=== PATIENT | male | born 1965 ===

== ENCOUNTER 2018-07-28 15:12 | Inpatient (IN) | payer OTHER ==
[2018-07-28 15:30] VITALS: O2SAT 100
[2018-07-28] MEDS ORDERED: Clindamycin 600mg/50ml D5W 600 MG/50 ML VIAL IVPB ONE (16:13)
--- NOTE | 2018-07-28 16:27 | ED PDOC ---
HPI: General Adult Time Seen by Provider: 07/28/18 16:03 Chief Complaint (Nursing): Psychiatric Evaluation Chief Complaint (Provider): Right lower extremity pain, auditory hallucinations History Per: Patient History/Exam Limitations: no limitations Additional Complaint(s): 53yo male, with history of schizophrenia, diabetes, comes to ER for evaluation of redness and swelling to his right lower extremity x 3 days. Patient was seen at [facility] recently and diagnosed with cellulitis, as well as a questionable DVT. Patient was discharged home on PO antibiotics but he is non- compliant. Patient additionally reports he has been having auditory hallucinations; patient unable to elucidate if the voices are directing him towards suicidal ideation. No additional medical complaints. Past Medical History Reviewed: Historical Data, Nursing Documentation, Vital Signs Vital Signs: Last Vital Signs Temp 98.4 F 07/28/18 15:27 Pulse 59 L 07/28/18 15:27 Resp 18 07/28/18 15:27 BP 132/80 07/28/18 15:27 Pulse Ox 100 07/28/18 15:27 - Medical History PMH: Anxiety, Asthma, Depression, Schizophrenia Denies: Chronic Kidney Disease - Surgical History Surgical History: No Surg Hx - Family History Family History: States: No Known Family Hx - Allergies Allergies/Adverse Reactions: Allergies Allergy/AdvReac Type Severity Reaction Status Date / Time No Known Allergies Allergy Verified 07/28/18 15:27 Review of Systems ROS Statement: Except As Marked, All Systems Reviewed And Found Negative Constitutional: Negative for: Fever, Chills Cardiovascular: Negative for: Chest Pain Respiratory: Negative for: Shortness of Breath Musculoskeletal: Positive for: Leg Pain (right) Neurological: Negative for: Weakness, Numbness Physical Exam - Reviewed Nursing Documentation Reviewed: Yes Vital Signs Reviewed: Yes - Physical Exam Appears: Positive for: Non-toxic, No Acute Distress Head Exam: Positive for: ATRAUMATIC, NORMAL INSPECTION, NORMOCEPHALIC Skin: Positive for: Normal Color Eye Exam: Positive for: Normal appearance Neck: Positive for: Normal, Supple Cardiovascular/Chest: Positive for: Regular Rate, Rhythm Respiratory: Positive for: Normal Breath Sounds. Negative for: Wheezing Pulses-Dorsalis Pedis (R): 2+ Pulses-Post. Tibialis (R): 2+ Extremity: Positive for: Tenderness (erythema and tenderness to right medial malleolus), Capillary Refill (< 2 seconds), Swelling (edema and erythema noted to ), Other (right lower extremity with superficial ulcer, present proximally 2x2cm on distal pre-tibial area. no drianage. ). Negative for: Calf Tenderness, Deformity Neurologic/Psych: Positive for: Alert, Oriented. Negative for: Motor/Sensory Deficits - ECG O2 Sat by Pulse Oximetry: 100 (RA) Pulse Ox Interpretation: Normal Medical Decision Making Medical Decision Makinyo male with cellulitis to right lower extremity, unlikely to have DVT as there is no calf tenderness Will try to obtain results of US done at [facility], [place]; if unable, will order US study Plan: -- Labs -- crisis evaluation -- IV Clindamycin -- EKG -- 1:1 Observation 1744 Chest x-ray FINDINGS: LUNGS: The lungs are well inflated and clear. PLEURA: No pleural effusions or pneumothorax. CARDIOVASCULAR: There is mild cardiomegaly. No aortic atherosclerotic calcifications present. OSSEOUS STRUCTURES: Within normal limits for the patient's age. VISUALIZED UPPER ABDOMEN: Normal. OTHER FINDINGS: None. IMPRESSION: No active pulmonary disease. 1800 US reports reviewed (from [facility]), patient noted to have chronic DVT in right lower extremity. Patient pending crisis evaluation. 1899 Patient to be signed out to Dr. Mason, pending labs, final dispo. Scribe Attestation: Documented by Aysha Salas acting as a scribe for Mik Mancini MD. Provider Attestation: All medical record entries made by the Scribe were at my direction and personally dictated by me. I have reviewed the chart and agree that the record accurately reflects my personal performance of the history, physical exam, medical decision making, and the department course for this patient. I have also personally directed, reviewed, and agree with the discharge instructions and disposition. Disposition - Clinical Impression Clinical Impression: Schizophrenia, Cellulitis, Chronic deep vein thrombosis (DVT) - Patient ED Disposition Is Patient to be Admitted: Transfer of Care - Disposition Disposition: Transfer of Care Disposition Time: 18:57 Condition: STABLE Forms: [facility] (Irish) Patient Signed Over To: Nancy Mason
--- NOTE | 2018-07-28 17:26 | RAD ---
Date of service: 07/28/2018 HISTORY: Cough COMPARISON: No prior. FINDINGS: LUNGS: The lungs are well inflated and clear. PLEURA: No pleural effusions or pneumothorax. CARDIOVASCULAR: There is mild cardiomegaly. No aortic atherosclerotic calcifications present. OSSEOUS STRUCTURES: Within normal limits for the patient's age. VISUALIZED UPPER ABDOMEN: Normal. OTHER FINDINGS: None. IMPRESSION: No active pulmonary disease.
[2018-07-28 17:29] LABS: BARBITURATES, UR NEGATIVE (NEGATIVE); BENZODIAZEPINES, UR NEGATIVE (NEGATIVE); OPIATES, UR NEGATIVE (NEGATIVE); PHENCYCLIDINE, UR NEGATIVE (NEGATIVE)
[2018-07-28 19:01] LABS: VENOUS BLOOD GAS BASE EXCESS 2.3 mmol/L (0.0-2.0); VENOUS BLOOD GAS PCO2 39 mmHg (40-60); VENOUS BLOOD GAS PO2 43 mm/Hg (30-55); VENOUS BLOOD PH 7.44 (7.32-7.43)
[2018-07-28 19:21] LABS: BASO % 0.5 % (0.0-2.0); EOS # 0.2 K/uL (0.0-0.7); EOS % 2.5 % (0.0-4.0); HEMOGLOBIN 12.6 g/dL (12.0-18.0); LYMPH # 1.5 K/uL (1.0-4.3); MEAN CELL VOLUME 87.6 fl (80.0-94.0); MEAN CORPUSCULAR HEMOGLOBIN 29.4 pg (27.0-31.0); MEAN CORPUSCULAR HGB CONC 33.5 g/dL (33.0-37.0); MEAN PLATELET VOLUME 7.8 fl (7.2-11.7); MONO # 0.7 K/uL (0.0-0.8); NEUT # 7.3 K/uL (1.8-7.0); RBC 4.28 Mil/uL (4.40-5.90); RED CELL DISTRIBUTION WIDTH 15.6 % (11.5-14.5); WHITE BLOOD COUNT 9.7 K/uL (4.8-10.8)
--- NOTE | 2018-07-28 19:22 | ED PDOC ---
- Laboratory Results Result Diagrams: 07/28/18 19:08 07/28/18 19:08 Lab Results: pO2 43 mm/Hg (30-55) 07/28/18 18:47 VBG pH 7.44 (7.32-7.43) H 07/28/18 18:47 VBG pCO2 39 mmHg (40-60) L 07/28/18 18:47 VBG HCO3 26.3 mmol/L 07/28/18 18:47 VBG Total CO2 27.7 mmol/L (22-28) 07/28/18 18:47 VBG O2 Sat (Calc) 83.9 % (40-65) H 07/28/18 18:47 VBG Base Excess 2.3 mmol/L (0.0-2.0) H 07/28/18 18:47 VBG Potassium 4.0 mmol/L (3.6-5.2) 07/28/18 18:47 Sodium 132.0 mmol/L (132-148) 07/28/18 18:47 Chloride 102.0 mmol/L (98-107) 07/28/18 18:47 Glucose 171 mg/dL (75-110) H 07/28/18 18:47 Lactate 1.5 mmol/L (0.7-2.1) 07/28/18 18:47 FiO2 21.0 % 07/28/18 18:47 - ECG O2 Sat by Pulse Oximetry: 100 (RA) Pulse Ox Interpretation: Normal Medical Decision Making Medical Decision Making: Receiving sign out: Patient signed out to me by Dr. Mancini at 1900 pending labs, final dispo. 1915 Patient seen by crisis team, and per Dr. Avery, patient to be admitted due to schizophrenia Scribe Attestation: Documented by Aysha Salas acting as a scribe for Nancy Mason MD. Provider Attestation: All medical record entries made by the Scribe were at my direction and personally dictated by me. I have reviewed the chart and agree that the record accurately reflects my personal performance of the history, physical exam, medical decision making, and the department course for this patient. I have also personally directed, reviewed, and agree with the discharge instructions and disposition. Disposition - Clinical Impression Clinical Impression: Schizophrenia, Cellulitis, Chronic deep vein thrombosis (DVT) - POA Present On Arrival: None - Disposition Disposition: Routine/Home Disposition Time: 19:16 Condition: STABLE
[2018-07-28 19:43] LABS: ALB/GLOB RATIO 1.1 (1.0-2.1); ALBUMIN 4.1 g/dL (3.5-5.0); ALT/SGPT 21 U/L (21-72); AST/SGOT 33 U/L (17-59); BLOOD UREA NITROGEN 15 mg/dl (9-20); CALCIUM 9.4 mg/dL (8.4-10.2); GFR NON-AFRICAN AMERICAN > 60
[2018-07-29] MEDS ORDERED: DiphenhydrAMINE 50 mg/ml Inj IM PRN (00:20)
[2018-07-29] MEDS ORDERED: Alum-Mag Hydrox-Simethicone Susp (30 mL) PO PRN (00:20)
[2018-07-29] MEDS ORDERED: Magnesium Hydroxide Susp 30 ml UD PO PRN (00:20)
--- NOTE | 2018-07-29 00:59 | PCM.BM ---
<Allen Pacheco - Last Filed: 07/29/18 00:55> Treatment Plan Problems - Problems identified on initial assessmt Altered Sleep Patterns Date Initiated: 07/29/18 Time Initiated: 00:56 Assessment reference: NA Status: Active Auditory Hallucinations Date Initiated: 07/29/18 Time Initiated: 00:56 Assessment reference: NA Status: Active Medication nonadherence Date Initiated: 07/29/18 Time Initiated: 00:57 Assessment reference: NA Status: Active Treatment assets and liabiliti Patient Assests: cooperative, negotiates basic needs, cognitively intact Patient Liabilities: live alone, financial problems, poor support system, substance abuse, medical problems, language/speech - Milieu Protocol Maintain good personal hygiene: daily Encourage regular showers, daily Remind patient to perform daily oral care, daily Assist patient to perform ADL's Conduct patient checks and document Observation sheet: Q15 minutes Maintain personal safety: every shift Educate patient to report safety concerns to staff, every shift Monitor environment for contraband/sharps Medication safety: Monitor for expected outcome, potential side effects: every shift, Assess barriers to learning: every shift, Assess readiness for medication education: every shift <Robbin Yun - Last Filed: 08/01/18 11:18> Discharge/Continuing Care - Treatment Team Participation Patient/Family/SO Statement: 08/01/18 11:19 Pt seen in treatment team on 07/31/18. Pt reported he is "ok" and "not feeling well." Pt reported he experienced a nightmare the previous night. Pt reported that the unit is too noisy and he has trouble resting. Pt expressed sadness that he does not have family in the area as they all reside in [place]. 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 Pt denied current SI/HI and AVT hallucinations. 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 ), resourceful, self-reliant, ADL independent, good support system (Circumstantial family support : Pt. identifies who resides in [place] as primary family support, although currently . Pt. reports having frequent communication with 4 brothers who reside in [place]. ), negotiates basic needs, cognitively intact Patient Liabilities: live alone (Pt. reports homelessness x1 year and currently residing with [facility]. ), financial problems (Pt. reports difficulties maintaining employment secondary to medical issues. Pt. recently filed for SSI and has money sent to him by occasionally. ), relationship conflicts (Pt. reports strained relationship with adult daughter (with who lives) and denies having communication with daughter x4 years. Pt. declined to elaborate on nature of discord), substance abuse (Pt. reports cocaine use x10 years and crack cocaine use x2 years. Pt. denied hx of outpatient or inpatient substance abuse tx. ), medical problems (Pt. reports hx of asthma, diabetes, cellulitis, blood clots. Pt. presents with wound to leg. Please see H&P.), legal issue ( Pt. reports being incarcerated in [place] for political opposition. Pt denies outstanding legal issues.), language/speech (Pt. primarily georgian speaking (limited conversational congolese).) Family Contact Family involvement: Famliy/SO not involved Family contact: Family has been contacted by patient, Patient declines to allow family contact at present - Goals for Treatment Patient goals for treatment: Patient to continue stabilization on 3NP through medication management and group/supportive therapy to address sxs of depression (improve sleep, energy, motivation), reduce auditory hallucinations, and eliminate SI. Patient to be encouraged to attend groups regularly to promote self-awareness, sobriety, and improve insight, compliance, coping skills and self-esteem. Patient to be provided with referral for appropriate level of aftercare to reduce risk of future hospitalizations and ensure safety in the community. Pt. identifies primary tx goal as having AH reduced and sleep disturbances improved so pt. can be better able to complete SSI process and work towards finding stable employment/housing. Discharge/Continuing Care - Education Needs Education Needs: Patient Medication, Patient Diagnosis/Disease Process, Patient Coping Skills, Patient Community resources, Patient Aftercare Safety Plan - Discharge Discharge Criteria: Tolerates medication w/o severe side effects, Free of Suicidal thoughts, Normal sleep pattern, Ability to care for self, No longer exhibiting s/s of withdrawal, Reduction of target symptoms (AH) Discharge to:: Penitentiary ([facility]), Substance Abuse Rehab (Pt. currently not agreeable to having inpatient rehab referrals completed.), Other (Pt. agreeable to [facility](outpatient substance abuse tx) and [facility] referrals.) - Treatment Team Participation Discussed with Family/SO: No Was Patient/Family/SO present at Treatment Team Meeting: Yes <Odette Avery - Last Filed: 08/03/18 10:01> - Diagnosis (1) Depression Status: Acute Interventions: 08/03/18 10:00 psychotherapy, pharmactherapy (2) Cocaine use disorder Status: Acute Interventions: 08/03/18 10:01 motivational therapy
[2018-07-29 08:16] LABS: INR 1.3; PROTHROMBIN TIME 14.8 Seconds (9.8-13.1)
[2018-07-29] MEDS ORDERED: Tmp-Smz 800 mg-160 mg DS Tab PO SCH (09:00)
[2018-07-29] MEDS ORDERED: Naproxen 500 MG TAB PO SCH (09:00)
--- NOTE | 2018-07-29 09:04 | CARD ---
APPROVED REPORT Date of service: 07/28/2018 EKG Measurement Heart [id number] <Conclusion> Sinus bradycardia Otherwise normal ECG
[2018-07-29] MEDS: Fluticasone-Salmeterol 100-50mcg Diskus IH SCH ×2 (10:02→21:25)
--- NOTE | 2018-07-29 10:46 | CP.PCM.CON ---
<PinedoHaroon - Last Filed: 07/29/18 11:42> History of Present Illness - History of Present Illness History of Present Illness: 53 y/o M with PMHx of DM, asthma and schizophrenia admitted to hospital for for suicidal ideation and auditory hallucinations. Patient was also diagnosed with right lower extremity cellulitis 3 days ago and received IV antibiotics at [facility]. Patient was discharged home on PO Abx but noncompliant. He also reports R upper back and midline neck swelling and redness for about 2-3 days. Reports having right LE chronic ulcer, questionable DVT for past 1 year and multiple episodes of right leg swelling and infection. Denies any fever, chills, nausea, vomiting, diarrhea, constipation, dizziness, CP or SOB. Pt takes Metformin and januvia for DM and ventolin PRN for asthma. Pt lives in [facility]. No additional medical complaints. PMD: None PMHx: DM, asthma, Schizophrenia, depression PSHx: Denies Allergies: Denies Hospitalization: Multiple previous admission at [facility] for foot infection and ulcer. Family Hx: Denies Social Hx: + coccain use. + alcohol use. Review of Systems - Constitutional Constitutional: absent: Chills, Fever - EENT Eyes: absent: Change in Vision Nose/Mouth/Throat: absent: Epistaxis - Cardiovascular Cardiovascular: absent: Chest Pain, Dyspnea - Respiratory Respiratory: absent: Cough - Gastrointestinal Gastrointestinal: absent: Abdominal Pain, Constipation, Diarrhea, Nausea - Genitourinary Genitourinary: absent: Change in Urinary Stream, Dysuria - Musculoskeletal Musculoskeletal: absent: Back Pain, Neck Pain - Integumentary Integumentary: Erythema, Furuncle, Rash, Skin Ulcer, Swelling Past Patient History - Past Social History Smoking Status: Never Smoked - CARDIAC Hx Cardiac Disorders: No - PULMONARY Hx Respiratory Disorders: Yes (asthma) - NEUROLOGICAL Hx Neurological Disorder: No - HEENT Hx HEENT Problems: No - RENAL Hx Chronic Kidney Disease: No - ENDOCRINE/METABOLIC Hx Endocrine Disorders: Yes (diabetes mellitus type 2) - HEMATOLOGICAL/ONCOLOGICAL Hx Blood Disorders: No - INTEGUMENTARY Hx Dermatological Problems: Yes Hx Cellulitis: Yes (right leg) - MUSCULOSKELETAL/RHEUMATOLOGICAL Hx Musculoskeletal Disorders: No - GASTROINTESTINAL Hx Gastrointestinal Disorders: No - GENITOURINARY/GYNECOLOGICAL Hx Genitourinary Disorders: No - PSYCHIATRIC Hx Substance Use: Yes (crack cocaine) - SURGICAL HISTORY Hx Surgeries: No - ANESTHESIA Hx Anesthesia: No Meds Allergies/Adverse Reactions: Allergies Allergy/AdvReac Type Severity Reaction Status Date / Time No Known Allergies Allergy Verified 07/28/18 15:27 - Medications Medications: Current Medications Acetaminophen (Tylenol 325mg Tab) 650 mg PO Q4 PRN PRN Reason: pain level 4-7 Al Hydrox/Mg Hydrox/Simethicone (Maalox Plus 30 Ml) 30 ml PO Q4 PRN PRN Reason: Dyspepsia Cephalexin Monohydrate (Keflex) 500 mg PO QID [facility]; Protocol Last Admin: 07/29/18 10:02 Dose: 500 mg Diphenhydramine HCl (Benadryl) 50 mg IM Q6 PRN PRN Reason: Extrapyramidal S/S Unable PO Diphenhydramine HCl (Benadryl) 50 mg PO Q6 PRN PRN Reason: Extrapyramidal Symptoms Diphenhydramine HCl (Benadryl) 50 mg PO HS PRN PRN Reason: Sleep Last Admin: 07/29/18 00:38 Dose: 50 mg Haloperidol (Haldol) 5 mg PO Q4 PRN PRN Reason: Agitation Haloperidol Lactate (Haldol) 5 mg IM Q4 PRN PRN Reason: Agitation, Unable to Take PO Lorazepam (Ativan) 2 mg IM Q8H PRN PRN Reason: Anxiety/Agitation,Unable PO Lorazepam (Ativan) 1 mg PO Q8 PRN PRN Reason: Anxiety/Agitation Magnesium Hydroxide (Milk Of Magnesia) 30 ml PO HS PRN PRN Reason: Constipation Metformin HCl (Glucophage) 1,000 mg PO BID [facility] Last Admin: 07/29/18 10:03 Dose: 1,000 mg Fluticasone/Salmeterol (Advair Diskus 100/50) 1 puff IH Q12 [facility] Last Admin: 07/29/18 10:02 Dose: 1 puff Sitagliptin Phosphate (Januvia) 50 mg PO DAILY [facility] Last Admin: 07/29/18 10:02 Dose: 50 mg Trimethoprim/Sulfamethoxazole (Bactrim Ds Tab) 1 tab PO BID [facility]; Protocol Last Admin: 07/29/18 10:02 Dose: 1 tab Physical Exam - Constitutional Appears: Well, No Acute Distress - Head Exam Head Exam: ATRAUMATIC, NORMAL INSPECTION, NORMOCEPHALIC - Eye Exam Eye Exam: EOMI, Normal appearance - ENT Exam ENT Exam: Mucous Membranes Moist - Respiratory Exam Respiratory Exam: Clear to Auscultation Bilateral, NORMAL BREATHING PATTERN - Cardiovascular Exam Cardiovascular Exam: REGULAR RHYTHM, +S1, +S2 - GI/Abdominal Exam GI & Abdominal Exam: Normal Bowel Sounds, Soft. absent: Distended - Extremities Exam Extremities exam: Positive for: pedal edema, tenderness Additional comments: Right LE: Hyperpigmentation of R Lower leg with 3 x 3 chronic ulcer with tenderness, + Erythema and tenderness on R medial malleolus. No calf tenderness B/L - Back Exam Back exam: absent: paraspinal tenderness, tenderness - Neurological Exam Neurological exam: Alert, Altered, Oriented x3 - Skin Skin Exam: Erythema, Rash, Warm Additional comments: Erythema and swelling noted with central punctum on R upper back and midline neck. Results - Vital Signs Recent Vital Signs: Last Vital Signs Temp 98.0 F 07/29/18 09:20 Pulse 70 07/29/18 09:20 Resp 18 07/29/18 09:20 BP 150/80 07/29/18 09:20 Pulse Ox 100 07/28/18 19:22 - Labs Result Diagrams: 07/28/18 19:08 07/28/18 19:08 Labs: Laboratory Results - last 24 hr 07/28/18 07/28/18 07/28/18 16:55 18:47 19:08 WBC RBC Hgb Hct MCV MCH MCHC RDW Plt Count MPV Neut % (Auto) Lymph % (Auto) Bowman % (Auto) Eos % (Auto) Baso % (Auto) Neut # (Auto) Lymph # (Auto) Bowman # (Auto) Eos # (Auto) Baso # (Auto) PT INR pO2 43 VBG pH 7.44 H VBG pCO2 39 L VBG HCO3 26.3 VBG Total CO2 27.7 VBG O2 Sat (Calc) 83.9 H VBG Base Excess 2.3 H VBG Potassium 4.0 Sodium 132.0 136 Chloride 102.0 96 L Glucose 171 H Lactate 1.5 FiO2 21.0 Potassium 4.0 Carbon Dioxide 31 H Anion Gap 13 BUN 15 Creatinine 1.1 Est GFR ( Amer) > 60 Est GFR (Non-Af Amer) > 60 POC Glucose (mg/dL) Random Glucose 172 H Calcium 9.4 Total Bilirubin 0.3 AST 33 ALT 21 Alkaline Phosphatase 62 Total Protein 7.8 Albumin 4.1 Globulin 3.6 Albumin/Globulin Ratio 1.1 Triglycerides Cholesterol LDL Cholesterol Direct HDL Cholesterol Thyroxine (T4) TSH 3rd Generation Venous Blood Potassium 4.0 Urine Opiates Screen Negative Urine Methadone Screen Negative Ur Barbiturates Screen Negative Ur Phencyclidine Scrn Negative Ur Amphetamines Screen Negative U Benzodiazepines Scrn Negative U Oth Cocaine Metabols Positive H U Cannabinoids Screen Negative Alcohol, Quantitative < 10 07/28/18 07/29/18 07/29/18 19:08 06:44 07:54 WBC 9.7 RBC 4.28 L Hgb 12.6 Hct 37.5 MCV 87.6 MCH 29.4 MCHC 33.5 RDW 15.6 H Plt Count 241 MPV 7.8 Neut % (Auto) 75.0 Lymph % (Auto) 15.0 L Bowman % (Auto) 7.0 Eos % (Auto) 2.5 Baso % (Auto) 0.5 Neut # (Auto) 7.3 H Lymph # (Auto) 1.5 Bowman # (Auto) 0.7 Eos # (Auto) 0.2 Baso # (Auto) 0.0 PT INR pO2 VBG pH VBG pCO2 VBG HCO3 VBG Total CO2 VBG O2 Sat (Calc) VBG Base Excess VBG Potassium Sodium Chloride Glucose Lactate FiO2 Potassium Carbon Dioxide Anion Gap BUN Creatinine Est GFR ( Amer) Est GFR (Non-Af Amer) POC Glucose (mg/dL) 89 Random Glucose Calcium Total Bilirubin AST ALT Alkaline Phosphatase Total Protein Albumin Globulin Albumin/Globulin Ratio Triglycerides 85 Cholesterol 160 LDL Cholesterol Direct 80 HDL Cholesterol 47 Thyroxine (T4) 8.18 TSH 3rd Generation 1.76 Venous Blood Potassium Urine Opiates Screen Urine Methadone Screen Ur Barbiturates Screen Ur Phencyclidine Scrn Ur Amphetamines Screen U Benzodiazepines Scrn U Oth Cocaine Metabols U Cannabinoids Screen Alcohol, Quantitative 07/29/18 07:54 WBC RBC Hgb Hct MCV MCH MCHC RDW Plt Count MPV Neut % (Auto) Lymph % (Auto) Bowman % (Auto) Eos % (Auto) Baso % (Auto) Neut # (Auto) Lymph # (Auto) Bowman # (Auto) Eos # (Auto) Baso # (Auto) PT 14.8 H INR 1.3 pO2 VBG pH VBG pCO2 VBG HCO3 VBG Total CO2 VBG O2 Sat (Calc) VBG Base Excess VBG Potassium Sodium Chloride Glucose Lactate FiO2 Potassium Carbon Dioxide Anion Gap BUN Creatinine Est GFR ( Amer) Est GFR (Non-Af Amer) POC Glucose (mg/dL) Random Glucose Calcium Total Bilirubin AST ALT Alkaline Phosphatase Total Protein Albumin Globulin Albumin/Globulin Ratio Triglycerides Cholesterol LDL Cholesterol Direct HDL Cholesterol Thyroxine (T4) TSH 3rd Generation Venous Blood Potassium Urine Opiates Screen Urine Methadone Screen Ur Barbiturates Screen Ur Phencyclidine Scrn Ur Amphetamines Screen U Benzodiazepines Scrn U Oth Cocaine Metabols U Cannabinoids Screen Alcohol, Quantitative Assessment & Plan - Assessment and Plan (Free Text) Assessment: 53 y/o M with Hx of schizophrenia, depression, DM and asthma admitted to hospital for suicidal ideation, auditory hallucinations. Patient also has Right lower extremity, right upper back and neck cellulitis. Plan: Auditory hallucinations/ sleep distrubance - Manage as per psych Cellulitis - Likely secondary to insect bite, [facility] stay - Afebrile, VSS - Will resume Kelfex 500 QID - DC Bactrim due to possible interaction w/ warfarin - Tylenol 650 Q4PRN for pain - F/U Blood Cx DM - Continue home medications Metformin and januvia - Glucose 89 today - F/U A1c Asthma - Controlled with advair 1 puff BID - Continue home meds. Chronic DVT - Will resume home medication - Start Warfarin 8 mg PO dailly - F/U INR in 72 hrs <Joanne Munoz - Last Filed: 07/30/18 09:09> Meds - Medications Medications: Current Medications Acetaminophen (Tylenol 325mg Tab) 650 mg PO Q4 PRN PRN Reason: pain level 4-7 Al Hydrox/Mg Hydrox/Simethicone (Maalox Plus 30 Ml) 30 ml PO Q4 PRN PRN Reason: Dyspepsia Aripiprazole (Abilify) 5 mg PO HS SAROJ Last Admin: 07/29/18 21:22 Dose: 5 mg Cephalexin Monohydrate (Keflex) 500 mg PO QID [facility]; Protocol Last Admin: 07/30/18 08:38 Dose: 500 mg Diphenhydramine HCl (Benadryl) 50 mg IM Q6 PRN PRN Reason: Extrapyramidal S/S Unable PO Diphenhydramine HCl (Benadryl) 50 mg PO Q6 PRN PRN Reason: Extrapyramidal Symptoms Diphenhydramine HCl (Benadryl) 50 mg PO HS PRN PRN Reason: Sleep Last Admin: 07/29/18 00:38 Dose: 50 mg Gabapentin (Neurontin) 100 mg PO TID [facility] Last Admin: 07/30/18 08:38 Dose: 100 mg Haloperidol (Haldol) 5 mg PO Q4 PRN PRN Reason: Agitation Haloperidol Lactate (Haldol) 5 mg IM Q4 PRN PRN Reason: Agitation, Unable to Take PO Lorazepam (Ativan) 2 mg IM Q8H PRN PRN Reason: Anxiety/Agitation,Unable PO Lorazepam (Ativan) 1 mg PO Q8 PRN PRN Reason: Anxiety/Agitation Magnesium Hydroxide (Milk Of Magnesia) 30 ml PO HS PRN PRN Reason: Constipation Metformin HCl (Glucophage) 1,000 mg PO BID [facility] Last Admin: 07/30/18 08:38 Dose: 1,000 mg Fluticasone/Salmeterol (Advair Diskus 100/50) 1 puff IH Q12 [facility] Last Admin: 07/30/18 08:38 Dose: 1 puff Sertraline HCl (Zoloft) 25 mg PO DAILY [facility] Last Admin: 07/30/18 08:38 Dose: 25 mg Sitagliptin Phosphate (Januvia) 50 mg PO DAILY [facility] Last Admin: 07/30/18 08:37 Dose: 50 mg Trazodone HCl (Desyrel) 50 mg PO HS [facility] Last Admin: 07/29/18 21:23 Dose: 50 mg Results - Vital Signs Recent Vital Signs: Last Vital Signs Temp 97.9 F 07/29/18 17:00 Pulse 71 07/29/18 17:00 Resp 18 07/29/18 17:00 BP 142/80 07/29/18 17:00 Pulse Ox 100 07/28/18 19:22 - Labs Result Diagrams: 07/28/18 19:08 07/28/18 19:08 Labs: Laboratory Results - last 24 hr 07/29/18 07/29/18 07/29/18 07:54 07:54 10:59 POC Glucose (mg/dL) 97 Hemoglobin A1c 6.5 RPR Nonreactive 07/29/18 07/29/18 07/30/18 16:56 20:11 06:22 POC Glucose (mg/dL) 134 H 122 H 153 H Hemoglobin A1c RPR Attending/Attestation - Attestation I have personally seen and examined this patient.: Yes I have fully participated in the care of the patient.: Yes I have reviewed all pertinent clinical information: Yes Notes (Text): 07/30/18 09:09 Agree with findings and plan as above.
--- NOTE | 2018-07-29 15:32 | PCM.PSYCH ---
Initial Psychiatric Evaluation - Initial Psychiatric Evaluation Type of Admission: Voluntary Legal Status: Capacity Chief Complaint (in patient's own words): I am very depressed History of Present Illness and Precipitating Events: pt is 53 ys old male curently not in formal psychiatric treatment, previously diagnosed with schizophrenia/ depression, presented to ER with depressed mood and suicidal ideation pt has been increasingly depressed in the context of medical problems/DVT financial problems and being homeless living in a group home, pt reported for last few weeks, he has been experiencing poor sleep, decreased appetite feeling hope less and helpless, self medicating with cocaine and started experiencing auditroy hallucinations telling him to hurt himself on the unit patient continues to be depressed, reporting passive suicidal ideation without active plan on the unit , reporting non command auditory hallucinations putting him down Current Medications: Active Medications Generic Name Dose Route Start Last Admin Trade Name Freq PRN Reason Stop Dose Admin Acetaminophen 650 mg 07/29/18 00:20 Tylenol 325mg Tab PO Q4 PRN pain level 4-7 Al Hydrox/Mg Hydrox/Simethicone 30 ml 07/29/18 00:20 Maalox Plus 30 Ml PO Q4 PRN Dyspepsia Aripiprazole 5 mg 07/29/18 22:00 Abilify PO HS SAROJ Cephalexin Monohydrate 500 mg 07/29/18 09:00 07/29/18 10:02 Keflex PO 500 mg QID SAROJ Administration Protocol Diphenhydramine HCl 50 mg 07/29/18 00:20 Benadryl IM Q6 PRN Extrapyramidal S/S Unable PO Diphenhydramine HCl 50 mg 07/29/18 00:20 Benadryl PO Q6 PRN Extrapyramidal Symptoms Diphenhydramine HCl 50 mg 07/29/18 00:22 07/29/18 00:38 Benadryl PO 50 mg HS PRN Administration Sleep Gabapentin 100 mg 07/29/18 17:00 Neurontin PO TID SAROJ Haloperidol 5 mg 07/29/18 00:20 Haldol PO Q4 PRN Agitation Haloperidol Lactate 5 mg 07/29/18 00:20 Haldol IM Q4 PRN Agitation, Unable to Take PO Lorazepam 2 mg 07/29/18 00:20 Ativan IM Q8H PRN Anxiety/Agitation,Unable PO Lorazepam 1 mg 07/29/18 00:20 Ativan PO Q8 PRN Anxiety/Agitation Magnesium Hydroxide 30 ml 07/29/18 00:20 Milk Of Magnesia PO HS PRN Constipation Metformin HCl 1,000 mg 07/29/18 09:00 07/29/18 10:03 Glucophage PO 1,000 mg BID SAROJ Administration Fluticasone/Salmeterol 1 puff 07/29/18 09:00 07/29/18 10:02 Advair Diskus 100/50 IH 1 puff Q12 SAROJ Administration Sertraline HCl 25 mg 07/30/18 09:00 Zoloft PO DAILY SAROJ Sitagliptin Phosphate 50 mg 07/29/18 09:00 07/29/18 10:02 Januvia PO 50 mg DAILY SAROJ Administration Trazodone HCl 50 mg 07/29/18 22:00 Desyrel PO HS SAROJ Past Psychiatric History - Past Psychiatric History Explanation of prior treatment: no previous psychiatric hospitalizations History of ETOH/Drug Use: cocaine Pertinent Medical Hx (Current Medical&Sleep Prob, Allergies): Allergies Allergy/AdvReac Type Severity Reaction Status Date / Time No Known Allergies Allergy Verified 07/28/18 15:27 Cephalexin [cephalexin] 500 mg PO QID 07/28/18 Fluticasone/Salmeterol [Fluticasone-Salmeterol 113-14] 1 each IH DAILY 07/28/18 MetFORMIN [glucOPHAGE] 1,000 mg PO BID 07/28/18 Naproxen [Naprosyn] 500 mg PO Q12 07/28/18 SITagliptin [Januvia] 50 mg PO DAILY 07/28/18 Sulfamethoxazole/Trimethoprim [Bactrim DS 800 mg-160 mg] 1 tab PO BID 07/28/18 Warfarin [Coumadin] 8 mg PO DAILY 07/28/18 Mental Status Examination - Personal Presentation Personal Presentation: Looks older than stated age - Affect Affect: Constricted, Depressed - Motor Activity Motor Activity: Psychomotor Retardation - Reliability in Providing Information Reliability in Providing Information: Fair - Speech Speech: Relevant - Mood Mood: Depressed, Anxious - Formal Thought Process Formal Thought Process: Hallucinations, Circumstantial - Hallucinations/Delusions Hallucinations: Auditory - Obsessions/Compulsions Obsessions: No Compulsions: No - Cognitive Functions Orientation: Person, Place Sensorium: Alert Attention/Concentration: Easily distracted Abstract Thinking: Singer Judgement: Imparied, as evidence by: Poor judgement, Imparied, as evidence by: Lack of insight into illness - Risk Risk: Suicidal, Diminished functioning - Strength & Assets Inventory Strength & Assets Inventory: Life experience - Limitations Additional comments: poor social support DSM 5 DX - DSM 5 DSM 5 Diagnosis: major depression cocaine abuse - Recommended/Plan of Treatment Treatment Recommendations and Plan of Treatment: start zoloft 25mg daily neurontin 100mg tid abilify 5mg qhs motivational group and supportive therapy
[2018-07-30] MEDS: Fluticasone-Salmeterol 100-50mcg Diskus IH SCH ×2 (08:38→21:11)
--- NOTE | 2018-07-30 15:37 | PCM.PYCHPN ---
Psychiatric Progress Note - Psychiatric Progress Note Patient seen today, length of contact: pt evaluated discussed with team chart reviewed Patient Chief Complaint: I feel very tired Problems Identified/Issues Discussed: pt seen in bed , poor eye contact, guarded, poor motivation, low energy, feeling hopeless, pt currently going through cocaine withdrawal, continues to report non command auditory hallucinations, denied command hallucinations, denied active thoughts of self harm on the unit Medical Problems: no previous psychiatric hospitalizations DSM 5 Symptoms Update: 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 Medication Change: Yes (increase zoloft gradually) Medical Record Reviewed: Yes Mental Status Examination - Cognitive Function Orientation: Person, Place Memory: Intact Attention: WNL Concentration: Poor Association: WNL Fund of Knowledge: Poor Decription of patient's judgement and insights: partial insight , poor judgment - Mood Mood: Depressed, Anxious - Affect Affect: Constricted, Depressed - Speech Speech: Soft - Formal Thought Process Formal Thought Process: Hallucinations, Circumstantial - Suicidal Ideation Suicidal Ideation: No - Homicidal Ideation Homicidal Ideation: No Goal/Treatment Plan - Goal/Treatment Plan Need for Continued Stay: Severe depression anxiety, Discharge may exacerbated symptoms Progress Toward Problem(s) and Goals/Treatment Plan: zoloft 25mg daily/ increase gradually neurontin 100mg tid abilify 5mg qhs motivational group and supportive therapy
[2018-07-30] MEDS: Naproxen 500 MG TAB PO SCH (17:40)
[2018-07-30 20:56] LABS: INR 1.3
[2018-07-31] MEDS: Fluticasone-Salmeterol 100-50mcg Diskus IH SCH ×2 (08:58→21:23)
[2018-07-31] MEDS: Naproxen 500 MG TAB PO SCH ×2 (09:00→17:33)
[2018-07-31 09:44] LABS: INR 1.2; PROTHROMBIN TIME 14.1 Seconds (9.8-13.1)
--- NOTE | 2018-07-31 16:02 | PCM.PYCHPN ---
Psychiatric Progress Note - Psychiatric Progress Note Patient seen today, length of contact: pt evaluated discussed with team chart reviewed Patient Chief Complaint: I still feel depressed Problems Identified/Issues Discussed: pt evaluated with treatment team, presenting with depressed mood and affect, relates that to his current medical and financial problems, discussed with pt importance of attending groups and participating in treatment, discussed increasing dose of zoloft, motivational therapy provided about cocaine use and its effect on current mental status , pt denied command hallucinations, denied active thoughts of self harm on the unit Medical Problems: no previous psychiatric hospitalizations Medication Change: Yes (increase zoloft gradually) Medical Record Reviewed: Yes Mental Status Examination - Cognitive Function Orientation: Person, Place Memory: Intact Attention: WNL Concentration: Poor Association: WNL Fund of Knowledge: Poor Decription of patient's judgement and insights: partial insight , poor judgment - Mood Mood: Depressed, Anxious - Affect Affect: Constricted, Depressed - Speech Speech: Soft - Formal Thought Process Formal Thought Process: Hallucinations, Circumstantial - Suicidal Ideation Suicidal Ideation: No - Homicidal Ideation Homicidal Ideation: No Goal/Treatment Plan - Goal/Treatment Plan Need for Continued Stay: Severe depression anxiety, Discharge may exacerbated symptoms Progress Toward Problem(s) and Goals/Treatment Plan: zoloft 50mg daily/ increase gradually neurontin 100mg tid abilify 5mg qhs wound care consult podiatry consult motivational group and supportive therapy
--- NOTE | 2018-07-31 16:25 | CP.PCM.CON ---
History of Present Illness - History of Present Illness History of Present Illness: Podiatry consult note for Dr. Villalba, 53 y/o M with PMHx of DM, asthma and schizophrenia seen and evaluated for right lower extremity cellulitis. Patient states it started about 3 days ago and patient received IV antibiotics at [facility]. Patient was discharged home on PO Abx, however, patient states he is non-compliant at this time. Patient also reports having right LE chronic abscess, which is painful. Patient denies any fever, chills, nausea, vomiting, diarrhea, constipation, dizziness, CP or SOB. PMD: None PMHx: DM, asthma, Schizophrenia, depression PSHx: Denies Allergies: Denies Hospitalization: Multiple previous admission at [facility] for foot infection and ulcer. Family Hx: Denies Social Hx: + coccain use. + alcohol use. Review of Systems - Review of Systems All systems: reviewed and no additional remarkable complaints except Review of Systems: As per HPI Past Patient History - Past Social History Smoking Status: Never Smoked - CARDIAC Hx Cardiac Disorders: No - PULMONARY Hx Respiratory Disorders: Yes (asthma) - NEUROLOGICAL Hx Neurological Disorder: No - HEENT Hx HEENT Problems: No - RENAL Hx Chronic Kidney Disease: No - ENDOCRINE/METABOLIC Hx Endocrine Disorders: Yes (diabetes mellitus type 2) - HEMATOLOGICAL/ONCOLOGICAL Hx Blood Disorders: No - INTEGUMENTARY Hx Dermatological Problems: Yes Hx Cellulitis: Yes (right leg) - MUSCULOSKELETAL/RHEUMATOLOGICAL Hx Musculoskeletal Disorders: No - GASTROINTESTINAL Hx Gastrointestinal Disorders: No - GENITOURINARY/GYNECOLOGICAL Hx Genitourinary Disorders: No - PSYCHIATRIC Hx Substance Use: Yes (crack cocaine) - SURGICAL HISTORY Hx Surgeries: No - ANESTHESIA Hx Anesthesia: No Meds Allergies/Adverse Reactions: Allergies Allergy/AdvReac Type Severity Reaction Status Date / Time No Known Allergies Allergy Verified 07/28/18 15:27 - Medications Medications: Current Medications Acetaminophen (Tylenol 325mg Tab) 650 mg PO Q4 PRN PRN Reason: pain level 4-7 Al Hydrox/Mg Hydrox/Simethicone (Maalox Plus 30 Ml) 30 ml PO Q4 PRN PRN Reason: Dyspepsia Aripiprazole (Abilify) 5 mg PO HS [facility] Last Admin: 07/30/18 21:10 Dose: 5 mg Cephalexin Monohydrate (Keflex) 500 mg PO QID [facility]; Protocol Last Admin: 07/31/18 13:16 Dose: 500 mg Diphenhydramine HCl (Benadryl) 50 mg IM Q6 PRN PRN Reason: Extrapyramidal S/S Unable PO Diphenhydramine HCl (Benadryl) 50 mg PO Q6 PRN PRN Reason: Extrapyramidal Symptoms Diphenhydramine HCl (Benadryl) 50 mg PO HS PRN PRN Reason: Sleep Last Admin: 07/30/18 21:23 Dose: 50 mg Gabapentin (Neurontin) 100 mg PO TID [facility] Last Admin: 07/31/18 13:16 Dose: 100 mg Haloperidol (Haldol) 5 mg PO Q4 PRN PRN Reason: Agitation Haloperidol Lactate (Haldol) 5 mg IM Q4 PRN PRN Reason: Agitation, Unable to Take PO Lorazepam (Ativan) 2 mg IM Q8H PRN PRN Reason: Anxiety/Agitation,Unable PO Lorazepam (Ativan) 1 mg PO Q8 PRN PRN Reason: Anxiety/Agitation Magnesium Hydroxide (Milk Of Magnesia) 30 ml PO HS PRN PRN Reason: Constipation Metformin HCl (Glucophage) 1,000 mg PO BID [facility] Last Admin: 07/31/18 09:01 Dose: 1,000 mg Naproxen (Naproxen) 500 mg PO BID [facility] Last Admin: 07/31/18 09:00 Dose: 500 mg Fluticasone/Salmeterol (Advair Diskus 100/50) 1 puff IH Q12 [facility] Last Admin: 07/31/18 08:58 Dose: 1 puff Sitagliptin Phosphate (Januvia) 50 mg PO DAILY [facility] Last Admin: 07/31/18 09:01 Dose: 50 mg Trazodone HCl (Desyrel) 50 mg PO HS [facility] Last Admin: 07/30/18 21:10 Dose: 50 mg Physical Exam - Constitutional Appears: Well, Non-toxic, No Acute Distress - Head Exam Head Exam: ATRAUMATIC, NORMOCEPHALIC - Extremities Exam Additional comments: Bilateral Lower Extremity Exam VASC: DP and PT 2/4 bilaterally, CFT less than 3 seconds X 10, no edema, positive erythema to the RLE NEURO: grossly intact DERM: superficial ulceration noted to the medial malleolus of the right leg, with positive fluctuance, and erythema, no probe to bone, no tunneling, no malodor, another ulceration noted to the anterior leg about 3 cm X 3 cm with granular base, no erythema, no probe to bone, no tunneling, no malodor ORTHO: pain on palpation to the abscess, MSK 5/5 - Neurological Exam Neurological exam: Alert, Oriented x3 - Psychiatric Exam Psychiatric exam: Normal Affect, Normal Mood Results - Vital Signs Recent Vital Signs: Last Vital Signs Temp 97.1 F L 07/31/18 16:11 Pulse 101 H 07/31/18 16:11 Resp 18 07/31/18 16:11 BP 124/83 07/31/18 16:11 Pulse Ox 100 07/28/18 19:22 - Labs Result Diagrams: 07/28/18 19:08 07/28/18 19:08 Labs: Laboratory Results - last 24 hr 07/30/18 07/30/18 07/30/18 16:52 20:13 20:40 PT 15.0 H INR 1.3 POC Glucose (mg/dL) 114 H 160 H 07/31/18 07/31/18 07/31/18 06:24 09:00 12:20 PT 14.1 H INR 1.2 POC Glucose (mg/dL) 99 136 H Assessment & Plan - Assessment and Plan (Free Text) Assessment: 53 y/o male consulted on for RLE cellulitis with right leg superficial abscess Plan: Patient seen and evaluated Plan discussed with Dr. Villalba Chart, labs and vitals were reviewed Abscess debrided with a #[id number] and about 5cc of purulent drainage was expressed Patient wound was cleaned with saline and dressed with xeroform, ABD, paper tape Continue PO Abx Wound cultures were obtained Right ankle xrays were ordered Right leg MRI without contrast was ordered Podiatry will continue to follow patient while in house - Date & Time Date: 07/31/18 Time: 16:55
[2018-08-01 07:13] LABS: INR 1.3; PROTHROMBIN TIME 14.6 Seconds (9.8-13.1)
--- NOTE | 2018-08-01 09:03 | PCM.PYCHPN ---
Psychiatric Progress Note - Psychiatric Progress Note Patient seen today, length of contact: pt evaluated discussed with team chart reviewed Patient Chief Complaint: pt still hears voices telling him that he is no good and nothing better for you . t feels that his body is dying in a nightmare and gets very scared .pt remains with poor insight and need further stabilization. Medication Change: Yes (increase zoloft gradually) Medical Record Reviewed: Yes Mental Status Examination - Cognitive Function Orientation: Person, Place Memory: Intact Attention: WNL Concentration: Poor Association: WNL Fund of Knowledge: Poor - Mood Mood: Depressed, Anxious - Affect Affect: Constricted, Depressed - Speech Speech: Soft - Formal Thought Process Formal Thought Process: Hallucinations, Circumstantial - Suicidal Ideation Suicidal Ideation: No - Homicidal Ideation Homicidal Ideation: No Goal/Treatment Plan - Goal/Treatment Plan Need for Continued Stay: Severe depression anxiety, Discharge may exacerbated symptoms Progress Toward Problem(s) and Goals/Treatment Plan: will increase abilify to 7 mg hs to address the depression and psychosis and engage pt in therapy and groups. D/ c plans as per dr fofana.
[2018-08-01] MEDS: Naproxen 500 MG TAB PO SCH ×2 (09:49→17:58)
[2018-08-01] MEDS: Fluticasone-Salmeterol 100-50mcg Diskus IH SCH ×2 (09:50→21:45)
--- NOTE | 2018-08-01 14:22 | CP.PCM.PN ---
Subjective - Date & Time of Evaluation Date of Evaluation: 08/01/18 Time of Evaluation: 14:19 - Subjective Subjective: Podiatry progress note for Dr. Villalba, 53 y/o M with PMHx of DM, asthma and schizophrenia seen and evaluated for right lower extremity cellulitis. AAOx3, denies pain to the lower extremity. Patient denies any fever, chills, nausea, vomiting, diarrhea, constipation, dizziness, CP or SOB. Objective - Vital Signs/Intake and Output Vital Signs (last 24 hours): Temp Pulse Resp BP Pulse Ox 96.1 F L 64 18 121/76 100 08/01/18 09:00 08/01/18 09:00 08/01/18 09:00 08/01/18 09:00 07/28/18 19:22 - Medications Medications: Current Medications Acetaminophen (Tylenol 325mg Tab) 650 mg PO Q4 PRN PRN Reason: pain level 4-7 Al Hydrox/Mg Hydrox/Simethicone (Maalox Plus 30 Ml) 30 ml PO Q4 PRN PRN Reason: Dyspepsia Aripiprazole (Abilify) 5 mg PO HS [facility] Aripiprazole (Abilify) 2 mg PO DAILY [facility] Cephalexin Monohydrate (Keflex) 500 mg PO QID [facility]; Protocol Last Admin: 08/01/18 13:51 Dose: 500 mg Diphenhydramine HCl (Benadryl) 50 mg IM Q6 PRN PRN Reason: Extrapyramidal S/S Unable PO Diphenhydramine HCl (Benadryl) 50 mg PO Q6 PRN PRN Reason: Extrapyramidal Symptoms Diphenhydramine HCl (Benadryl) 50 mg PO HS PRN PRN Reason: Sleep Last Admin: 07/31/18 23:32 Dose: 50 mg Gabapentin (Neurontin) 100 mg PO TID [facility] Last Admin: 08/01/18 13:52 Dose: 100 mg Haloperidol (Haldol) 5 mg PO Q4 PRN PRN Reason: Agitation Haloperidol Lactate (Haldol) 5 mg IM Q4 PRN PRN Reason: Agitation, Unable to Take PO Lorazepam (Ativan) 2 mg IM Q8H PRN PRN Reason: Anxiety/Agitation,Unable PO Lorazepam (Ativan) 1 mg PO Q8 PRN PRN Reason: Anxiety/Agitation Magnesium Hydroxide (Milk Of Magnesia) 30 ml PO HS PRN PRN Reason: Constipation Metformin HCl (Glucophage) 1,000 mg PO BID [facility] Last Admin: 08/01/18 09:48 Dose: 1,000 mg Naproxen (Naproxen) 500 mg PO BID [facility] Last Admin: 08/01/18 09:49 Dose: 500 mg Fluticasone/Salmeterol (Advair Diskus 100/50) 1 puff IH Q12 [facility] Last Admin: 08/01/18 09:50 Dose: 1 puff Sitagliptin Phosphate (Januvia) 50 mg PO DAILY [facility] Last Admin: 08/01/18 09:48 Dose: 50 mg Trazodone HCl (Desyrel) 50 mg PO HS [facility] Last Admin: 07/31/18 21:24 Dose: 50 mg - Labs Labs: 07/28/18 19:08 07/28/18 19:08 PT 14.6 Seconds (9.8-13.1) H 08/01/18 05:50 INR 1.3 08/01/18 05:50 - Constitutional Appears: Well, Non-toxic - Head Exam Head Exam: ATRAUMATIC - Extremities Exam Additional comments: Bilateral Lower Extremity Exam VASC: DP and PT 2/4 bilaterally, CFT less than 3 seconds X 10, no edema, positive erythema to the RLE NEURO: grossly intact DERM: superficial ulceration noted to the medial malleolus of the right leg, wit h previous incision and drainage site, erythema decreasing , no probe to bone, no tunneling, no malodor, another ulceration noted to the anterior leg about 3 cm X 3 cm with granular base, no erythema, no probe to bone, no tunneling, no malodor ORTHO: pain on palpation to the previous abscess, MSK 5/5 Assessment and Plan - Assessment and Plan (Free Text) Assessment: 53 y/o male consulted on for RLE cellulitis with right leg superficial abscess; drained on 07/31 Plan: Patient seen and evaluated Plan discussed with Dr. Villalba Chart, labs and vitals were reviewed Continue PO Abx Wound cultures: gram + cocci Right ankle xrays ordered Right leg MRI without contrast was ordered: read pending Podiatry will continue to follow patient while in house
[2018-08-02 06:53] LABS: INR 1.6; PROTHROMBIN TIME 18.6 Seconds (9.8-13.1)
[2018-08-02] MEDS: Naproxen 500 MG TAB PO SCH ×2 (09:24→18:02)
[2018-08-02] MEDS: Fluticasone-Salmeterol 100-50mcg Diskus IH SCH ×2 (09:26→21:05)
--- NOTE | 2018-08-02 11:21 | CP.PCM.PN ---
Subjective - Date & Time of Evaluation Date of Evaluation: 08/02/18 Time of Evaluation: 11:20 - Subjective Subjective: Podiatry progress note for Dr. Villalba, 53 y/o M with PMHx of DM, asthma and schizophrenia seen and evaluated for right lower extremity cellulitis. AAOx3, denies pain to the lower extremity. Patient denies any fever, chills, nausea, vomiting, diarrhea, constipation, dizziness, CP or SOB. Objective - Vital Signs/Intake and Output Vital Signs (last 24 hours): Temp Pulse Resp BP Pulse Ox 97.2 F L 71 18 108/76 100 08/02/18 09:00 08/02/18 09:00 08/02/18 09:00 08/02/18 09:00 07/28/18 19:22 - Medications Medications: Current Medications Acetaminophen (Tylenol 325mg Tab) 650 mg PO Q4 PRN PRN Reason: pain level 4-7 Al Hydrox/Mg Hydrox/Simethicone (Maalox Plus 30 Ml) 30 ml PO Q4 PRN PRN Reason: Dyspepsia Aripiprazole (Abilify) 5 mg PO HS [facility] Last Admin: 08/01/18 21:46 Dose: 5 mg Aripiprazole (Abilify) 2 mg PO DAILY [facility] Last Admin: 08/02/18 09:23 Dose: 2 mg Cephalexin Monohydrate (Keflex) 500 mg PO QID [facility]; Protocol Last Admin: 08/02/18 09:24 Dose: 500 mg Diphenhydramine HCl (Benadryl) 50 mg IM Q6 PRN PRN Reason: Extrapyramidal S/S Unable PO Diphenhydramine HCl (Benadryl) 50 mg PO Q6 PRN PRN Reason: Extrapyramidal Symptoms Diphenhydramine HCl (Benadryl) 50 mg PO HS PRN PRN Reason: Sleep Last Admin: 08/01/18 21:49 Dose: 50 mg Gabapentin (Neurontin) 100 mg PO TID [facility] Last Admin: 08/02/18 09:24 Dose: 100 mg Haloperidol (Haldol) 5 mg PO Q4 PRN PRN Reason: Agitation Haloperidol Lactate (Haldol) 5 mg IM Q4 PRN PRN Reason: Agitation, Unable to Take PO Lactic Acid (Lac-Hydrin 12% Lotion (225 G)) 1 applic TOP TID [facility] Lorazepam (Ativan) 2 mg IM Q8H PRN PRN Reason: Anxiety/Agitation,Unable PO Lorazepam (Ativan) 1 mg PO Q8 PRN PRN Reason: Anxiety/Agitation Magnesium Hydroxide (Milk Of Magnesia) 30 ml PO HS PRN PRN Reason: Constipation Metformin HCl (Glucophage) 1,000 mg PO BID [facility] Last Admin: 08/02/18 09:25 Dose: 1,000 mg Naproxen (Naproxen) 500 mg PO BID [facility] Last Admin: 08/02/18 09:24 Dose: 500 mg Fluticasone/Salmeterol (Advair Diskus 100/50) 1 puff IH Q12 [facility] Last Admin: 08/02/18 09:26 Dose: 1 puff Sitagliptin Phosphate (Januvia) 50 mg PO DAILY [facility] Last Admin: 08/02/18 09:24 Dose: 50 mg Trazodone HCl (Desyrel) 50 mg PO HS [facility] Last Admin: 08/01/18 21:46 Dose: 50 mg Warfarin Sodium (Coumadin) 10 mg PO QD5 [facility]; Protocol Stop: 08/02/18 17:01 - Labs Labs: 07/28/18 19:08 07/28/18 19:08 PT 18.6 Seconds (9.8-13.1) H 08/02/18 06:05 INR 1.6 08/02/18 06:05 - Constitutional Appears: Well, Non-toxic - Head Exam Head Exam: ATRAUMATIC, NORMOCEPHALIC - Eye Exam Eye Exam: Normal appearance - Extremities Exam Additional comments: Bilateral Lower Extremity Exam VASC: DP and PT 2/4 bilaterally, CFT less than 3 seconds X 10, no edema, positive erythema to the RLE NEURO: grossly intact DERM: superficial ulceration noted to the medial malleolus of the right leg, with previous incision and drainage site, erythema decreasing , no probe to bone, no tunneling, no malodor, another ulceration noted to the anterior leg about 3 cm X 3 cm with granular base, no erythema, no probe to bone, no tunneling, no malodor, no fluctuance noted. ORTHO: pain on palpation to the previous abscess, MSK 5/5 Assessment and Plan - Assessment and Plan (Free Text) Assessment: 53 y/o male consulted on for RLE cellulitis with right leg superficial abscess; drained on 07/31 Plan: Patient seen and evaluated Plan discussed with Dr. Villalba Chart, labs and vitals were reviewed Continue Abx; clindamycin Wound cultures: MRSA Right leg MRI without contrast was ordered: read pending Podiatry will continue to follow patient while in house
--- NOTE | 2018-08-02 13:03 | PCM.PYCHPN ---
Psychiatric Progress Note - Psychiatric Progress Note Patient seen today, length of contact: pt evaluated discussed with team chart reviewed Patient Chief Complaint: pt says that he cant sleep at night and still hears voices telling him that he is no good and nothing better for you . t feels that his body is dying in a nightmare and gets very scared .pt remains with poor insight and need further stabilization pt was seen by ID as he has been duagnosed with MRSA and will need I /v angibi otics.. Medication Change: Yes (increase zoloft gradually) Medical Record Reviewed: Yes Mental Status Examination - Cognitive Function Orientation: Person, Place Memory: Intact Attention: WNL Concentration: Poor Association: WNL Fund of Knowledge: Poor - Mood Mood: Depressed, Anxious - Affect Affect: Constricted, Depressed - Speech Speech: Soft - Formal Thought Process Formal Thought Process: Hallucinations, Circumstantial - Suicidal Ideation Suicidal Ideation: No - Homicidal Ideation Homicidal Ideation: No Goal/Treatment Plan - Goal/Treatment Plan Need for Continued Stay: Severe depression anxiety, Discharge may exacerbated symptoms Progress Toward Problem(s) and Goals/Treatment Plan: will increase abilify to 7 mg hs to address the depression and psychosis and engage pt in therapy and groups. D/ c plans as per dr fofana.
--- NOTE | 2018-08-02 13:42 | CP.PCM.CON ---
History of Present Illness - History of Present Illness History of Present Illness: 53 y/o M with PMHx of DM, asthma and schizophrenia admitted to hospital for for suicidal ideation and auditory hallucinations. Patient was also diagnosed with right lower extremity cellulitis which has been an ongoing problem for many months He states he was treated at [facility] for about a month on IV antibiotics in the recent past Reports having right LE chronic ulcer, questionable DVT for past 1 year and multiple episodes of right leg swelling and infection. Denies any fever, chills, nausea, vomiting, diarrhea, constipation, dizziness, CP or SOB. Pt takes Metformin and januvia for DM and ventolin PRN for asthma. Pt lives in [facility]. No additional medical complaints. PMD: None PMHx: DM, asthma, Schizophrenia, depression PSHx: Denies Allergies: Denies Hospitalization: Multiple previous admission at [facility] for foot infection and ulcer. Family Hx: Denies Social Hx: + cocaine use. + alcohol use. Review of Systems - Constitutional Constitutional: absent: Chills, Fever - EENT Eyes: absent: Change in Vision Nose/Mouth/Throat: absent: Epistaxis - Cardiovascular Cardiovascular: absent: Chest Pain, Dyspnea - Respiratory Respiratory: absent: Cough - Gastrointestinal Gastrointestinal: absent: Abdominal Pain, Constipation, Diarrhea, Nausea - Genitourinary Genitourinary: absent: Change in Urinary Stream, Dysuria - Musculoskeletal Musculoskeletal: absent: Back Pain, Neck Pain - Integumentary Integumentary: Erythema, Furuncle, Rash, Skin Ulcer, Swelling Past Patient History - Past Social History Smoking Status: Never Smoked - CARDIAC Hx Cardiac Disorders: No - PULMONARY Hx Respiratory Disorders: Yes (asthma) - NEUROLOGICAL Hx Neurological Disorder: No - HEENT Hx HEENT Problems: No - RENAL Hx Chronic Kidney Disease: No - ENDOCRINE/METABOLIC Hx Endocrine Disorders: Yes (diabetes mellitus type 2) - HEMATOLOGICAL/ONCOLOGICAL Hx Blood Disorders: No - INTEGUMENTARY Hx Dermatological Problems: Yes Hx Cellulitis: Yes (right leg) - MUSCULOSKELETAL/RHEUMATOLOGICAL Hx Musculoskeletal Disorders: No - GASTROINTESTINAL Hx Gastrointestinal Disorders: No - GENITOURINARY/GYNECOLOGICAL Hx Genitourinary Disorders: No - PSYCHIATRIC Hx Substance Use: Yes (crack cocaine) - SURGICAL HISTORY Hx Surgeries: No - ANESTHESIA Hx Anesthesia: No Meds Allergies/Adverse Reactions: Allergies Allergy/AdvReac Type Severity Reaction Status Date / Time No Known Allergies Allergy Verified 07/28/18 15:27 - Medications Medications: Current Medications Acetaminophen (Tylenol 325mg Tab) 650 mg PO Q4 PRN PRN Reason: pain level 4-7 Al Hydrox/Mg Hydrox/Simethicone (Maalox Plus 30 Ml) 30 ml PO Q4 PRN PRN Reason: Dyspepsia Aripiprazole (Abilify) 5 mg PO HS [facility] Last Admin: 08/01/18 21:46 Dose: 5 mg Aripiprazole (Abilify) 2 mg PO DAILY [facility] Last Admin: 08/02/18 09:23 Dose: 2 mg Clindamycin HCl (Cleocin) 300 mg PO Q8H [facility]; Protocol Diphenhydramine HCl (Benadryl) 50 mg IM Q6 PRN PRN Reason: Extrapyramidal S/S Unable PO Diphenhydramine HCl (Benadryl) 50 mg PO Q6 PRN PRN Reason: Extrapyramidal Symptoms Diphenhydramine HCl (Benadryl) 50 mg PO HS PRN PRN Reason: Sleep Last Admin: 08/01/18 21:49 Dose: 50 mg Gabapentin (Neurontin) 100 mg PO TID [facility] Last Admin: 08/02/18 09:24 Dose: 100 mg Haloperidol (Haldol) 5 mg PO Q4 PRN PRN Reason: Agitation Haloperidol Lactate (Haldol) 5 mg IM Q4 PRN PRN Reason: Agitation, Unable to Take PO Lactic Acid (Lac-Hydrin 12% Lotion (225 G)) 1 applic TOP TID [facility] Lorazepam (Ativan) 2 mg IM Q8H PRN PRN Reason: Anxiety/Agitation,Unable PO Lorazepam (Ativan) 1 mg PO Q8 PRN PRN Reason: Anxiety/Agitation Magnesium Hydroxide (Milk Of Magnesia) 30 ml PO HS PRN PRN Reason: Constipation Metformin HCl (Glucophage) 1,000 mg PO BID [facility] Last Admin: 08/02/18 09:25 Dose: 1,000 mg Naproxen (Naproxen) 500 mg PO BID [facility] Last Admin: 08/02/18 09:24 Dose: 500 mg Fluticasone/Salmeterol (Advair Diskus 100/50) 1 puff IH Q12 [facility] Last Admin: 08/02/18 09:26 Dose: 1 puff Sitagliptin Phosphate (Januvia) 50 mg PO DAILY [facility] Last Admin: 08/02/18 09:24 Dose: 50 mg Trazodone HCl (Desyrel) 100 mg PO HS [facility] Warfarin Sodium (Coumadin) 10 mg PO QD5 [facility]; Protocol Stop: 08/02/18 17:01 Physical Exam - Constitutional Appears: Non-toxic, Chronically Ill - Head Exam Head Exam: ATRAUMATIC, NORMAL INSPECTION, NORMOCEPHALIC - Eye Exam Eye Exam: PERRL. absent: Scleral icterus - ENT Exam ENT Exam: Mucous Membranes Dry, Normal External Ear Exam - Neck Exam Neck exam: Negative for: Lymphadenopathy - Respiratory Exam Respiratory Exam: Decreased Breath Sounds, Clear to Auscultation Bilateral - Cardiovascular Exam Cardiovascular Exam: REGULAR RHYTHM, +S1, +S2 - GI/Abdominal Exam GI & Abdominal Exam: Diminished Bowel Sounds, Soft. absent: Tenderness - Rectal Exam Rectal Exam: Deferred - Exam Exam: NORMAL INSPECTION - Extremities Exam Extremities exam: Positive for: normal capillary refill, pedal pulses present. Negative for: calf tenderness Additional comments: RLE with chronic skin changes above ankle - superiorly there is a small ulcer which is superficial and measures approx 0,5 cm inferiorly there is a small slightly elevated dark discolored area which is close to the ankle itself there is no pus no foul smell + redness - Back Exam Back exam: absent: CVA tenderness (L), paraspinal tenderness - Neurological Exam Neurological exam: Alert, CN II-XII Intact, Oriented x3, Reflexes Normal - Psychiatric Exam Psychiatric exam: Normal Mood - Skin Skin Exam: Dry Additional comments: as described Results - Vital Signs Recent Vital Signs: Last Vital Signs Temp 97.2 F L 08/02/18 09:00 Pulse 71 08/02/18 09:00 Resp 18 08/02/18 09:00 BP 108/76 08/02/18 09:00 Pulse Ox 100 07/28/18 19:22 - Labs Result Diagrams: 07/28/18 19:08 07/28/18 19:08 Labs: Laboratory Results - last 24 hr 08/01/18 08/01/18 08/02/18 16:48 20:31 06:05 PT 18.6 H INR 1.6 POC Glucose (mg/dL) 338 H 108 08/02/18 08/02/18 06:59 11:43 PT INR POC Glucose (mg/dL) 75 103 Assessment & Plan (1) Drug abuse Status: Acute (2) Cellulitis Status: Acute (3) Chronic deep vein thrombosis (DVT) Status: Acute (4) Schizophrenia Status: Acute (5) Depression Status: Acute (6) Diabetes Status: Acute (7) MRSA (methicillin resistant staph aureus) culture positive Status: Acute (8) MRSA (methicillin resistant staph aureus) culture positive Status: Acute - Assessment and Plan (Free Text) Assessment: cellulitis right leg/ ankle secondary to MRSA sensitive to Vanco/ Clinda Diabetes II hx of old DVT venous stasis dermatitis skin ulcer homelessness depression drug use disorder Await MRI findings treat with oral antibiotics and wound care unless deep seated infection present which would require placement for correction IV rx
--- NOTE | 2018-08-02 16:46 | CP.PCM.PN ---
<Talat Metztommie - Last Filed: 08/02/18 17:03> Subjective - Date & Time of Evaluation Date of Evaluation: 08/02/18 Time of Evaluation: 08:55 - Subjective Subjective: Patient seen and examined bedside. reports feeling better,reports his left leg ulcer is chronic for about 1 year and has been under podiatry care. denies fever, pain, no difficulty walking. wound cx MRSA sensitive to clinda.will start clinda PO Objective - Vital Signs/Intake and Output Vital Signs (last 24 hours): Temp Pulse Resp BP Pulse Ox 97.2 F L 71 18 108/76 100 08/02/18 09:00 08/02/18 09:00 08/02/18 09:00 08/02/18 09:00 07/28/18 19:22 - Medications Medications: Current Medications Acetaminophen (Tylenol 325mg Tab) 650 mg PO Q4 PRN PRN Reason: pain level 4-7 Al Hydrox/Mg Hydrox/Simethicone (Maalox Plus 30 Ml) 30 ml PO Q4 PRN PRN Reason: Dyspepsia Aripiprazole (Abilify) 5 mg PO HS [facility] Last Admin: 08/01/18 21:46 Dose: 5 mg Aripiprazole (Abilify) 2 mg PO DAILY [facility] Last Admin: 08/02/18 09:23 Dose: 2 mg Clindamycin HCl (Cleocin) 300 mg PO Q8H [facility]; Protocol Last Admin: 08/02/18 14:54 Dose: 300 mg Diphenhydramine HCl (Benadryl) 50 mg IM Q6 PRN PRN Reason: Extrapyramidal S/S Unable PO Diphenhydramine HCl (Benadryl) 50 mg PO Q6 PRN PRN Reason: Extrapyramidal Symptoms Diphenhydramine HCl (Benadryl) 50 mg PO HS PRN PRN Reason: Sleep Last Admin: 08/01/18 21:49 Dose: 50 mg Gabapentin (Neurontin) 100 mg PO TID [facility] Last Admin: 08/02/18 14:54 Dose: 100 mg Haloperidol (Haldol) 5 mg PO Q4 PRN PRN Reason: Agitation Haloperidol Lactate (Haldol) 5 mg IM Q4 PRN PRN Reason: Agitation, Unable to Take PO Lactic Acid (Lac-Hydrin 12% Lotion (225 G)) 1 applic TOP TID [facility] Last Admin: 08/02/18 14:55 Dose: 12 % Magnesium Hydroxide (Milk Of Magnesia) 30 ml PO HS PRN PRN Reason: Constipation Metformin HCl (Glucophage) 1,000 mg PO BID [facility] Last Admin: 08/02/18 09:25 Dose: 1,000 mg Naproxen (Naproxen) 500 mg PO BID [facility] Last Admin: 08/02/18 09:24 Dose: 500 mg Fluticasone/Salmeterol (Advair Diskus 100/50) 1 puff IH Q12 [facility] Last Admin: 08/02/18 09:26 Dose: 1 puff Sitagliptin Phosphate (Januvia) 50 mg PO DAILY [facility] Last Admin: 08/02/18 09:24 Dose: 50 mg Trazodone HCl (Desyrel) 100 mg PO HS [facility] Warfarin Sodium (Coumadin) 10 mg PO QD5 [facility]; Protocol Stop: 08/02/18 17:01 - Labs Labs: 07/28/18 19:08 07/28/18 19:08 PT 18.6 Seconds (9.8-13.1) H 08/02/18 06:05 INR 1.6 08/02/18 06:05 - Constitutional Appears: No Acute Distress - Respiratory Exam Respiratory Exam: Clear to Ausculation Bilateral. absent: Rales, Rhonchi, Wheezes - Cardiovascular Exam Cardiovascular Exam: REGULAR RHYTHM, +S1, +S2 - GI/Abdominal Exam GI & Abdominal Exam: Soft, Normal Bowel Sounds. absent: Tenderness - Extremities Exam Extremities Exam: absent: Calf Tenderness Additional comments: Right leg chronic ulcer. dressing C/D/I, - Neurological Exam Neurological Exam: Alert, Awake Assessment and Plan - Assessment and Plan (Free Text) Plan: 53 y/o M with Hx of schizophrenia, depression, DM and asthma admitted to hospital for suicidal ideation, auditory hallucinations. Patient also has Right lower extremity, right upper back and neck cellulitis. Plan: Auditory hallucinations/ sleep distrubance - Manage as per psych Cellulitis -with chronic ulcer wound cx MRSA sensitive to clinda -start clinda PO 300 mg Q8h -f/u MRI ext -ID consult appreciated: if osteo to consider IV abx DM - Continue home medications Metformin and januvia - Glucose 89 today - F/U A1c Asthma - Controlled with advair 1 puff BID - Continue home meds. Chronic DVT - on Warfarin 10 mg PO sierra - F/U INR <Joanne Munoz - Last Filed: 08/03/18 09:24> Objective - Vital Signs/Intake and Output Vital Signs (last 24 hours): Temp Pulse Resp BP Pulse Ox 97.5 F L 63 19 97/63 L 100 08/03/18 09:21 08/03/18 09:21 08/03/18 09:21 08/03/18 09:21 07/28/18 19:22 - Medications Medications: Current Medications Acetaminophen (Tylenol 325mg Tab) 650 mg PO Q4 PRN PRN Reason: pain level 4-7 Al Hydrox/Mg Hydrox/Simethicone (Maalox Plus 30 Ml) 30 ml PO Q4 PRN PRN Reason: Dyspepsia Aripiprazole (Abilify) 5 mg PO HS [facility] Last Admin: 08/02/18 21:05 Dose: 5 mg Aripiprazole (Abilify) 2 mg PO DAILY [facility] Last Admin: 08/03/18 09:03 Dose: 2 mg Clindamycin HCl (Cleocin) 300 mg PO Q8H [facility]; Protocol Last Admin: 08/03/18 06:12 Dose: 300 mg Diphenhydramine HCl (Benadryl) 50 mg IM Q6 PRN PRN Reason: Extrapyramidal S/S Unable PO Diphenhydramine HCl (Benadryl) 50 mg PO Q6 PRN PRN Reason: Extrapyramidal Symptoms Diphenhydramine HCl (Benadryl) 50 mg PO HS PRN PRN Reason: Sleep Last Admin: 08/02/18 23:30 Dose: 50 mg Gabapentin (Neurontin) 100 mg PO TID [facility] Last Admin: 08/03/18 09:03 Dose: 100 mg Haloperidol (Haldol) 5 mg PO Q4 PRN PRN Reason: Agitation Haloperidol Lactate (Haldol) 5 mg IM Q4 PRN PRN Reason: Agitation, Unable to Take PO Lactic Acid (Lac-Hydrin 12% Lotion (225 G)) 1 applic TOP TID [facility] Last Admin: 08/03/18 09:05 Dose: 1 applic Magnesium Hydroxide (Milk Of Magnesia) 30 ml PO HS PRN PRN Reason: Constipation Metformin HCl (Glucophage) 1,000 mg PO BID [facility] Last Admin: 08/03/18 09:03 Dose: 1,000 mg Naproxen (Naproxen) 500 mg PO BID [facility] Last Admin: 08/03/18 09:02 Dose: 500 mg Fluticasone/Salmeterol (Advair Diskus 100/50) 1 puff IH Q12 [facility] Last Admin: 08/03/18 09:01 Dose: 1 puff Sitagliptin Phosphate (Januvia) 50 mg PO DAILY [facility] Last Admin: 08/03/18 09:03 Dose: 50 mg Trazodone HCl (Desyrel) 100 mg PO HS [facility] Last Admin: 08/02/18 21:06 Dose: 100 mg - Labs Labs: 07/28/18 19:08 07/28/18 19:08 PT 23.5 Seconds (9.8-13.1) H 08/03/18 07:56 INR 2.1 08/03/18 07:56 APTT 50.0 Seconds (25.6-37.1) H 08/03/18 07:56 Attending/Attestation - Attestation I have personally seen and examined this patient.: Yes I have fully participated in the care of the patient.: Yes I have reviewed all pertinent clinical information, including history, physical exam and plan: Yes Notes (Text): 08/03/18 09:24 agree with findings and plan as above
[2018-08-03 08:08] LABS: INR 2.1; PROTHROMBIN TIME 23.5 Seconds (9.8-13.1)
[2018-08-03] MEDS: Fluticasone-Salmeterol 100-50mcg Diskus IH SCH ×2 (09:01→21:21)
[2018-08-03] MEDS: Naproxen 500 MG TAB PO SCH ×2 (09:02→17:42)
--- NOTE | 2018-08-03 11:31 | MRI ---
Date of service: 07/31/2018 PROCEDURE: RIGHT TIBIA FIBULA MRI WITHOUT CONTRAST HISTORY: r/o abscess at medial malleolus COMPARISON: NONE AVAILABLE. TECHNIQUE: An MR examination right tibia and fibula has been performed using multiplanar multisequential technique without intravenous gadolinium administered, as requested. FINDINGS: No fracture or bone contusion is identified. There is no edema throughout the marrow and therefore no evidence to indicate osteomyelitis in either the right tibia or fibula, including the medial malleolus. Overall Marrow signal intensity appears within normal limits and no gross cortical changes are identified. Overlying the medial malleolus is prominent subcutaneous edema extending up to the level of the lower calf region medially with some edema extending anteriorly and posteriorly at the level of the right ankle. No definitive fluid collection is identified that would suggest an abscess. However, serpiginous signal loss is appreciated within subcutaneous edema suggestive of either varices or prominent blood flow within veins otherwise. Local musculature in the anterior and posterior leg compartments appear within normal limits in overall signal with no definitive myositis pattern appreciable. IMPRESSION: Findings most compatible with medial right lower leg cellulitis without definite abscess or osteomyelitis pattern appreciable at this time. Further clinical correlation is recommended. Concordant preliminary report from ANNETTERad, 07/31/2018, 8:55 p.m..
--- NOTE | 2018-08-03 13:44 | PCM.PYCHPN ---
Psychiatric Progress Note - Psychiatric Progress Note Patient seen today, length of contact: pt evaluated discussed with team chart reviewed Patient Chief Complaint: I still have a lot of pain Problems Identified/Issues Discussed: pt evaluated , prsenting with anxious mood, related that to increased pain requesting tramadol,discussed with patient possible habit forming nature and discussed increasing dose of neurontin, pt reported partial clearing of auditory hallucinations discussed increasing abilify pt denied command hallucinations, denied active thoughts of self harm on the unit Medical Problems: no previous psychiatric hospitalizations DSM 5 Symptoms Update: 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 Medication Change: Yes (increase abilify) Medical Record Reviewed: Yes Mental Status Examination - Cognitive Function Orientation: Person, Place Memory: Intact Attention: WNL Concentration: WNL Association: WNL Fund of Knowledge: Poor Decription of patient's judgement and insights: partial insight poor judgment - Mood Mood: Depressed, Anxious - Affect Affect: Constricted, Depressed - Speech Speech: Soft - Formal Thought Process Formal Thought Process: Hallucinations, Circumstantial - Suicidal Ideation Suicidal Ideation: No - Homicidal Ideation Homicidal Ideation: No Goal/Treatment Plan - Goal/Treatment Plan Need for Continued Stay: Severe depression anxiety, Discharge may exacerbated symptoms Progress Toward Problem(s) and Goals/Treatment Plan: increase neurontin 200mg tid increase abilify 5mg bid motivational group and supportive therapy
--- NOTE | 2018-08-03 15:50 | CP.PCM.PN ---
<Rosemary Metz - Last Filed: 08/03/18 17:23> Subjective - Date & Time of Evaluation Date of Evaluation: 08/03/18 Time of Evaluation: 08:20 - Subjective Subjective: Patient seen and examined bedside Pt c/w moderate to severe purulent cellulitis right leg. Pt not improving with PO Abx PT may require 7 d of IV Abx. will benefit form close monitoring wound care and PT. Patient will be discharge to [facility]. Objective - Vital Signs/Intake and Output Vital Signs (last 24 hours): Temp Pulse Resp BP Pulse Ox 97.5 F L 63 19 97/63 L 100 08/03/18 09:21 08/03/18 09:21 08/03/18 09:21 08/03/18 09:21 08/03/18 10:10 - Medications Medications: Current Medications Acetaminophen (Tylenol 325mg Tab) 650 mg PO Q4 PRN PRN Reason: pain level 4-7 Al Hydrox/Mg Hydrox/Simethicone (Maalox Plus 30 Ml) 30 ml PO Q4 PRN PRN Reason: Dyspepsia Aripiprazole (Abilify) 5 mg PO HS [facility] Last Admin: 08/02/18 21:05 Dose: 5 mg Aripiprazole (Abilify) 5 mg PO DAILY [facility] Clindamycin HCl (Cleocin) 300 mg PO Q8H [facility]; Protocol Last Admin: 08/03/18 12:59 Dose: 300 mg Diphenhydramine HCl (Benadryl) 50 mg IM Q6 PRN PRN Reason: Extrapyramidal S/S Unable PO Diphenhydramine HCl (Benadryl) 50 mg PO Q6 PRN PRN Reason: Extrapyramidal Symptoms Diphenhydramine HCl (Benadryl) 50 mg PO HS PRN PRN Reason: Sleep Last Admin: 08/02/18 23:30 Dose: 50 mg Gabapentin (Neurontin) 200 mg PO TID [facility] Haloperidol (Haldol) 5 mg PO Q4 PRN PRN Reason: Agitation Haloperidol Lactate (Haldol) 5 mg IM Q4 PRN PRN Reason: Agitation, Unable to Take PO Lactic Acid (Lac-Hydrin 12% Lotion (225 G)) 1 applic TOP TID [facility] Last Admin: 08/03/18 13:00 Dose: Not Given Magnesium Hydroxide (Milk Of Magnesia) 30 ml PO HS PRN PRN Reason: Constipation Metformin HCl (Glucophage) 1,000 mg PO BID [facility] Last Admin: 08/03/18 09:03 Dose: 1,000 mg Naproxen (Naproxen) 500 mg PO BID [facility] Last Admin: 08/03/18 09:02 Dose: 500 mg Fluticasone/Salmeterol (Advair Diskus 100/50) 1 puff IH Q12 [facility] Last Admin: 08/03/18 09:01 Dose: 1 puff Sertraline HCl (Zoloft) 50 mg PO DAILY [facility] Sitagliptin Phosphate (Januvia) 50 mg PO DAILY [facility] Last Admin: 08/03/18 09:03 Dose: 50 mg Trazodone HCl (Desyrel) 200 mg PO HS [facility] - Labs Labs: 07/28/18 19:08 07/28/18 19:08 PT 23.5 Seconds (9.8-13.1) H 08/03/18 07:56 INR 2.1 08/03/18 07:56 APTT 50.0 Seconds (25.6-37.1) H 08/03/18 07:56 - Constitutional Appears: No Acute Distress - Respiratory Exam Respiratory Exam: Clear to Ausculation Bilateral. absent: Rales, Rhonchi, Wheezes - Cardiovascular Exam Cardiovascular Exam: REGULAR RHYTHM, +S1, +S2 - GI/Abdominal Exam GI & Abdominal Exam: Normal Bowel Sounds. absent: Tenderness - Extremities Exam Additional comments: Right leg chronic ulcer. dressing C/D/I, - Neurological Exam Neurological Exam: Alert, Awake - Psychiatric Exam Psychiatric exam: Normal Affect - Additional Findings Additional findings: Right leg chronic ulcer. dressing C/D/I, Assessment and Plan - Assessment and Plan (Free Text) Plan: 53 y/o M with Hx of schizophrenia, depression, DM and asthma admitted to hospital for suicidal ideation, auditory hallucinations. Patient also has Right lower extremity, right upper back and neck cellulitis. Plan: Auditory hallucinations/ sleep distrubance - Manage as per psych Cellulitis -with chronic ulcer wound cx MRSA sensitive to clinda -will stop Po abx and start on CLinda IV PO 300 mg Q8h -f/u MRI ext -ID consult appreciated: if osteo to consider IV abx DM - Continue home medications Metformin and januvia - Glucose 89 today - F/U A1c Asthma - Controlled with advair 1 puff BID - Continue home meds. Chronic DVT - on Warfarin 10 mg PO dailly - F/U INR <Joanne Munoz - Last Filed: 08/04/18 10:42> Objective - Vital Signs/Intake and Output Vital Signs (last 24 hours): Temp Pulse Resp BP Pulse Ox 97.5 F L 68 17 110/70 100 08/04/18 09:19 08/04/18 09:19 08/04/18 09:19 08/04/18 09:19 08/03/18 10:10 - Medications Medications: Current Medications Acetaminophen (Tylenol 325mg Tab) 650 mg PO Q4 PRN PRN Reason: pain level 4-7 Al Hydrox/Mg Hydrox/Simethicone (Maalox Plus 30 Ml) 30 ml PO Q4 PRN PRN Reason: Dyspepsia Aripiprazole (Abilify) 5 mg PO HS [facility] Last Admin: 08/03/18 21:22 Dose: 5 mg Aripiprazole (Abilify) 5 mg PO DAILY [facility] Last Admin: 08/04/18 08:54 Dose: 5 mg Clindamycin HCl (Cleocin) 300 mg PO Q8H [facility]; Protocol Last Admin: 08/04/18 06:16 Dose: 300 mg Diphenhydramine HCl (Benadryl) 50 mg IM Q6 PRN PRN Reason: Extrapyramidal S/S Unable PO Diphenhydramine HCl (Benadryl) 50 mg PO Q6 PRN PRN Reason: Extrapyramidal Symptoms Diphenhydramine HCl (Benadryl) 50 mg PO HS PRN PRN Reason: Sleep Last Admin: 08/02/18 23:30 Dose: 50 mg Gabapentin (Neurontin) 200 mg PO TID [facility] Last Admin: 08/04/18 08:53 Dose: 200 mg Haloperidol (Haldol) 5 mg PO Q4 PRN PRN Reason: Agitation Haloperidol Lactate (Haldol) 5 mg IM Q4 PRN PRN Reason: Agitation, Unable to Take PO Lactic Acid (Lac-Hydrin 12% Lotion (225 G)) 1 applic TOP TID [facility] Last Admin: 08/04/18 09:46 Dose: Not Given Magnesium Hydroxide (Milk Of Magnesia) 30 ml PO HS PRN PRN Reason: Constipation Metformin HCl (Glucophage) 1,000 mg PO BID [facility] Last Admin: 08/04/18 08:53 Dose: 1,000 mg Naproxen (Naproxen) 500 mg PO BID [facility] Last Admin: 08/04/18 08:53 Dose: 500 mg Fluticasone/Salmeterol (Advair Diskus 100/50) 1 puff IH Q12 [facility] Last Admin: 08/04/18 08:53 Dose: 1 puff Sertraline HCl (Zoloft) 50 mg PO DAILY [facility] Last Admin: 08/04/18 08:54 Dose: 50 mg Sitagliptin Phosphate (Januvia) 50 mg PO DAILY [facility] Last Admin: 08/04/18 08:54 Dose: 50 mg Trazodone HCl (Desyrel) 200 mg PO HS [facility] Last Admin: 08/03/18 21:23 Dose: 200 mg - Labs Labs: 07/28/18 19:08 07/28/18 19:08 PT 23.5 Seconds (9.8-13.1) H 08/03/18 07:56 INR 2.1 08/03/18 07:56 APTT 50.0 Seconds (25.6-37.1) H 08/03/18 07:56 Attending/Attestation - Attestation I have personally seen and examined this patient.: Yes I have fully participated in the care of the patient.: Yes I have reviewed all pertinent clinical information, including history, physical exam and plan: Yes Notes (Text): 08/04/18 10:42 agree with findings and plan as above
--- NOTE | 2018-08-03 16:27 | CP.PCM.HP ---
Past Patient History - Past Social History Smoking Status: Never Smoked - CARDIAC Hx Cardiac Disorders: No - PULMONARY Hx Respiratory Disorders: Yes (asthma) - NEUROLOGICAL Hx Neurological Disorder: No - HEENT Hx HEENT Problems: No - RENAL Hx Chronic Kidney Disease: No - ENDOCRINE/METABOLIC Hx Endocrine Disorders: Yes (diabetes mellitus type 2) - HEMATOLOGICAL/ONCOLOGICAL Hx Blood Disorders: No - INTEGUMENTARY Hx Dermatological Problems: Yes Hx Cellulitis: Yes (right leg) - MUSCULOSKELETAL/RHEUMATOLOGICAL Hx Musculoskeletal Disorders: No - GASTROINTESTINAL Hx Gastrointestinal Disorders: No - GENITOURINARY/GYNECOLOGICAL Hx Genitourinary Disorders: No - PSYCHIATRIC Hx Substance Use: Yes (crack cocaine) - SURGICAL HISTORY Hx Surgeries: No - ANESTHESIA Hx Anesthesia: No Meds Allergies/Adverse Reactions: Allergies Allergy/AdvReac Type Severity Reaction Status Date / Time No Known Allergies Allergy Verified 07/28/18 15:27 Results - Vital Signs Recent Vital Signs: Last Vital Signs Temp 97.5 F L 08/03/18 09:21 Pulse 63 08/03/18 09:21 Resp 19 08/03/18 09:21 BP 97/63 L 08/03/18 09:21 Pulse Ox 100 08/03/18 10:10 - Labs Result Diagrams: 07/28/18 19:08 07/28/18 19:08 Labs: Laboratory Results - last 24 hr 08/02/18 08/02/18 08/03/18 16:33 20:17 06:38 PT INR APTT POC Glucose (mg/dL) 141 H 103 95 08/03/18 08/03/18 07:56 12:24 PT 23.5 H INR 2.1 APTT 50.0 H POC Glucose (mg/dL) 66
[2018-08-04] MEDS: Fluticasone-Salmeterol 100-50mcg Diskus IH SCH (08:53)
[2018-08-04] MEDS: Naproxen 500 MG TAB PO SCH (08:53)
--- NOTE | 2018-08-04 09:17 | CP.PCM.PN ---
Subjective - Date & Time of Evaluation Date of Evaluation: 08/04/18 Time of Evaluation: 09:15 - Subjective Subjective: Podiatry progress note for Dr. Villalba, 53 y/o M with PMHx of DM, asthma and schizophrenia seen and evaluated for right lower extremity cellulitis in the psych unit. Patient is AAOx3 and states he removed the dressing to his foot. Patient also seen to be ambulating barefoot in the hallway prior to evaluation. Patient denies any fever, chills, nausea, vomiting, diarrhea, constipation, dizziness, CP or SOB. Objective - Vital Signs/Intake and Output Vital Signs (last 24 hours): Temp Pulse Resp BP Pulse Ox 97.9 F 72 18 131/92 H 100 08/03/18 17:00 08/03/18 17:00 08/03/18 17:00 08/03/18 17:00 08/03/18 10:10 - Medications Medications: Current Medications Acetaminophen (Tylenol 325mg Tab) 650 mg PO Q4 PRN PRN Reason: pain level 4-7 Al Hydrox/Mg Hydrox/Simethicone (Maalox Plus 30 Ml) 30 ml PO Q4 PRN PRN Reason: Dyspepsia Aripiprazole (Abilify) 5 mg PO HS [facility] Last Admin: 08/03/18 21:22 Dose: 5 mg Aripiprazole (Abilify) 5 mg PO DAILY [facility] Last Admin: 08/04/18 08:54 Dose: 5 mg Clindamycin HCl (Cleocin) 300 mg PO Q8H [facility]; Protocol Last Admin: 08/04/18 06:16 Dose: 300 mg Diphenhydramine HCl (Benadryl) 50 mg IM Q6 PRN PRN Reason: Extrapyramidal S/S Unable PO Diphenhydramine HCl (Benadryl) 50 mg PO Q6 PRN PRN Reason: Extrapyramidal Symptoms Diphenhydramine HCl (Benadryl) 50 mg PO HS PRN PRN Reason: Sleep Last Admin: 08/02/18 23:30 Dose: 50 mg Gabapentin (Neurontin) 200 mg PO TID [facility] Last Admin: 08/04/18 08:53 Dose: 200 mg Haloperidol (Haldol) 5 mg PO Q4 PRN PRN Reason: Agitation Haloperidol Lactate (Haldol) 5 mg IM Q4 PRN PRN Reason: Agitation, Unable to Take PO Lactic Acid (Lac-Hydrin 12% Lotion (225 G)) 1 applic TOP TID [facility] Last Admin: 08/03/18 17:43 Dose: 1 applic Magnesium Hydroxide (Milk Of Magnesia) 30 ml PO HS PRN PRN Reason: Constipation Metformin HCl (Glucophage) 1,000 mg PO BID [facility] Last Admin: 08/04/18 08:53 Dose: 1,000 mg Naproxen (Naproxen) 500 mg PO BID [facility] Last Admin: 08/04/18 08:53 Dose: 500 mg Fluticasone/Salmeterol (Advair Diskus 100/50) 1 puff IH Q12 [facility] Last Admin: 08/04/18 08:53 Dose: 1 puff Sertraline HCl (Zoloft) 50 mg PO DAILY [facility] Last Admin: 08/04/18 08:54 Dose: 50 mg Sitagliptin Phosphate (Januvia) 50 mg PO DAILY [facility] Last Admin: 08/04/18 08:54 Dose: 50 mg Trazodone HCl (Desyrel) 200 mg PO HS [facility] Last Admin: 08/03/18 21:23 Dose: 200 mg - Labs Labs: 07/28/18 19:08 07/28/18 19:08 PT 23.5 Seconds (9.8-13.1) H 08/03/18 07:56 INR 2.1 08/03/18 07:56 APTT 50.0 Seconds (25.6-37.1) H 08/03/18 07:56 - Constitutional Appears: Well, Non-toxic, No Acute Distress - Head Exam Head Exam: ATRAUMATIC, NORMOCEPHALIC - Extremities Exam Additional comments: Bilateral Lower Extremity Exam VASC: DP and PT 2/4 bilaterally, CFT less than 3 seconds X 10, no edema, positive erythema to the RLE NEURO: grossly intact DERM: superficial scab noted to the medial malleolus of the right leg with some fluctuance, erythema decreasing, no probe to bone, no tunneling, no malodor, another ulceration noted to the anterior leg about 3 cm X 3 cm with granular base, no erythema, no probe to bone, no tunneling, no malodor, no fluctuance noted. ORTHO: pain on palpation to the previous abscess, MSK 5/5 - Neurological Exam Neurological Exam: Alert, Awake, Oriented x3 - Psychiatric Exam Psychiatric exam: Normal Affect, Normal Mood Assessment and Plan - Assessment and Plan (Free Text) Assessment: 53 y/o male consulted on for RLE cellulitis with right leg superficial abscess; drained on 07/31/18 Plan: Patient seen and evaluated Plan discussed with Dr. Villalba Chart, labs and vitals were reviewed ID consulted, recommendations were appreciated Continue Abx: clindamycin Wound cultures: MRSA Right leg MRI without contrast was ordered: no abscess noted No abscess noted on MRI, however some fluctuance noted to the original incision and drainage site today Sterile #10 blade was utilized to remove the scab, and sanguinous drainage was expressed, no purulence noted Site was dressed with betadine, gauze, ABD, emily as per permission from staff in the unit Patient could benefit from IV Abx at this time Podiatry will continue to follow patient while in house
[2018-08-04 09:20] VITALS: BP 110/70; PULSE 68; RESP 17; TEMP 97.5
--- NOTE | 2018-08-04 13:48 | PCM.PYCHDC ---
Mental Status Examination - Mental Status Examination Orientation: Person, Place, Situation Memory: Intact Mood: Neutral Affect: Broad Speech: Appropriate Attention: WNL Concentration: WNL Association: WNL Fund of Knowledge: WNL Formal Thought Process: Circumstantial Description of patient's judgement and insight: partial insight poor judgment Psychotic Thoughts and Behaviors: pt denied current perceptual disturbances , non elicited Suicidal Ideation: No Current Homicidal Ideation?: No Discharge Summary - Discharge Note Reason for Hospitalization: pt is 53 ys old male curently not in formal psychiatric treatment, previously diagnosed with schizophrenia/ depression, presented to ER with depressed mood and suicidal ideation pt has been increasingly depressed in the context of medical problems/DVT financial problems and being homeless living in a fdc, pt reported for last few weeks, he has been experiencing poor sleep, decreased appetite feeling hopeless and helpless, self medicating with cocaine and started experiencing auditroy hallucinations telling him to hurt himself on the unit patient continues to be depressed, reporting passive suicidal ideation without active plan on the unit , reporting non command auditory hallucinations putting him down Laboratory Data: Abnormal Lab Results 08/03/18 08/03/18 08/04/18 17:02 20:24 05:53 POC Glucose (mg/dL) 108 92 99 08/04/18 11:49 POC Glucose (mg/dL) 118 H Consultations:: List each consultation separately and include: 1. Reason for request. 2. Findings. 3. Follow-up Summary of Hospital Course include:: 1. Description of specific treatment plan utilized for patients during their course of treatmen. 2. Summarize the time- course for resolution of acute symptoms and/or regressed behaviors. 3. Describe issues identified and worked on during hospitalization. 4. Describe medication utilized. 5. Describe medical problems identified and treated. 6. Reassessment of suicide risk Summary of Hospital Course: pt on admission presented with depressed mood and affect, early insomnia and auditory hallucinations pt was placed on abilify neuroontin and trazodone motivational therapy was provided in reference to cocaine use podiatry consult requested for DVT with open wound, wound culture done and pt required transfer to medicine for antibiotic treatment on discharge pt mental status was stable, denied any current suicidal or homicidal ideation, denied perceptual disturbances, psychiatrically cleared for discharge upon medical clearance after wound treatment follow up arranged by social professionals at [facility] - Diagnosis (1) Depression Current Visit: Yes Status: Acute (2) Cocaine use disorder Current Visit: Yes Status: Acute - Final Diagnosis (DSM 5) Condition upon Discharge: STABLE DSM 5: major depression 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
== END 2018-08-04 14:15 | disposition short-term general hospital (02) | DRG 430 ==
LOC: H.ER 15:12 → H.ERHOLD 20:09 → H.PSYCH 07-29 00:17
PROVIDERS: ADMIT Psychiatry & Neurology Psychiatry; ATTEND Psychiatry & Neurology Psychiatry
PROC: GZHZZZZ Group Psychotherapy (ICD-10-PCS; principal; 2018-07-31)
PROC: GZ56ZZZ Individual Psychotherapy, Supportive (ICD-10-PCS; 2018-07-31)
PROC: HZ57ZZZ Individual Psychotherapy for Substance Abuse Treatment, Motivational Enhancement (ICD-10-PCS; 2018-07-31)
PROC: 0H9KXZZ Drainage of Right Lower Leg Skin, External Approach (ICD-10-PCS; 2018-07-31)
DX: F33.9 Major depressive disorder, recurrent, unspecified (principal); L03.115 Cellulitis of right lower limb; I82.501 Chronic embolism and thrombosis of unspecified deep veins of right lower extremity; L97.919 Non-pressure chronic ulcer of unspecified part of right lower leg with unspecified severity; L02.415 Cutaneous abscess of right lower limb; Z59.0 Homelessness; R45.851 Suicidal ideations; Z91.14 Patient's other noncompliance with medication regimen; E11.9 Type 2 diabetes mellitus without complications; J45.909 Unspecified asthma, uncomplicated; B95.62 Methicillin resistant Staphylococcus aureus infection as the cause of diseases classified elsewhere; F14.151 Cocaine abuse with cocaine-induced psychotic disorder with hallucinations; G47.00 Insomnia, unspecified

== ENCOUNTER 2018-08-04 14:24 | Inpatient (IN) | payer OTHER ==
[2018-08-04 14:34] VITALS: BMI 23.8
[2018-08-04] MEDS ORDERED: Clindamycin 600mg/50ml D5W 600 MG/50 ML VIAL IVPB STA (14:41)
--- NOTE | 2018-08-04 14:41 | ED PDOC ---
Lower Extremity Pain/Injury Time Seen by Provider: 08/04/18 14:32 Chief Complaint (Nursing): Lower Extremity Problem/Injury Chief Complaint (Provider): lower extremity infection History Per: Patient History/Exam Limitations: no limitations Onset/Duration Of Symptoms: Days (days) Additional Complaint(s): Pt. with leg infection on the right. Was admitted to psych for suicidal thoughts. Sent to the ER for further antibiotics. Also on clinda for infection and coumadin for dvt that has been ongoing for 1 year. No dyspnea, weakness, headaches, dizziness. No chest pain. Past Medical History Reviewed: Nursing Documentation, Vital Signs Vital Signs: Last Vital Signs Temp 97.6 F 08/04/18 14:32 Pulse 69 08/04/18 14:32 Resp 20 08/04/18 14:32 BP 126/86 08/04/18 14:32 Pulse Ox 98 08/04/18 14:32 - Medical History PMH: Anxiety, Asthma, Depression, Schizophrenia Denies: Chronic Kidney Disease - Family History Family History: States: Unknown Family Hx - Home Medications Home Medications: Ambulatory Orders Medication Instructions Recorded Fluticasone/Salmeterol 1 each IH DAILY 07/28/18 [Fluticasone-Salmeterol 113-14] MetFORMIN [glucoPHAGE] 1,000 mg PO BID 07/28/18 Naproxen [Naprosyn] 500 mg PO Q12 07/28/18 SITagliptin [Januvia] 50 mg PO DAILY 07/28/18 ARIPiprazole [Abilify] 5 mg PO DAILY #0 tab 08/04/18 ARIPiprazole [Abilify] 5 mg PO HS #0 tab 08/04/18 Acetaminophen [Tylenol 325mg tab] 650 mg PO Q4 PRN tab 08/04/18 Aluminum Hydroxide/Magnesium 30 ml PO Q4 PRN udc 08/04/18 [Maalox Plus 30 ml] Ammonium Lactate 12% [Lac-Hydrin 1 applic TOP TID bottle 08/04/18 12% Lotion (225 g)] Clindamycin [Cleocin] 300 mg PO Q8H cap 08/04/18 DiphenhydrAMINE [Benadryl] 50 mg PO HS PRN cap 08/04/18 DiphenhydrAMINE [Benadryl] 50 mg PO Q6 PRN cap 08/04/18 Gabapentin [Neurontin] 200 mg PO TID cap 08/04/18 Haloperidol [Haldol] 5 mg PO Q4 PRN tab 08/04/18 Magnesium Hydroxide [Milk Of 30 ml PO HS PRN udc 08/04/18 Magnesia] Sertraline [Zoloft] 50 mg PO DAILY tab 08/04/18 Warfarin [Coumadin] 10 mg PO DAILY 08/04/18 traZODone [Desyrel] 200 mg PO HS tab 08/04/18 - Allergies Allergies/Adverse Reactions: Allergies Allergy/AdvReac Type Severity Reaction Status Date / Time No Known Allergies Allergy Verified 08/04/18 14:32 Review of Systems ROS Statement: Except As Marked, All Systems Reviewed And Found Negative Musculoskeletal: Positive for: Leg Pain Skin: Positive for: Rash Physical Exam - Reviewed Nursing Documentation Reviewed: Yes Vital Signs Reviewed: Yes - Physical Exam Appears: Positive for: Non-toxic, No Acute Distress Head Exam: Positive for: ATRAUMATIC, NORMAL INSPECTION, NORMOCEPHALIC Skin: Positive for: Rash Eye Exam: Positive for: EOMI, Normal appearance, PERRL ENT: Positive for: Normal ENT Inspection Neck: Positive for: Normal, Painless ROM Cardiovascular/Chest: Positive for: Regular Rate, Rhythm Respiratory: Positive for: CNT, Normal Breath Sounds Pulses-Dorsalis Pedis (L): 2+ Pulses-Dorsalis Pedis (R): 2+ Gastrointestinal/Abdominal: Positive for: Normal Exam, Soft. Negative for: Tenderness Back: Positive for: Normal Inspection. Negative for: L CVA Tenderness, R CVA Tenderness Extremity: Positive for: Normal ROM, Tenderness (superficial scab noted to the medial malleolus of the right leg with some fluctuance, erythema; opened and draining; another ulceration noted to the anterior leg about 3 cm X 3 cm with granular base, no erythema ). Negative for: Calf Tenderness Neurologic/Psych: Positive for: Alert, Oriented - ECG O2 Sat by Pulse Oximetry: 98 - Progress ED Course And Treament: 1437: Pt. foot cx results show sensitive to clinda. Will give accordingly. 1544: Spoke with Dr. Munoz. Will admit med surg. Pt. well known to her service. Disposition - Clinical Impression Clinical Impression: Cellulitis, Chronic deep vein thrombosis (DVT) - Patient ED Disposition Is Patient to be Admitted: Yes Counseled Patient/Family Regarding: Studies Performed, Diagnosis - Disposition Disposition Time: 14:45 Condition: FAIR Forms: [employer] (Kazakh) - POA Present On Arrival: Deep Vein Thrombosis / PE
[2018-08-04] MEDS ORDERED: Sodium Chloride 0.9% 1,000 ML IV STA (14:42)
[2018-08-04 15:25] LABS: VENOUS BLOOD GAS BASE EXCESS 2.1 mmol/L (0.0-2.0); VENOUS BLOOD GAS PCO2 52 mmHg (40-60); VENOUS BLOOD GAS PO2 33 mm/Hg (30-55); VENOUS BLOOD PH 7.35 (7.32-7.43)
--- NOTE | 2018-08-04 16:03 | CP.PCM.HP ---
<Daphne Carrasco - Last Filed: 08/04/18 17:14> History of Present Illness - History of Present Illness History of Present Illness: 53 year old male patient, with PMHx of DM, asthma, schizophrenia, admitted to the hospital for right lower extremity ulceration. Patient states that he was recently admitted to [facility] for cellulitis and chronic DVT. He states that occasionally his right leg swells and becomes painful. On 07/28/18 he was admitted to psych for suicidal ideation and auditory hallucinations. During his hospital stay, patient was found to have MRSA infection to right lower extremity ulceration. Denies nausea/vomiting/fever/shortness of breath/chest pain/chills. PMD: Denies PMHx: DMII, asthma, Schizophrenia PSHx: Denies SHx: Denies tobacco use, admits to cocaine use Previous hospitalizations for foot infection and ulcer at [place] [facility]: [facility] ED Course: Blood cx, coags. Patient given clindamycin Present on Admission - Present on Admission Any Indicators Present on Admission: Yes History of DVT/PE: Yes History of Uncontrolled Diabetes: Yes Urinary Catheter: No Review of Systems - Constitutional Constitutional: absent: Chills - Respiratory Respiratory: absent: Cough - Gastrointestinal Gastrointestinal: As Per HPI. absent: Abdominal Pain - Musculoskeletal Musculoskeletal: As Per HPI - Integumentary Additional comments: Right ankle ulceration - Neurological Neurological: As Per HPI - Psychiatric Psychiatric: As Per HPI, Suicidal Ideation - Endocrine Endocrine: As Per HPI - Hematologic/Lymphatic Hematologic: As Per HPI Past Patient History - Past Social History Smoking Status: Never Smoked - CARDIAC Hx Cardiac Disorders: No - PULMONARY Hx Asthma: Yes - NEUROLOGICAL Hx Neurological Disorder: No - HEENT Hx HEENT Problems: No - RENAL Hx Chronic Kidney Disease: No - ENDOCRINE/METABOLIC Hx Endocrine Disorders: Yes (diabetes mellitus type 2) - HEMATOLOGICAL/ONCOLOGICAL Hx Blood Disorders: No - INTEGUMENTARY Hx Dermatological Problems: Yes Hx Cellulitis: Yes (right leg) - MUSCULOSKELETAL/RHEUMATOLOGICAL Hx Musculoskeletal Disorders: No - GASTROINTESTINAL Hx Gastrointestinal Disorders: No - GENITOURINARY/GYNECOLOGICAL Hx Genitourinary Disorders: No - PSYCHIATRIC Hx Anxiety: Yes Hx Depression: Yes Hx Schizophrenia: Yes - SURGICAL HISTORY Hx Surgeries: No - ANESTHESIA Hx Anesthesia: No Meds Allergies/Adverse Reactions: Allergies Allergy/AdvReac Type Severity Reaction Status Date / Time No Known Allergies Allergy Verified 08/04/18 14:32 Physical Exam - Constitutional Appears: Non-toxic, No Acute Distress - Head Exam Head Exam: ATRAUMATIC, NORMOCEPHALIC - Eye Exam Eye Exam: Normal appearance Pupil Exam: NORMAL ACCOMODATION - ENT Exam ENT Exam: Mucous Membranes Moist - Respiratory Exam Respiratory Exam: Wheezes, NORMAL BREATHING PATTERN - Cardiovascular Exam Cardiovascular Exam: REGULAR RHYTHM - GI/Abdominal Exam GI & Abdominal Exam: Normal Bowel Sounds, Soft - Extremities Exam Extremities exam: Positive for: calf tenderness Additional comments: Right calf tenderness Right lower extremity ulceration. - Back Exam Back exam: NORMAL INSPECTION - Neurological Exam Neurological exam: Alert - Psychiatric Exam Psychiatric exam: Suicidal Ideation - Skin Skin Exam: Warm Results - Vital Signs Recent Vital Signs: Last Vital Signs Temp 97.6 F 08/04/18 14:32 Pulse 69 08/04/18 14:32 Resp 20 08/04/18 14:32 BP 126/86 08/04/18 14:32 Pulse Ox 98 08/04/18 15:45 - Labs Result Diagrams: 08/04/18 15:00 08/04/18 15:00 Labs: Laboratory Results - last 24 hr 08/04/18 08/04/18 14:45 15:15 pO2 33 VBG pH 7.35 VBG pCO2 52 VBG HCO3 25.5 VBG Total CO2 30.3 H VBG O2 Sat (Calc) 66.2 H VBG Base Excess 2.1 H VBG Potassium 4.7 Sodium 133.0 Chloride 101.0 Glucose 95 Lactate 1.7 FiO2 21.0 POC Glucose (mg/dL) 88 Venous Blood Potassium 4.7 Assessment & Plan - Assessment and Plan (Free Text) Assessment: 53 year old male patient, with PMHx of DM, asthma, schizophrenia, admitted to the hospital for right lower extremity ulceration. Plan: 1. Right lower extremity superficial ulceration with abscess - Acute - Podiatry consult, Dr. Villalba, reccs appreciated; I&D on 07/31/18 by Podiatry - Wound cx; MRSA - Blood cx ordered; pending - Local wound care to right lower extremity ulceration - MRI to RLE; no abscess noted - C/w Clindamycin 300mg IV Q8 - C/w pain control 2. DMII - Chronic - HbA1C: 6.5 - ACHS - C/w home medications: Metformin, Januvia 3. Asthma - Chronic - C/w advair 1 puff BID 4. Chronic DVT - Chronic - R LE from [place] medical records: R superficial femoral, deep femoral, and popliteal veins fibrous changes suggestive of chronic DVT. - C/w pain control - C/w Warfarin 10mg PO daily 5. Auditory hallucinations/ sleep disturbance - Chronic - Psych consult, reccs appreciated - Date & Time Date: 08/04/18 Time: 16:02 <Joanne Munoz - Last Filed: 08/05/18 17:36> Results - Vital Signs Recent Vital Signs: Last Vital Signs Temp 97.9 F 08/05/18 16:18 Pulse 73 08/05/18 16:18 Resp 20 08/05/18 16:18 BP 95/56 L 08/05/18 16:18 Pulse Ox 98 08/05/18 16:18 - Labs Result Diagrams: 08/04/18 15:00 08/04/18 15:00 Labs: Laboratory Results - last 24 hr 08/04/18 08/05/18 08/05/18 21:23 05:22 10:45 PT INR APTT POC Glucose (mg/dL) 72 91 109 08/05/18 08/05/18 11:55 15:35 PT 15.3 H INR 1.3 APTT 41.7 H POC Glucose (mg/dL) 129 H Attending/Attestation - Attestation I have personally seen and examined this patient.: Yes I have fully participated in the care of the patient.: Yes I have reviewed all pertinent clinical information: Yes Notes (Text): 08/05/18 17:36 Agree with findings and plan as above.
[2018-08-04 16:04] LABS: BASO % 0.7 % (0.0-2.0); EOS # 0.2 K/uL (0.0-0.7); EOS % 3.2 % (0.0-4.0); HEMOGLOBIN 12.3 g/dL (12.0-18.0); INR 1.6; LYMPH # 1.3 K/uL (1.0-4.3); LYMPH % 21.7 % (20.0-40.0); MEAN CORPUSCULAR HGB CONC 33.3 g/dL (33.0-37.0); MONO # 0.7 K/uL (0.0-0.8); MONO % 10.9 % (0.0-10.0); NEUT # 3.8 K/uL (1.8-7.0); NEUT % 63.5 % (50.0-75.0); NRBC % 0.1 % (0.0-0.0); PROTHROMBIN TIME 18.2 Seconds (9.8-13.1); RBC 4.26 Mil/uL (4.40-5.90); RED CELL DISTRIBUTION WIDTH 15.1 % (11.5-14.5)
[2018-08-04 16:08] LABS: PARTIAL THROMBOPLASTIN TIME 41.4 Seconds (25.6-37.1)
[2018-08-04 16:20] LABS: BLOOD UREA NITROGEN 19 mg/dl (9-20); CALCIUM 9.6 mg/dL (8.4-10.2); GFR NON-AFRICAN AMERICAN > 60
[2018-08-04] MEDS ORDERED: Clindamycin 300 MG in Sodium Chloride 0.9% 50 ML IVPB SCH (17:15)
[2018-08-04] MEDS: Clindamycin in NS 300 MG/50 ML BAG IVPB SCH (23:27)
[2018-08-05 00:46] VITALS: RESP 20
[2018-08-05] MEDS: Clindamycin in NS 300 MG/50 ML BAG IVPB SCH ×2 (09:30→16:21)
--- NOTE | 2018-08-05 10:20 | CP.PCM.PN ---
<Daphne Carrasco - Last Filed: 08/05/18 10:53> Subjective - Date & Time of Evaluation Date of Evaluation: 08/05/18 Time of Evaluation: 10:20 - Subjective Subjective: Patient seen and evaluated this AM. Patient resting comfortably and in NAD. Patient states that the tops of his feet are very itchy, however he reports no pain to the area. He reports mild pain to his right calf with ambulation. Denies nausea/vomiting/fever/shortness of breath/chest pain. Objective - Vital Signs/Intake and Output Vital Signs (last 24 hours): Temp Pulse Resp BP Pulse Ox 97.5 F L 62 20 109/62 96 08/05/18 08:06 08/05/18 08:06 08/05/18 08:06 08/05/18 08:06 08/05/18 08:06 - Medications Medications: Current Medications Acetaminophen (Tylenol 325mg Tab) 650 mg PO Q6 PRN PRN Reason: Pain, Mild (1-3) Acetaminophen (Tylenol 325mg Tab) 650 mg PO Q6 PRN PRN Reason: Fever >100.4 F Acetaminophen (Tylenol 325mg Tab) 975 mg PO Q6H PRN PRN Reason: Pain, moderate (4-7) Aripiprazole (Abilify) 5 mg PO DAILY [facility] Last Admin: 08/05/18 09:31 Dose: 5 mg Diphenhydramine HCl (Benadryl) 50 mg PO HS PRN PRN Reason: Sleep Last Admin: 08/04/18 23:36 Dose: 50 mg Gabapentin (Neurontin) 200 mg PO TID [facility] Last Admin: 08/05/18 09:30 Dose: 200 mg Haloperidol (Haldol) 5 mg PO Q4 PRN PRN Reason: Agitation Clindamycin in NS (Clindamycin 300 Mg/50 Ml-Ns) 300 mg in 50 mls @ 50 mls/hr IVPB Q8 [facility]; Protocol Last Admin: 08/05/18 09:30 Dose: 50 mls/hr Metformin HCl (Glucophage) 1,000 mg PO BID [facility] Last Admin: 08/05/18 09:31 Dose: 1,000 mg Ondansetron HCl (Zofran Inj) 4 mg IVP Q6 PRN PRN Reason: Nausea/Vomiting Sertraline HCl (Zoloft) 50 mg PO DAILY [facility] Last Admin: 08/05/18 09:31 Dose: 50 mg Sitagliptin Phosphate (Januvia) 50 mg PO DAILY [facility] Last Admin: 08/05/18 09:32 Dose: 50 mg Trazodone HCl (Desyrel) 200 mg PO HS [facility] Last Admin: 08/04/18 21:45 Dose: 200 mg Warfarin Sodium (Coumadin) 10 mg PO DAILY [facility]; Protocol - Labs Labs: 08/04/18 15:00 08/04/18 15:00 PT 18.2 Seconds (9.8-13.1) H D 08/04/18 15:00 INR 1.6 08/04/18 15:00 APTT 41.4 Seconds (25.6-37.1) H 08/04/18 15:00 - Constitutional Appears: Non-toxic, No Acute Distress - Head Exam Head Exam: ATRAUMATIC, NORMOCEPHALIC - Eye Exam Eye Exam: Normal appearance Pupil Exam: NORMAL ACCOMODATION - ENT Exam ENT Exam: Mucous Membranes Moist - Neck Exam Neck Exam: Normal Inspection - Respiratory Exam Respiratory Exam: Clear to Ausculation Bilateral, NORMAL BREATHING PATTERN - Cardiovascular Exam Cardiovascular Exam: REGULAR RHYTHM - GI/Abdominal Exam GI & Abdominal Exam: Soft, Normal Bowel Sounds - Extremities Exam Additional comments: Right lower extremity dressing clean/dry/intact Cellulitic/hyperpigmented changes to dorsal aspect of feet b/l - Neurological Exam Neurological Exam: Alert, Awake - Psychiatric Exam Psychiatric exam: Normal Affect, Normal Mood Assessment and Plan - Assessment and Plan (Free Text) Assessment: 53 year old male patient, with PMHx of DM, asthma, schizophrenia, admitted to the hospital for right lower extremity ulceration with cellulitic changes . Plan: 1. Right lower extremity superficial ulceration with abscess - Acute - Podiatry consult, Dr. Villalba, reccs appreciated; I&D on 07/31/18 by Podiatry - Wound cx; MRSA, patient on contact - Blood cx ordered; pending - Local wound care to right lower extremity ulceration - MRI to RLE; no abscess noted - C/w Clindamycin 300mg IV Q8 - C/w pain control 2. DMII - Chronic - HbA1C: 6.5 - ACHS - C/w home medications: Metformin, Januvia 3. Asthma - Chronic - C/w advair 1 puff BID 4. Chronic DVT - Chronic - R LE US from [place] medical records: R superficial femoral, deep femoral, and popliteal veins fibrous changes suggestive of chronic DVT. - C/w pain control - C/w Warfarin 10mg PO daily 5. Auditory hallucinations/ sleep disturbance - Chronic - Psych consult, Dr. Avery, [facility] appreciated <Joanne Munoz Eulogio - Last Filed: 08/05/18 17:35> Objective - Vital Signs/Intake and Output Vital Signs (last 24 hours): Temp Pulse Resp BP Pulse Ox 97.9 F 73 20 95/56 L 98 08/05/18 16:18 08/05/18 16:18 08/05/18 16:18 08/05/18 16:18 08/05/18 16:18 - Medications Medications: Current Medications Acetaminophen (Tylenol 325mg Tab) 650 mg PO Q6 PRN PRN Reason: Pain, Mild (1-3) Acetaminophen (Tylenol 325mg Tab) 650 mg PO Q6 PRN PRN Reason: Fever >100.4 F Acetaminophen (Tylenol 325mg Tab) 975 mg PO Q6H PRN PRN Reason: Pain, moderate (4-7) Aripiprazole (Abilify) 5 mg PO DAILY [facility] Last Admin: 08/05/18 09:31 Dose: 5 mg Diphenhydramine HCl (Benadryl) 50 mg PO HS PRN PRN Reason: Sleep Last Admin: 08/04/18 23:36 Dose: 50 mg Gabapentin (Neurontin) 200 mg PO TID [facility] Last Admin: 08/05/18 16:23 Dose: 200 mg Haloperidol (Haldol) 5 mg PO Q4 PRN PRN Reason: Agitation Clindamycin in NS (Clindamycin 300 Mg/50 Ml-Ns) 300 mg in 50 mls @ 50 mls/hr IVPB Q8 [facility]; Protocol Last Admin: 08/05/18 16:21 Dose: 50 mls/hr Metformin HCl (Glucophage) 1,000 mg PO BID [facility] Last Admin: 08/05/18 16:22 Dose: 1,000 mg Ondansetron HCl (Zofran Inj) 4 mg IVP Q6 PRN PRN Reason: Nausea/Vomiting Sertraline HCl (Zoloft) 50 mg PO DAILY [facility] Last Admin: 08/05/18 09:31 Dose: 50 mg Sitagliptin Phosphate (Januvia) 50 mg PO DAILY [facility] Last Admin: 08/05/18 09:32 Dose: 50 mg Trazodone HCl (Desyrel) 200 mg PO [facility] Last Admin: 08/04/18 21:45 Dose: 200 mg - Labs Labs: 08/04/18 15:00 08/04/18 15:00 PT 15.3 Seconds (9.8-13.1) H 08/05/18 11:55 INR 1.3 08/05/18 11:55 APTT 41.7 Seconds (25.6-37.1) H 08/05/18 11:55 Attending/Attestation - Attestation I have personally seen and examined this patient.: Yes I have fully participated in the care of the patient.: Yes I have reviewed all pertinent clinical information, including history, physical exam and plan: Yes Notes (Text): 08/05/18 17:35 Agree with findings and plan as above.
[2018-08-05 12:10] LABS: INR 1.3; PROTHROMBIN TIME 15.3 Seconds (9.8-13.1)
[2018-08-05 12:13] LABS: PARTIAL THROMBOPLASTIN TIME 41.7 Seconds (25.6-37.1)
--- NOTE | 2018-08-05 15:46 | CP.PCM.CON ---
History of Present Illness - History of Present Illness History of Present Illness: pt is 53 ys old e[place] with previous diagnosis of depression and cocaine abuse On 07/28/18 he was admitted to psych for suicidal ideation and auditory hallucinations. pt was treated with zoloft and abilify, motivational and group therapy , pt was compliant with treatment and showed gradual improvement in mental status , pt was psychiatricall y cleared for discharge yet , patient was found to have MRSA infection to right lower extremity ulceration. was transferred to medical floor for treatment with IV antibiotics on evaluation pt calm and cooperative good eye contact speech normal, thought form coherent ,denied any current suicidal or homiidal ideation denied perceptual disturbances non elicited , alert awake , ox3 Past Patient History - Past Medical History & Family History Past Medical History?: Yes - Past Social History Smoking Status: Never Smoked - CARDIAC Hx Cardiac Disorders: No - PULMONARY Hx Respiratory Disorders: Yes Hx Asthma: Yes - NEUROLOGICAL Hx Neurological Disorder: No - HEENT Hx HEENT Problems: No - RENAL Hx Chronic Kidney Disease: No - ENDOCRINE/METABOLIC Hx Endocrine Disorders: Yes (diabetes mellitus type 2) Hx Diabetes Mellitus Type 2: Yes - HEMATOLOGICAL/ONCOLOGICAL Hx Blood Disorders: No - INTEGUMENTARY Hx Dermatological Problems: Yes Hx Cellulitis: Yes (right leg) - MUSCULOSKELETAL/RHEUMATOLOGICAL Hx Musculoskeletal Disorders: No Hx Falls: Yes - GASTROINTESTINAL Hx Gastrointestinal Disorders: No - GENITOURINARY/GYNECOLOGICAL Hx Genitourinary Disorders: No - PSYCHIATRIC Hx Psychophysiologic Disorder: Yes Hx Anxiety: Yes Hx Depression: Yes Hx Schizophrenia: Yes Hx Substance Use: Yes (Cocaine) - SURGICAL HISTORY Hx Surgeries: No - ANESTHESIA Hx Anesthesia: No Hx Anesthesia Reactions: No Meds Allergies/Adverse Reactions: Allergies Allergy/AdvReac Type Severity Reaction Status Date / Time No Known Allergies Allergy Verified 08/04/18 14:32 - Medications Medications: Current Medications Acetaminophen (Tylenol 325mg Tab) 650 mg PO Q6 PRN PRN Reason: Pain, Mild (1-3) Acetaminophen (Tylenol 325mg Tab) 650 mg PO Q6 PRN PRN Reason: Fever >100.4 F Acetaminophen (Tylenol 325mg Tab) 975 mg PO Q6H PRN PRN Reason: Pain, moderate (4-7) Aripiprazole (Abilify) 5 mg PO DAILY [facility] Last Admin: 08/05/18 09:31 Dose: 5 mg Diphenhydramine HCl (Benadryl) 50 mg PO HS PRN PRN Reason: Sleep Last Admin: 08/04/18 23:36 Dose: 50 mg Gabapentin (Neurontin) 200 mg PO TID [facility] Last Admin: 08/05/18 12:11 Dose: 200 mg Haloperidol (Haldol) 5 mg PO Q4 PRN PRN Reason: Agitation Clindamycin in NS (Clindamycin 300 Mg/50 Ml-Ns) 300 mg in 50 mls @ 50 mls/hr IVPB Q8 [facility]; Protocol Last Admin: 08/05/18 09:30 Dose: 50 mls/hr Metformin HCl (Glucophage) 1,000 mg PO BID [facility] Last Admin: 08/05/18 09:31 Dose: 1,000 mg Ondansetron HCl (Zofran Inj) 4 mg IVP Q6 PRN PRN Reason: Nausea/Vomiting Sertraline HCl (Zoloft) 50 mg PO DAILY [facility] Last Admin: 08/05/18 09:31 Dose: 50 mg Sitagliptin Phosphate (Januvia) 50 mg PO DAILY [facility] Last Admin: 08/05/18 09:32 Dose: 50 mg Trazodone HCl (Desyrel) 200 mg PO HS [facility] Last Admin: 08/04/18 21:45 Dose: 200 mg Warfarin Sodium (Coumadin) 10 mg PO DAILY@1700 [facility]; Protocol Stop: 08/05/18 17:01 Results - Vital Signs Recent Vital Signs: Last Vital Signs Temp 97.5 F L 08/05/18 08:06 Pulse 62 08/05/18 08:06 Resp 20 08/05/18 08:06 BP 109/62 08/05/18 08:06 Pulse Ox 96 08/05/18 08:06 - Labs Result Diagrams: 08/04/18 15:00 08/04/18 15:00 Labs: Laboratory Results - last 24 hr 08/04/18 08/04/18 08/04/18 15:00 15:00 15:00 WBC 6.0 RBC 4.26 L Hgb 12.3 Hct 37.0 MCV 87.0 MCH 29.0 MCHC 33.3 RDW 15.1 H Plt Count 248 MPV 8.0 Neut % (Auto) 63.5 Lymph % (Auto) 21.7 [place] % (Auto) 10.9 H Eos % (Auto) 3.2 Baso % (Auto) 0.7 Neut # (Auto) 3.8 Lymph # (Auto) 1.3 [place] # (Auto) 0.7 Eos # (Auto) 0.2 Baso # (Auto) 0.0 PT 18.2 H D INR 1.6 APTT 41.4 H D-Dimer, Quantitative 399 H Sodium 136 Potassium 4.3 Chloride 97 L Carbon Dioxide 26 Anion Gap 17 BUN 19 Creatinine 1.0 Est GFR ( Amer) > 60 Est GFR (Non-Af Amer) > 60 POC Glucose (mg/dL) Random Glucose 82 Calcium 9.6 08/04/18 08/04/18 08/05/18 17:30 21:23 05:22 WBC RBC Hgb Hct MCV MCH MCHC RDW Plt Count MPV Neut % (Auto) Lymph % (Auto) [place] % (Auto) Eos % (Auto) Baso % (Auto) Neut # (Auto) Lymph # (Auto) [place] # (Auto) Eos # (Auto) Baso # (Auto) PT INR APTT D-Dimer, Quantitative Sodium Potassium Chloride Carbon Dioxide Anion Gap BUN Creatinine Est GFR ( Amer) Est GFR (Non-Af Amer) POC Glucose (mg/dL) 82 72 91 Random Glucose Calcium 08/05/18 08/05/18 10:45 11:55 WBC RBC Hgb Hct MCV MCH MCHC RDW Plt Count MPV Neut % (Auto) Lymph % (Auto) [place] % (Auto) Eos % (Auto) Baso % (Auto) Neut # (Auto) Lymph # (Auto) [place] # (Auto) Eos # (Auto) Baso # (Auto) PT 15.3 H INR 1.3 APTT 41.7 H D-Dimer, Quantitative Sodium Potassium Chloride Carbon Dioxide Anion Gap BUN Creatinine Est GFR ( Amer) Est GFR (Non-Af Amer) POC Glucose (mg/dL) 109 Random Glucose Calcium Assessment & Plan - Assessment and Plan (Free Text) Assessment: major depression cocaine abuse Plan: pt at current mental status psychiatrically cleared for discharge upon medical clearance / cleared psychiatrically to be transferred to acute rehab
[2018-08-06] MEDS: Clindamycin in NS 300 MG/50 ML BAG IVPB SCH ×2 (01:18→09:18)
[2018-08-06 07:09] LABS: MEAN CELL VOLUME 87.2 fl (80.0-94.0); MEAN CORPUSCULAR HEMOGLOBIN 29.5 pg (27.0-31.0); MEAN CORPUSCULAR HGB CONC 33.8 g/dL (33.0-37.0); RBC 4.4 Mil/uL (4.40-5.90); RED CELL DISTRIBUTION WIDTH 15.2 % (11.5-14.5); WHITE BLOOD COUNT 4.9 K/uL (4.8-10.8)
[2018-08-06 08:18] VITALS: PULSE 62
--- NOTE | 2018-08-06 09:23 | CP.PCM.PN ---
Subjective - Date & Time of Evaluation Date of Evaluation: 08/06/18 Time of Evaluation: 09:21 - Subjective Subjective: Podiatry progress note for Dr. Villalba, 53 y/o M with PMHx of DM, asthma and schizophrenia seen and evaluated for right lower extremity cellulitis. Patient is AAOx3 and states the pain has decreased. Patient also seen to be ambulating barefoot in the hallway prior to evaluation. Patient denies any fever, chills, nausea, vomiting, diarrhea, constipation, dizziness, CP or SOB. Objective - Vital Signs/Intake and Output Vital Signs (last 24 hours): Temp Pulse Resp BP Pulse Ox 97.8 F 62 20 109/67 97 08/06/18 08:17 08/06/18 08:17 08/06/18 08:17 08/06/18 08:17 08/06/18 08:17 - Medications Medications: Current Medications Acetaminophen (Tylenol 325mg Tab) 650 mg PO Q6 PRN PRN Reason: Pain, Mild (1-3) Acetaminophen (Tylenol 325mg Tab) 650 mg PO Q6 PRN PRN Reason: Fever >100.4 F Acetaminophen (Tylenol 325mg Tab) 975 mg PO Q6H PRN PRN Reason: Pain, moderate (4-7) Aripiprazole (Abilify) 5 mg PO DAILY [facility] Last Admin: 08/06/18 09:18 Dose: 5 mg Diphenhydramine HCl (Benadryl) 50 mg PO HS PRN PRN Reason: Sleep Last Admin: 08/04/18 23:36 Dose: 50 mg Gabapentin (Neurontin) 200 mg PO TID [facility] Last Admin: 08/05/18 16:23 Dose: 200 mg Haloperidol (Haldol) 5 mg PO Q4 PRN PRN Reason: Agitation Clindamycin in NS (Clindamycin 300 Mg/50 Ml-Ns) 300 mg in 50 mls @ 50 mls/hr IVPB Q8 [facility]; Protocol Last Admin: 08/06/18 09:18 Dose: 50 mls/hr Metformin HCl (Glucophage) 1,000 mg PO BID [facility] Last Admin: 08/06/18 09:18 Dose: 1,000 mg Ondansetron HCl (Zofran Inj) 4 mg IVP Q6 PRN PRN Reason: Nausea/Vomiting Sertraline HCl (Zoloft) 50 mg PO DAILY [facility] Last Admin: 08/05/18 09:31 Dose: 50 mg Sitagliptin Phosphate (Januvia) 50 mg PO DAILY [facility] Last Admin: 08/05/18 09:32 Dose: 50 mg Trazodone HCl (Desyrel) 200 mg PO HS [facility] Last Admin: 08/05/18 21:34 Dose: 200 mg Warfarin Sodium (Coumadin) 10 mg PO QD5 [facility]; Protocol Stop: 08/06/18 17:01 - Labs Labs: 08/06/18 06:45 08/04/18 15:00 PT 15.3 Seconds (9.8-13.1) H 08/05/18 11:55 INR 1.3 08/05/18 11:55 APTT 41.7 Seconds (25.6-37.1) H 08/05/18 11:55 - Constitutional Appears: Well, Non-toxic, No Acute Distress - Head Exam Head Exam: ATRAUMATIC, NORMOCEPHALIC - Extremities Exam Additional comments: Bilateral Lower Extremity Exam VASC: DP and PT 2/4 bilaterally, CFT less than 3 seconds X 10, no edema, positive erythema to the RLE NEURO: grossly intact DERM: superficial scab noted to the medial malleolus of the right leg with some fluctuance, erythema decreasing, no probe to bone, no tunneling, no malodor, another ulceration noted to the anterior leg about 3 cm X 3 cm with granular base, no erythema, no probe to bone, no tunneling, no malodor, no fluctuance noted. ORTHO: pain on palpation to the previous abscess, MSK 5/5 - Neurological Exam Neurological Exam: Alert, Awake, Oriented x3 - Psychiatric Exam Psychiatric exam: Normal Affect, Normal Mood Assessment and Plan - Assessment and Plan (Free Text) Assessment: 53 y/o male consulted on for RLE cellulitis with right leg superficial abscess, admitted to med surg for IV Abx Plan: Patient seen and evaluated Plan discussed with Dr. Villalba Chart, labs and vitals were reviewed ID consulted, recommendations were appreciated Continue Abx: clindamycin Wound cultures: MRSA Right leg MRI without contrast was ordered: no abscess noted No abscess noted on MRI No podiatric intervention at this time Site was dressed with adaptic, xeroform, DSD Patient could benefit from IV Abx at this time Podiatry will continue to follow patient while in house
[2018-08-06 11:09] LABS: INR 1.3; PROTHROMBIN TIME 14.5 Seconds (9.8-13.1)
[2018-08-06 11:12] LABS: PARTIAL THROMBOPLASTIN TIME 44.9 Seconds (25.6-37.1)
--- NOTE | 2018-08-06 11:33 | CP.PCM.PN ---
Subjective - Date & Time of Evaluation Date of Evaluation: 08/06/18 Time of Evaluation: 11:31 - Subjective Subjective: Patient seen and evaluated this morning. Patient resting comfortably, no acute distress. Patient states that the top of his feet are very itchy today and causing discomfort. Patient states that he had one episode of diarrhea. Denies nausea/vomiting/fever/shortness of breath/chest pain. Objective - Vital Signs/Intake and Output Vital Signs (last 24 hours): Temp Pulse Resp BP Pulse Ox 97.8 F 62 20 109/67 97 08/06/18 08:17 08/06/18 08:17 08/06/18 08:17 08/06/18 08:17 08/06/18 08:17 - Medications Medications: Current Medications Acetaminophen (Tylenol 325mg Tab) 650 mg PO Q6 PRN PRN Reason: Pain, Mild (1-3) Acetaminophen (Tylenol 325mg Tab) 650 mg PO Q6 PRN PRN Reason: Fever >100.4 F Acetaminophen (Tylenol 325mg Tab) 975 mg PO Q6H PRN PRN Reason: Pain, moderate (4-7) Aripiprazole (Abilify) 5 mg PO DAILY [facility] Last Admin: 08/06/18 09:18 Dose: 5 mg Aripiprazole (Abilify) 5 mg PO HS [facility] Clotrimazole (Lotrimin 1% Cream) 1 applic TOP BID [facility] Last Admin: 08/06/18 10:00 Dose: 1 applic Diphenhydramine HCl (Benadryl) 50 mg PO HS PRN PRN Reason: Sleep Last Admin: 08/04/18 23:36 Dose: 50 mg Gabapentin (Neurontin) 200 mg PO TID [facility] Last Admin: 08/06/18 09:21 Dose: 200 mg Haloperidol (Haldol) 5 mg PO Q4 PRN PRN Reason: Agitation Vancomycin HCl 1 gm/ Sodium (Chloride) 250 mls @ 166.667 mls/hr IVPB Q12 [facility]; Protocol Metformin HCl (Glucophage) 1,000 mg PO BID [facility] Last Admin: 08/06/18 09:18 Dose: 1,000 mg Ondansetron HCl (Zofran Inj) 4 mg IVP Q6 PRN PRN Reason: Nausea/Vomiting Sertraline HCl (Zoloft) 50 mg PO DAILY [facility] Last Admin: 08/06/18 09:21 Dose: 50 mg Sitagliptin Phosphate (Januvia) 50 mg PO DAILY [facility] Last Admin: 08/06/18 09:20 Dose: 50 mg Trazodone HCl (Desyrel) 200 mg PO HS [facility] Last Admin: 08/05/18 21:34 Dose: 200 mg Warfarin Sodium (Coumadin) 10 mg PO QD5 [facility]; Protocol Stop: 08/06/18 17:01 - Labs Labs: 08/06/18 06:45 08/04/18 15:00 PT 14.5 Seconds (9.8-13.1) H 08/06/18 10:46 INR 1.3 08/06/18 10:46 APTT 44.9 Seconds (25.6-37.1) H 08/06/18 10:46 - Constitutional Appears: Non-toxic, No Acute Distress - Head Exam Head Exam: ATRAUMATIC, NORMOCEPHALIC - Eye Exam Eye Exam: Normal appearance Pupil Exam: NORMAL ACCOMODATION - Respiratory Exam Respiratory Exam: Clear to Ausculation Bilateral, NORMAL BREATHING PATTERN - Cardiovascular Exam Cardiovascular Exam: REGULAR RHYTHM - GI/Abdominal Exam GI & Abdominal Exam: Soft, Normal Bowel Sounds - Extremities Exam Additional comments: Right lower extremity dressing clean/dry/intact Erythema and hyperpigmentation appreciated to dorsal aspect of feet bilaterally Assessment and Plan - Assessment and Plan (Free Text) Assessment: 53 year old male patient, with PMHx of DM, asthma, schizophrenia, admitted to the hospital for right lower extremity ulceration with cellulitic changes Plan: 1. Right lower extremity superficial ulceration with abscess - Acute - Podiatry consult, Dr. Villalba, reccs appreciated; I&D on 07/31/18 by Podiatry - Wound cx; MRSA, patient on contact - Blood cx ordered; no growth after 24 hrs - Local wound care to right lower extremity ulceration - MRI to RLE; no abscess noted - C/w Vanco 1gm Q12, switched from Clinda secondary to diarrhea - C/w pain control 2. DMII - Chronic - HbA1C: 6.5 - ACHS - C/w home medications: Metformin, Januvia 3. Asthma - Chronic - C/w advair 1 puff BID 4. Chronic DVT - Chronic - R ALCIDES ONOFRE from [facility] medical records: R superficial femoral, deep femoral, and popliteal veins fibrous changes suggestive of chronic DVT. - C/w pain control - C/w Warfarin 10mg PO daily 5. Auditory hallucinations/ sleep disturbance - Chronic - Psych consult, Dr. Avery, reccs appreciated
[2018-08-06 15:41] VITALS: BP 118/79; TEMP 97.6; O2SAT 94
--- NOTE | 2018-08-06 17:19 | CP.PCM.DIS ---
<Rosemary Metz - Last Filed: 08/06/18 17:19> Provider - Provider Date of Admission: 08/04/18 15:44 Attending physician: Joanne Munoz DO Consults: 08/05/18 00:08 Social Work Referral Routine Comment: Homeless. Substance abuse. Physician Instructions: Reason For Exam: Homeless. Substance abuse. 08/05/18 06:43 Podiatry Consult Routine Comment: Consulting Provider: Linette Villalba Consulting Physician: Linette Villalba Reason for Consult: Right superficial ulceration 08/05/18 10:11 Psychiatry Consult Routine Comment: schizophrenia Consulting Provider: Odette Avery Consulting Physician: Odette Avery Reason for Consult: schizophrenia Time Spent in preparation of Discharge (in minutes): 20 Hospital Course - Lab Results Lab Results: Micro Results 08/04/18 15:30 Blood-Venous Blood Culture - Preliminary NO GROWTH AFTER 48 HOURS 08/04/18 15:00 Blood-Venous Blood Culture - Preliminary NO GROWTH AFTER 48 HOURS Most Recent Lab Values WBC 4.9 K/uL (4.8-10.8) 08/06/18 06:45 RBC 4.40 Mil/uL (4.40-5.90) 08/06/18 06:45 Hgb 13.0 g/dL (12.0-18.0) 08/06/18 06:45 Hct 38.4 % (35.0-51.0) 08/06/18 06:45 MCV 87.2 fl (80.0-94.0) 08/06/18 06:45 MCH 29.5 pg (27.0-31.0) 08/06/18 06:45 MCHC 33.8 g/dL (33.0-37.0) 08/06/18 06:45 RDW 15.2 % (11.5-14.5) H 08/06/18 06:45 Plt Count 261 K/uL (130-400) 08/06/18 06:45 MPV 8.0 fl (7.2-11.7) 08/04/18 15:00 Neut % (Auto) 63.5 % (50.0-75.0) 08/04/18 15:00 Lymph % (Auto) 21.7 % (20.0-40.0) 08/04/18 15:00 [place] % (Auto) 10.9 % (0.0-10.0) H 08/04/18 15:00 Eos % (Auto) 3.2 % (0.0-4.0) 08/04/18 15:00 Baso % (Auto) 0.7 % (0.0-2.0) 08/04/18 15:00 Neut # (Auto) 3.8 K/uL (1.8-7.0) 08/04/18 15:00 Lymph # (Auto) 1.3 K/uL (1.0-4.3) 08/04/18 15:00 [place] # (Auto) 0.7 K/uL (0.0-0.8) 08/04/18 15:00 Eos # (Auto) 0.2 K/uL (0.0-0.7) 08/04/18 15:00 Baso # (Auto) 0.0 K/uL (0.0-0.2) 08/04/18 15:00 PT 14.5 Seconds (9.8-13.1) H 08/06/18 10:46 INR 1.3 08/06/18 10:46 APTT 44.9 Seconds (25.6-37.1) H 08/06/18 10:46 D-Dimer, Quantitative 399 ng/mlDDU (0-230) H 08/04/18 15:00 pO2 33 mm/Hg (30-55) 08/04/18 15:15 VBG pH 7.35 (7.32-7.43) 08/04/18 15:15 VBG pCO2 52 mmHg (40-60) 08/04/18 15:15 VBG HCO3 25.5 mmol/L 08/04/18 15:15 VBG Total CO2 30.3 mmol/L (22-28) H 08/04/18 15:15 VBG O2 Sat (Calc) 66.2 % (40-65) H 08/04/18 15:15 VBG Base Excess 2.1 mmol/L (0.0-2.0) H 08/04/18 15:15 VBG Potassium 4.7 mmol/L (3.6-5.2) 08/04/18 15:15 Sodium 133.0 mmol/L (132-148) 08/04/18 15:15 Chloride 101.0 mmol/L (98-107) 08/04/18 15:15 Glucose 95 mg/dL (75-110) 08/04/18 15:15 Lactate 1.7 mmol/L (0.7-2.1) 08/04/18 15:15 FiO2 21.0 % 08/04/18 15:15 Sodium 136 mmol/l (132-148) 08/04/18 15:00 Potassium 4.3 MMOL/L (3.6-5.0) 08/04/18 15:00 Chloride 97 mmol/L (98-107) L 08/04/18 15:00 Carbon Dioxide 26 mmol/L (22-30) 08/04/18 15:00 Anion Gap 17 (10-20) 08/04/18 15:00 BUN 19 mg/dl (9-20) 08/04/18 15:00 Creatinine 1.0 mg/dl (0.8-1.5) 08/04/18 15:00 Est GFR ( Amer) > 60 08/04/18 15:00 Est GFR (Non-Af Amer) > 60 08/04/18 15:00 POC Glucose (mg/dL) 85 mg/dL (65-110) 08/06/18 15:43 Random Glucose 82 mg/dL (75-110) 08/04/18 15:00 Calcium 9.6 mg/dL (8.4-10.2) 08/04/18 15:00 Venous Blood Potassium 4.7 mmol/L (3.6-5.2) 08/04/18 15:15 - Hospital Course Hospital Course: 53 year old male patient,homeless, initially admitted to psych On 07/28/18 for suicidal ideation and auditory hallucinations. During his hospital stay, patient was found to have MRSA infection to right lower extremity ulceration. Treated with Clindamycin PO, place on contact precautions, Pt consulted by ID, patient was discharged from psyq unit and readmitted again to med/surg to c/w IV abx clindamycin, pt had episode of diarrhea today. clinda switched to Vancomycin, Pt medically clear and cleared p[odiatry and by psyq to be discharged to TCU to c/w Vancomycin treatment to complete 10 days of IV Abx. PT on coumadin 10 mg for chronic DVT, INR no therpeutic . will c/w coumadin 10 mg daily . Diagnosis on discharge 1. Right lower extremity superficial ulceration with abscess - Podiatry consult, Dr. Villalba, reccs appreciated; I&D on 07/31/18 by Podiatry - Wound cx; MRSA, patient on contact - Blood cx ordered; no growth after 24 hrs - Local wound care to right lower extremity ulceration - MRI to RLE; no abscess noted - C/w Vanco 1gm Q12, switched from Clinda secondary to diarrhea - C/w pain control 2. DMII - Chronic 3. Asthma - Chronic - C/w advair 1 puff BID 4. Chronic DVT - Chronic - R ALCIDES ONOFRE from [facility] medical records: R superficial femoral, deep femoral, and popliteal veins fibrous changes suggestive of chronic DVT. - C/w pain control - C/w Warfarin 10mg PO daily 5. Auditory hallucinations/ sleep disturbance - Chronic - Psych consult, Dr. Avery, reccs appreciated Discharge Exam - Head Exam Head Exam: ATRAUMATIC, NORMOCEPHALIC - Respiratory Exam Respiratory Exam: Clear to PA & Lateral. absent: Rales, Rhonchi - Cardiovascular Exam Cardiovascular Exam: REGULAR RHYTHM, +S1, +S2 - GI/Abdominal Exam GI & Abdominal Exam: Normal Bowel Sounds, Soft. absent: Tenderness - Extremities Exam Additional comments: Right lower extremity dressing clean/dry/intact Erythema and hyperpigmentation appreciated to dorsal aspect of feet bilaterally - Neurological Exam Neurological exam: Alert - Psychiatric Exam Psychiatric exam: Normal Affect, Normal Mood - Skin Additional comments: Right lower extremity dressing clean/dry/intact Erythema and hyperpigmentation appreciated to dorsal aspect of feet bilaterally Discharge Plan - Follow Up Plan Condition: FAIR Disposition: REHAB FACILITY/REHAB UNIT Instructions: Cellulitis (Skin Infection), Adult (DC) Additional Instructions: -Discharge to TCU to c/w Abx Vancomycin to complete 10 days Referrals: Linette Villalba DPM [Staff Provider] - <Katelyn Jennings - Last Filed: 08/06/18 18:07> Provider - Provider Date of Admission: 08/04/18 15:44 Attending physician: Joanne Munoz DO Consults: 08/05/18 00:08 Social Work Referral Routine Comment: Homeless. Substance abuse. Physician Instructions: Reason For Exam: Homeless. Substance abuse. 08/05/18 06:43 Podiatry Consult Routine Comment: Consulting Provider: Linette Villalba Consulting Physician: Linette Villalba Reason for Consult: Right superficial ulceration 08/05/18 10:11 Psychiatry Consult Routine Comment: schizophrenia Consulting Provider: Odette Avery Consulting Physician: Odette Avery Reason for Consult: schizophrenia Hospital Course - Lab Results Lab Results: Micro Results 08/04/18 15:30 Blood-Venous Blood Culture - Preliminary NO GROWTH AFTER 48 HOURS 08/04/18 15:00 Blood-Venous Blood Culture - Preliminary NO GROWTH AFTER 48 HOURS Most Recent Lab Values WBC 4.9 K/uL (4.8-10.8) 08/06/18 06:45 RBC 4.40 Mil/uL (4.40-5.90) 08/06/18 06:45 Hgb 13.0 g/dL (12.0-18.0) 08/06/18 06:45 Hct 38.4 % (35.0-51.0) 08/06/18 06:45 MCV 87.2 fl (80.0-94.0) 08/06/18 06:45 MCH 29.5 pg (27.0-31.0) 08/06/18 06:45 MCHC 33.8 g/dL (33.0-37.0) 08/06/18 06:45 RDW 15.2 % (11.5-14.5) H 08/06/18 06:45 Plt Count 261 K/uL (130-400) 08/06/18 06:45 MPV 8.0 fl (7.2-11.7) 08/04/18 15:00 Neut % (Auto) 63.5 % (50.0-75.0) 08/04/18 15:00 Lymph % (Auto) 21.7 % (20.0-40.0) 08/04/18 15:00 [place] % (Auto) 10.9 % (0.0-10.0) H 08/04/18 15:00 Eos % (Auto) 3.2 % (0.0-4.0) 08/04/18 15:00 Baso % (Auto) 0.7 % (0.0-2.0) 08/04/18 15:00 Neut # (Auto) 3.8 K/uL (1.8-7.0) 08/04/18 15:00 Lymph # (Auto) 1.3 K/uL (1.0-4.3) 08/04/18 15:00 [place] # (Auto) 0.7 K/uL (0.0-0.8) 08/04/18 15:00 Eos # (Auto) 0.2 K/uL (0.0-0.7) 08/04/18 15:00 Baso # (Auto) 0.0 K/uL (0.0-0.2) 08/04/18 15:00 PT 14.5 Seconds (9.8-13.1) H 08/06/18 10:46 INR 1.3 08/06/18 10:46 APTT 44.9 Seconds (25.6-37.1) H 08/06/18 10:46 D-Dimer, Quantitative 399 ng/mlDDU (0-230) H 08/04/18 15:00 pO2 33 mm/Hg (30-55) 08/04/18 15:15 VBG pH 7.35 (7.32-7.43) 08/04/18 15:15 VBG pCO2 52 mmHg (40-60) 08/04/18 15:15 VBG HCO3 25.5 mmol/L 08/04/18 15:15 VBG Total CO2 30.3 mmol/L (22-28) H 08/04/18 15:15 VBG O2 Sat (Calc) 66.2 % (40-65) H 08/04/18 15:15 VBG Base Excess 2.1 mmol/L (0.0-2.0) H 08/04/18 15:15 VBG Potassium 4.7 mmol/L (3.6-5.2) 08/04/18 15:15 Sodium 133.0 mmol/L (132-148) 08/04/18 15:15 Chloride 101.0 mmol/L (98-107) 08/04/18 15:15 Glucose 95 mg/dL (75-110) 08/04/18 15:15 Lactate 1.7 mmol/L (0.7-2.1) 08/04/18 15:15 FiO2 21.0 % 08/04/18 15:15 Sodium 136 mmol/l (132-148) 08/04/18 15:00 Potassium 4.3 MMOL/L (3.6-5.0) 08/04/18 15:00 Chloride 97 mmol/L (98-107) L 08/04/18 15:00 Carbon Dioxide 26 mmol/L (22-30) 08/04/18 15:00 Anion Gap 17 (10-20) 08/04/18 15:00 BUN 19 mg/dl (9-20) 08/04/18 15:00 Creatinine 1.0 mg/dl (0.8-1.5) 08/04/18 15:00 Est GFR ( Amer) > 60 08/04/18 15:00 Est GFR (Non-Af Amer) > 60 08/04/18 15:00 POC Glucose (mg/dL) 85 mg/dL (65-110) 08/06/18 15:43 Random Glucose 82 mg/dL (75-110) 08/04/18 15:00 Calcium 9.6 mg/dL (8.4-10.2) 08/04/18 15:00 Venous Blood Potassium 4.7 mmol/L (3.6-5.2) 08/04/18 15:15 Attending/Attestation - Attestation I have personally seen and examined this patient.: Yes I have fully participated in the care of the patient.: Yes I have reviewed all pertinent clinical information, including history, physical exam and plan: Yes Notes (Text): 08/06/18 18:02 Right Foot Superficial Ulcer with abscess Mild Intermittent Asthma Major Depression Cocaine Abuse Chronic DVT RLE d/c pt to TCU to complete IV antibiotics - Vanco 1 gram IV q 12 x 1 wk cont Coumadin 10 mg daily cont Abilify and Zoloft
--- NOTE | 2018-08-07 12:20 | PQF ---
PROVIDER RESPONSE TEXT: Schizophrenia undifferentiated type REVIEWER QUERY TEXT: Schizophrenia Type A history of Schizophrenia is documented in the Medical Record. Please specify the type if known: Such as: -- Simple schizophrenia -- Catatonic schizophrenia -- Paranoid schizophrenia -- Latent schizophrenia -- Residual -- Cyclic -- Acute undifferentiated -- Chronic undifferentiated -- Other, please specify Psych consult documentation includes: - PSYCHIATRIC Hx Psychophysiologic Disorder: Yes Hx Anxiety: Yes Hx Depression: Yes Hx Schizophrenia: Yes Hx Substance Use: Yes (Cocaine) Assessment: major depression cocaine abuse - [place] Zoloft The patient's Clinical Indicators include: --- Query created by: Courtney Najera on 08/06/2018 9:38 AM Electronically signed by: Odette Avery MD 08/07/2018 12:16 PM
--- NOTE | 2018-08-07 15:03 | PQF ---
PROVIDER RESPONSE TEXT: Major depression recurrent severe REVIEWER QUERY TEXT: Depression Type Major Depression is documented in the Medical Record Please specify the severity -( mild, moderate, or severe) -- Other, please specify 08/05: Psych consult documentation includes; Assessment: major depression cocaine abuse The patient's Clinical Indicators include: -- Query created by: Courtney Najera on 08/06/2018 9:40 AM Electronically signed by: Odette Avery MD 08/07/2018 2:59 PM
== END 2018-08-06 17:52 | DRG 277 ==
LOC: H.ER 14:24 → H.ERHOLD 15:44 → H.MEDSURG1 18:15
PROVIDERS: ADMIT Student in an Organized Health Care Education/Training Program; ATTEND Student in an Organized Health Care Education/Training Program
DX: L03.115 Cellulitis of right lower limb (principal); E11.621 Type 2 diabetes mellitus with foot ulcer; L97.311 Non-pressure chronic ulcer of right ankle limited to breakdown of skin; F14.10 Cocaine abuse, uncomplicated; F20.3 Undifferentiated schizophrenia; I82.511 Chronic embolism and thrombosis of right femoral vein; I82.531 Chronic embolism and thrombosis of right popliteal vein; F33.2 Major depressive disorder, recurrent severe without psychotic features; B95.62 Methicillin resistant Staphylococcus aureus infection as the cause of diseases classified elsewhere; J45.20 Mild intermittent asthma, uncomplicated; F41.9 Anxiety disorder, unspecified; G47.8 Other sleep disorders; Z79.01 Long term (current) use of anticoagulants; Z79.84 Long term (current) use of oral hypoglycemic drugs; Z59.0 Homelessness

== ENCOUNTER 2018-08-06 16:26 | Inpatient (IN) | payer OTHER ==
[2018-08-06 17:34] VITALS: BMI 23.7
[2018-08-06] MEDS: Fluticasone-Salmeterol 250-50mcg Diskus IH SCH (20:48)
[2018-08-06] MEDS ORDERED: Patient's Own Med (Vancomycin/0.9 % Sod Chloride [Vanco 1 Gram/150 Ml-0.9% Nacl] 1 GM) IV SCH (21:00)
[2018-08-07] MEDS: Insulin Regular 100 units/ml SC SCH ×4 (06:32→21:42)
[2018-08-07] MEDS: Fluticasone-Salmeterol 250-50mcg Diskus IH SCH ×2 (08:07→21:41)
[2018-08-07 08:46] LABS: INR 1.5; PROTHROMBIN TIME 17.2 Seconds (9.8-13.1)
[2018-08-07] MEDS ORDERED: Patient's Own Med (Fluticasone/Salmeterol [Fluticasone-Salmeterol 113-14] 1 EACH) IH SCH (09:00)
--- NOTE | 2018-08-07 12:13 | CP.PCM.HP ---
<DaniloDaphne - Last Filed: 08/07/18 13:11> History of Present Illness - History of Present Illness History of Present Illness: 53 year old male patient, with PMHx of DM, Asthma, Schizophrenia, admitted to TCU for continued IV antibiotics secondary to infected right lower extremity ulceration. On 08/04/18, patient was admitted for right lower extremity ulceration with MRSA infection. Patient received three days of IV antibiotics while in house, and transferred to TCU for a continued course of antibiotics. Patient denies any pain to his right lower extremity today while at rest and only experiences mild discomfort when ambulating. Denies nausea/vomiting/fever/shortness of breath/chest pain/chills, however admits to one episode of diarrhea today. PMD: Denies PMHx: DMII, asthma, Schizophrenia PSHx: Denies SHx: Denies tobacco use, admits to cocaine use Previous hospitalizations for foot infection and ulcer at [place] [facility]: NKDA Present on Admission - Present on Admission Any Indicators Present on Admission: Yes History of DVT/PE: Yes Urinary Catheter: No Decubitus Ulcer Present: No Review of Systems - Review of Systems Review of Systems: 10 point review of systems all negative except for what was mentioned in HPI Past Patient History - Infectious Disease Hx of Infectious Diseases: MRSA - Past Medical History & Family History Past Medical History?: Yes - Past Social History Smoking Status: Former Smoker - CARDIAC Hx Cardiac Disorders: No - PULMONARY Hx Respiratory Disorders: Yes Hx Asthma: Yes - NEUROLOGICAL Hx Neurological Disorder: No - HEENT Hx HEENT Problems: No - RENAL Hx Chronic Kidney Disease: No - ENDOCRINE/METABOLIC Hx Endocrine Disorders: Yes (diabetes mellitus type 2) Hx Diabetes Mellitus Type 2: Yes - HEMATOLOGICAL/ONCOLOGICAL Hx Blood Disorders: No - INTEGUMENTARY Hx Dermatological Problems: Yes Hx Cellulitis: Yes (right leg) - MUSCULOSKELETAL/RHEUMATOLOGICAL Hx Musculoskeletal Disorders: No Hx Falls: Yes - GASTROINTESTINAL Hx Gastrointestinal Disorders: No - GENITOURINARY/GYNECOLOGICAL Hx Genitourinary Disorders: No - PSYCHIATRIC Hx Psychophysiologic Disorder: Yes Hx Anxiety: Yes Hx Depression: Yes Hx Schizophrenia: Yes Hx Substance Use: Yes (Cocaine) - SURGICAL HISTORY Hx Surgeries: No - ANESTHESIA Hx Anesthesia: No Hx Anesthesia Reactions: No Hx Malignant Hyperthermia: No Has any member of the family had a problem w/ anesthesia?: No Meds Allergies/Adverse Reactions: Allergies Allergy/AdvReac Type Severity Reaction Status Date / Time No Known Allergies Allergy Verified 08/06/18 17:33 Physical Exam - Constitutional Appears: No Acute Distress - Head Exam Head Exam: ATRAUMATIC, NORMOCEPHALIC - Eye Exam Eye Exam: Normal appearance - Respiratory Exam Respiratory Exam: Clear to Auscultation Bilateral - Cardiovascular Exam Cardiovascular Exam: REGULAR RHYTHM - GI/Abdominal Exam GI & Abdominal Exam: Normal Bowel Sounds, Soft - Extremities Exam Additional comments: Right lower extremity dressing clean/dry/intact - Neurological Exam Neurological exam: Alert, Oriented x3 - Psychiatric Exam Psychiatric exam: Normal Affect, Normal Mood Results - Vital Signs Recent Vital Signs: Last Vital Signs Temp 97.3 F L 08/06/18 21:39 Pulse 78 08/07/18 10:29 Resp 20 08/06/18 21:39 BP 127/81 08/07/18 10:29 Pulse Ox 98 08/07/18 10:29 - Labs Labs: Laboratory Results - last 24 hr 08/06/18 08/07/18 08/07/18 21:06 05:35 08:10 PT 17.2 H INR 1.5 POC Glucose (mg/dL) 127 H 130 H 08/07/18 10:59 PT INR POC Glucose (mg/dL) 107 Assessment & Plan - Assessment and Plan (Free Text) Assessment: 53 year old male patient, with PMHx of DM, asthma, schizophrenia, admitted to TCU for IV antibiotics for right lower extremity ulceration with MRSA Plan: 1. Right lower extremity superficial ulceration with abscess - Acute - Podiatry consult, Dr. Villalba, reccs appreciated; I&D on 07/31/18 by Podiatry - Local wound care to right lower extremity ulceration - Wound cx; MRSA - Blood cx ordered; no growth after 24 hrs - MRI to RLE; no abscess noted - C/w Vancomycin (10 day course of antibiotics total) - C/w pain control 2. DMII - Chronic - HbA1C: 6.5 - ACHS - C/w home medications: Metformin, Januvia 3. Asthma - Chronic - C/w advair 1 puff BID 4. Chronic DVT - Chronic - R LE from [place] medical records: R superficial femoral, deep femoral, and popliteal veins fibrous changes suggestive of chronic DVT. - C/w pain control - C/w Warfarin 10mg PO daily 5. Auditory hallucinations/ sleep disturbance - Chronic - Psych consult, [facility] appreciated - Date & Time Date: 08/07/18 Time: 12:13 <Katelyn Jennings Liana - Last Filed: 08/07/18 17:38> Results - Vital Signs Recent Vital Signs: Last Vital Signs Temp 97.3 F L 08/06/18 21:39 Pulse 78 08/07/18 10:29 Resp 20 08/06/18 21:39 BP 127/81 08/07/18 10:29 Pulse Ox 98 08/07/18 10:29 - Labs Labs: Laboratory Results - last 24 hr 08/06/18 08/07/18 08/07/18 21:06 05:35 08:10 PT 17.2 H INR 1.5 POC Glucose (mg/dL) 127 H 130 H 08/07/18 08/07/18 10:59 15:53 PT INR POC Glucose (mg/dL) 107 91 Attending/Attestation - Attestation I have personally seen and examined this patient.: Yes I have fully participated in the care of the patient.: Yes I have reviewed all pertinent clinical information: Yes Notes (Text): Right Foot Superficial Ulcer with abscess, MRSA Mild Intermittent Asthma Major Depression Cocaine Abuse Chronic DVT RLE admitted to TCU to complete IV antibiotics - Vanco 1 gram IV q 12 x 1 wk Wound care cont Coumadin 10 mg daily , Daily INR cont Abilify and Zoloft
--- NOTE | 2018-08-07 14:33 | CP.PCM.PN ---
Subjective - Date & Time of Evaluation Date of Evaluation: 08/07/18 Time of Evaluation: 14:31 - Subjective Subjective: Podiatry progress note for Dr. Villalba, 53 y/o M with PMHx of DM, asthma and schizophrenia seen and evaluated for right lower extremity cellulitis. Patient is AAOx3 and states the pain has decreased. Patient also seen to be ambulating barefoot in the hallway prior to evaluation. Patient now transferred to TCU. Patient denies any fever, chills, nausea, vomiting, diarrhea, constipation, dizziness, CP or SOB. Objective - Vital Signs/Intake and Output Vital Signs (last 24 hours): Temp Pulse Resp BP Pulse Ox 97.3 F L 78 20 127/81 98 08/06/18 21:39 08/07/18 10:29 08/06/18 21:39 08/07/18 10:29 08/07/18 10:29 - Medications Medications: Current Medications Acetaminophen (Tylenol 325mg Tab) 650 mg PO Q6 PRN PRN Reason: Pain, Mild (1-3) Aripiprazole (Abilify) 5 mg PO DAILY [facility] Last Admin: 08/07/18 08:08 Dose: 5 mg Aripiprazole (Abilify) 5 mg PO HS [facility] Last Admin: 08/06/18 21:26 Dose: 5 mg Clotrimazole (Lotrimin 1% Cream) 1 applic TOP BID [facility] Last Admin: 08/07/18 08:06 Dose: 1 applic Diphenhydramine HCl (Benadryl) 50 mg PO HS PRN PRN Reason: Sleep Gabapentin (Neurontin) 200 mg PO TID [facility] Last Admin: 08/07/18 13:13 Dose: 200 mg Haloperidol (Haldol) 5 mg PO Q4 PRN PRN Reason: Agitation Vancomycin HCl 1 gm/ Sodium (Chloride) 250 mls @ 166.667 mls/hr IVPB Q12 [facility] Last Admin: 08/07/18 08:06 Dose: 166.667 mls/hr Insulin Human Regular (Humulin R) 0 units SC ACHS [facility]; Protocol Last Admin: 08/07/18 11:19 Dose: Not Given Lactic Acid (Lac-Hydrin 12% Lotion (225 G)) 1 applic TOP TID [facility] Last Admin: 08/07/18 13:12 Dose: Not Given Fluticasone/Salmeterol (Advair Diskus 250/50) 1 puff IH Q12 [facility] Last Admin: 08/07/18 08:07 Dose: 1 puff Sertraline HCl (Zoloft) 50 mg PO DAILY [facility] Last Admin: 08/07/18 08:10 Dose: 50 mg Sitagliptin Phosphate (Januvia) 50 mg PO DAILY [facility] Last Admin: 08/07/18 08:10 Dose: 50 mg Trazodone HCl (Desyrel) 200 mg PO HS [facility] Last Admin: 08/06/18 21:21 Dose: 200 mg Warfarin Sodium (Coumadin) 10 mg PO QD5 [facility]; Protocol Stop: 08/07/18 17:01 - Labs Labs: PT 17.2 Seconds (9.8-13.1) H 08/07/18 08:10 INR 1.5 08/07/18 08:10 - Constitutional Appears: Well, Non-toxic, No Acute Distress - Head Exam Head Exam: ATRAUMATIC, NORMOCEPHALIC - Extremities Exam Additional comments: Bilateral Lower Extremity Exam VASC: DP and PT 2/4 bilaterally, CFT less than 3 seconds X 10, no edema, positive erythema to the RLE NEURO: grossly intact DERM: superficial scab noted to the medial malleolus of the right leg with some fluctuance, erythema decreasing, no probe to bone, no tunneling, no malodor, another ulceration noted to the anterior leg about 3 cm X 3 cm with granular base, no erythema, no probe to bone, no tunneling, no malodor, no fluctuance noted. ORTHO: pain on palpation to the previous abscess, MSK 5/5 - Neurological Exam Neurological Exam: Alert, Awake, Oriented x3 - Psychiatric Exam Psychiatric exam: Normal Affect, Normal Mood Assessment and Plan - Assessment and Plan (Free Text) Assessment: 53 y/o male consulted on for RLE cellulitis with right leg superficial abscess, admitted to med surg for IV Abx Plan: Patient seen and evaluated Plan discussed with Dr. Villalba Chart, labs and vitals were reviewed ID consulted, recommendations were appreciated Continue Abx: clindamycin Wound cultures: MRSA Right leg MRI without contrast was ordered: no abscess noted No abscess noted on MRI No podiatric intervention at this time Site was dressed with adaptic, xeroform, DSD Patient could benefit from IV Abx at this time Podiatry will continue to follow patient while in house
[2018-08-08 06:31] LABS: INR 1.9; PROTHROMBIN TIME 21.5 Seconds (9.8-13.1)
[2018-08-08] MEDS: Insulin Regular 100 units/ml SC SCH ×3 (06:40→16:38)
[2018-08-08 07:49] VITALS: RESP 20
[2018-08-08] MEDS: Fluticasone-Salmeterol 250-50mcg Diskus IH SCH ×2 (08:11→20:27)
[2018-08-09] MEDS: Insulin Regular 100 units/ml SC SCH ×5 (00:06→23:47)
[2018-08-09 07:11] LABS: INR 2.2; PROTHROMBIN TIME 25.3 Seconds (9.8-13.1)
[2018-08-09] MEDS: Fluticasone-Salmeterol 250-50mcg Diskus IH SCH ×2 (08:39→20:12)
--- NOTE | 2018-08-09 12:42 | CP.PCM.DIS ---
Provider - Provider Date of Admission: 08/06/18 18:24 Attending physician: Ashley Turner MD Time Spent in preparation of Discharge (in minutes): 30 Diagnosis - Discharge Diagnosis (1) Cellulitis Status: Acute Hospital Course - Lab Results Lab Results: Most Recent Lab Values PT 25.3 Seconds (9.8-13.1) H 08/09/18 06:50 INR 2.2 08/09/18 06:50 POC Glucose (mg/dL) 83 mg/dL (65-110) 08/09/18 05:12 - Hospital Course Hospital Course: 53 year old male patient, with PMHx of DM, asthma, schizophrenia, admitted to TCU for IV antibiotics for right lower extremity ulceration with MRSA. Patient has received a total of 8 days abx since initial micro results. He requesting to sign AMA as he states he has to go to an appointment tomorrow. All risks of leaving and benefits of staying explained. Prescription for Clindamycin and Warfarin given. Patient strenuously instructed to follow up with his PCP or clinic in three days, as well as podiatry and psych. Stable from psych standpoint for dc as well. 1. Right lower extremity superficial ulceration with abscess - Acute - Podiatry consult, Dr. Villalba, reccs appreciated; I&D on 07/31/18 by Podiatry - Local wound care to right lower extremity ulceration - Wound cx; MRSA - Blood cx ordered; no growth after 24 hrs - MRI to RLE; no abscess noted - C/w Vancomycin (10 day course of antibiotics total) - C/w pain control 2. DMII - Chronic - HbA1C: 6.5 - ACHS - C/w home medications: Metformin, Januvia 3. Asthma - Chronic - C/w advair 1 puff BID 4. Chronic DVT - Chronic - R LE US from [place] medical records: R superficial femoral, deep femoral, and popliteal veins fibrous changes suggestive of chronic DVT. - C/w pain control - C/w Warfarin 10mg PO daily 5. Auditory hallucinations/ sleep disturbance - Chronic - Psych consult, reccs appreciated Discharge Exam - Head Exam Additional comments: refused Discharge Plan - Discharge Medications Prescriptions: Clindamycin [Cleocin] 300 mg PO Q8H #9 cap Warfarin Sodium [Jantoven] 7.5 mg PO DAILY #10 tablet - Follow Up Plan Condition: GOOD Disposition: HOME/ ROUTINE
--- NOTE | 2018-08-09 14:32 | CP.PCM.PN ---
Subjective - Date & Time of Evaluation Date of Evaluation: 08/09/18 Time of Evaluation: 14:32 - Subjective Subjective: Podiatry progress note: Dr. Villalba 53 year old male seen and evaluated this AM for right lower extremity cellulitis. Patient states that his feet are less itchy then they were before and that the cream is helping. No acute events overnight. Denies fever, chills, nausea, vomiting, diarrhea, constipation, dizziness, CP or SOB Objective - Vital Signs/Intake and Output Vital Signs (last 24 hours): Temp Pulse Resp BP Pulse Ox 98.3 F 71 20 119/69 99 08/09/18 08:52 08/09/18 08:52 08/09/18 08:52 08/09/18 08:52 08/09/18 08:52 - Medications Medications: Current Medications Acetaminophen (Tylenol 325mg Tab) 650 mg PO Q6 PRN PRN Reason: Pain, Mild (1-3) Aripiprazole (Abilify) 5 mg PO DAILY [facility] Last Admin: 08/09/18 08:39 Dose: 5 mg Aripiprazole (Abilify) 5 mg PO HS [facility] Last Admin: 08/08/18 21:24 Dose: 5 mg Clotrimazole (Lotrimin 1% Cream) 1 applic TOP BID [facility] Last Admin: 08/09/18 08:40 Dose: 1 applic Diphenhydramine HCl (Benadryl) 50 mg PO HS PRN PRN Reason: Sleep Gabapentin (Neurontin) 200 mg PO TID [facility] Last Admin: 08/09/18 12:07 Dose: 200 mg Haloperidol (Haldol) 5 mg PO Q4 PRN PRN Reason: Agitation Vancomycin HCl 1 gm/ Sodium (Chloride) 250 mls @ 166.667 mls/hr IVPB Q12 [facility] Last Admin: 08/09/18 08:37 Dose: 166.667 mls/hr Insulin Human Regular (Humulin R) 0 units SC ACHS [facility]; Protocol Last Admin: 08/09/18 12:07 Dose: Not Given Lactic Acid (Lac-Hydrin 12% Lotion (225 G)) 1 applic TOP TID [facility] Last Admin: 08/09/18 12:07 Dose: 1 applic Fluticasone/Salmeterol (Advair Diskus 250/50) 1 puff IH Q12 [facility] Last Admin: 08/09/18 08:39 Dose: 1 puff Sertraline HCl (Zoloft) 50 mg PO DAILY [facility] Last Admin: 08/09/18 08:41 Dose: 50 mg Sitagliptin Phosphate (Januvia) 50 mg PO DAILY [facility] Last Admin: 08/09/18 08:40 Dose: 50 mg Trazodone HCl (Desyrel) 200 mg PO HS [facility] Last Admin: 08/08/18 21:25 Dose: 200 mg Warfarin Sodium (Coumadin) 10 mg PO QD5 [facility]; Protocol Stop: 08/09/18 17:01 - Labs Labs: PT 25.3 Seconds (9.8-13.1) H 08/09/18 06:50 INR 2.2 08/09/18 06:50 - Constitutional Appears: Non-toxic, No Acute Distress - Head Exam Head Exam: ATRAUMATIC, NORMOCEPHALIC - Extremities Exam Additional comments: Bilateral Lower Extremity Exam VASC: DP and PT 2/4 bilaterally, CFT less than 3 seconds X 10, no edema, positive erythema to the RLE NEURO: grossly intact DERM: superficial scab noted to the medial malleolus of the right leg, erythema decreasing, no probe to bone, no tunneling, no malodor, another ulceration noted to the anterior leg about 2.5 cm X 2 cm with granular base, no erythema, no probe to bone, no tunneling, no malodor, no fluctuance noted; resolving. Xerotic skin appreciated to b/l lower 1/3 of legs. ORTHO: no pain upon palpation, MMT 5/5 - Neurological Exam Neurological Exam: Alert, Awake, Oriented x3 - Psychiatric Exam Psychiatric exam: Normal Affect, Normal Mood - Skin Skin Exam: Warm Assessment and Plan - Assessment and Plan (Free Text) Assessment: 53 year old mal with RLE cellulitis with right leg superficial abscess, admitted for IV Abx Plan: Patient seen and evaluated Plan discussed with Dr. Villalba Chart, labs and vitals were reviewed ID consulted, continue IV abx per ID reccs Wound cultures: MRSA Right leg MRI without contrast was ordered: no abscess noted No podiatric intervention at this time Local wound care to ulceration: xeroform, DSD Lotrisone and amlactin applied to feet b/l, patient to apply BID Stable from podiatry standpoint Pending d/c patient to follow up with Dr. Villalba in [facility] on Friday' 12-3 pm
[2018-08-10 05:59] LABS: INR 2.6; PROTHROMBIN TIME 29.6 Seconds (9.8-13.1)
[2018-08-10] MEDS: Insulin Regular 100 units/ml SC SCH (06:54)
[2018-08-10 07:46] VITALS: BP 123/73; PULSE 77; TEMP 97.6; O2SAT 98
[2018-08-10] MEDS: Fluticasone-Salmeterol 250-50mcg Diskus IH SCH (08:19)
== END 2018-08-10 11:45 | disposition home or self-care (01) | DRG 277 ==
LOC: H.TCU 18:24
PROVIDERS: ADMIT Hospitalist; ATTEND Hospitalist
PROC: 3E03329 Introduction of Other Anti-infective into Peripheral Vein, Percutaneous Approach (ICD-10-PCS; principal; 2018-08-06)
PROC: F07Z9FZ Gait Training/Functional Ambulation Treatment using Assistive, Adaptive, Supportive or Protective Equipment (ICD-10-PCS; 2018-08-06)
PROC: F08Z4FZ Home Management Treatment using Assistive, Adaptive, Supportive or Protective Equipment (ICD-10-PCS; 2018-08-06)
PROC: F07L6FZ Therapeutic Exercise Treatment of Musculoskeletal System - Lower Back / Lower Extremity using Assistive, Adaptive, Supportive or Protective Equipment (ICD-10-PCS; 2018-08-06)
DX: L03.115 Cellulitis of right lower limb (principal); L97.919 Non-pressure chronic ulcer of unspecified part of right lower leg with unspecified severity; I82.511 Chronic embolism and thrombosis of right femoral vein; I82.531 Chronic embolism and thrombosis of right popliteal vein; E11.621 Type 2 diabetes mellitus with foot ulcer; F14.10 Cocaine abuse, uncomplicated; F20.9 Schizophrenia, unspecified; B95.62 Methicillin resistant Staphylococcus aureus infection as the cause of diseases classified elsewhere; J45.20 Mild intermittent asthma, uncomplicated; F41.9 Anxiety disorder, unspecified; G47.8 Other sleep disorders; Z79.84 Long term (current) use of oral hypoglycemic drugs; Z79.01 Long term (current) use of anticoagulants; Z87.891 Personal history of nicotine dependence

== ENCOUNTER 2018-10-06 11:28 | Inpatient (IN) | payer OTHER ==
[2018-10-06 11:28] VITALS: BMI 23.7
--- NOTE | 2018-10-06 13:11 | ED PDOC ---
HPI: Psych/Substance Abuse Time Seen by Provider: 10/06/18 12:18 Chief Complaint (Nursing): Psychiatric Evaluation Chief Complaint (Provider): psych eval Additional Complaint(s): 53 y/o Male with hx of schizophrenia, RLE DVT on Eliquis, DM, HL who presents for psych evaluation due to hearing voices commanding him to kill himself. Pt states that voices are chronic and unchanged but continue to tell him that he is worthless and that he should kill himself. States that he would likely try to hang himself like he did previously. He has been taking his psych medications. Denies HI or visual hallucinations. Denies any recent drug use but has a hx of cocaine and heroine use. Past Medical History Reviewed: Historical Data, Nursing Documentation, Vital Signs Vital Signs: Last Vital Signs Temp 97.5 F L 10/06/18 11:37 Pulse 62 10/06/18 11:52 Resp 19 10/06/18 11:37 BP 131/81 10/06/18 11:52 Pulse Ox 100 10/06/18 11:37 Primary Care Provider: León Macias - Medical History PMH: Anxiety, Asthma, Depression, Diabetes (Type II), Deep Vein Thrombosis, Schizophrenia Denies: Hepatitis, HIV, HTN, Chronic Kidney Disease, Seizures, Sexually Transmitted Disease - Family History Family History: States: Unknown Family Hx - Home Medications Home Medications: Ambulatory Orders Medication Instructions Recorded Albuterol HFA [Ventolin HFA 90 1 puff INH RQ6 PRN #1 inhaler 09/04/18 mcg/actuation (8 g)] Apixaban [Eliquis] 5 mg PO BID #60 tab 09/04/18 SITagliptin [Januvia] 50 mg PO DAILY #30 tab 09/04/18 Sertraline [Zoloft] 25 mg PO DAILY #30 tab 09/04/18 Ziprasidone [Geodon Cap] 40 mg PO BID #60 cap 09/04/18 metFORMIN [glucOPHAGE] 1,000 mg PO BIDCC #60 tab 09/04/18 traZODone [Desyrel] 100 mg PO HS #30 tab 09/04/18 - Allergies Allergies/Adverse Reactions: Allergies Allergy/AdvReac Type Severity Reaction Status Date / Time No Known Allergies Allergy Verified 10/06/18 11:35 Review of Systems Psych: Positive for: Anxiety, Depression, Psychosis, Suicidal ideation Physical Exam - Reviewed Nursing Documentation Reviewed: Yes Vital Signs Reviewed: Yes - Physical Exam Appears: Positive for: Non-toxic Skin: Positive for: Normal Color Eye Exam: Positive for: EOMI, PERRL Cardiovascular/Chest: Positive for: Regular Rate, Rhythm Respiratory: Positive for: Normal Breath Sounds Neurological/Psych: Positive for: Awake, Alert, Oriented, Mood/Affect (flat), bag filler II-XII (no tongue deviation, able to puff cheeks and raise eyebrows symmetrically. ). Negative for: Lethargic, Motor/Sensory Deficits, Facial Droop - Laboratory Results Result Diagrams: 10/06/18 14:18 10/06/18 14:18 - ECG O2 Sat by Pulse Oximetry: 100 Medical Decision Making Medical Decision Makin:1 observation Urine drug screen Crisis evaluation Seen by child welfare caseworker, pt to be admitted under Dr. Avery for schizophrenia CXR, EKG, U/A, CBC, CMP, serum ETOH ordered for admission. CXR read by me: no active disease, unchanged from CXR in 07/2018. EKG: sinus, HR 62, non-specific T wave abnormality in inferior leads. UDS: + cocaine 15:30: pt is medically stable for psychiatric admission. Disposition - Clinical Impression Clinical Impression: Schizophrenia - Patient ED Disposition Is Patient to be Admitted: Yes Discussed With : Odette Avery Counseled Patient/Family Regarding: Studies Performed, Diagnosis - Disposition Disposition: Transfer of Care Disposition Time: 15:37 Condition: FAIR Forms: [facility] ([facility])
[2018-10-06 14:22] LABS: BASO # 0.1 K/uL (0.0-0.2); BASO % 1.1 % (0.0-2.0); EOS # 0.3 K/uL (0.0-0.7); EOS % 5.7 % (0.0-4.0); HEMOGLOBIN 12.6 g/dL (12.0-18.0); LYMPH # 1.7 K/uL (1.0-4.3); LYMPH % 31.2 % (20.0-40.0); MEAN CELL VOLUME 87.6 fl (80.0-94.0); MEAN CORPUSCULAR HEMOGLOBIN 29.3 pg (27.0-31.0); MEAN CORPUSCULAR HGB CONC 33.4 g/dL (33.0-37.0); MEAN PLATELET VOLUME 7.6 fl (7.2-11.7); MONO # 0.6 K/uL (0.0-0.8); MONO % 10.3 % (0.0-10.0); NEUT # 2.8 K/uL (1.8-7.0); NEUT % 51.7 % (50.0-75.0); NRBC % 0.2 % (0.0-0.0); RBC 4.29 Mil/uL (4.40-5.90); RED CELL DISTRIBUTION WIDTH 14.5 % (11.5-14.5); WHITE BLOOD COUNT 5.5 K/uL (4.8-10.8)
[2018-10-06 14:28] LABS: URINE BILIRUBIN NEGATIVE (NEGATIVE); URINE BLOOD NEGATIVE (NEGATIVE); URINE CLARITY CLEAR (Clear); URINE COLOR STRAW (YELLOW); URINE GLUCOSE (UA) NEG (NEGATIVE); URINE LEUKOCYTE ESTERASE NEG Leu/uL (Negative); URINE PROTEIN NEGATIVE (NEGATIVE); URINE UROBILINOGEN 0.2-1.0 mg/dL (0.2-1.0)
[2018-10-06 14:31] LABS: BARBITURATES, UR NEGATIVE (NEGATIVE); BENZODIAZEPINES, UR NEGATIVE (NEGATIVE); OPIATES, UR NEGATIVE (NEGATIVE); PHENCYCLIDINE, UR NEGATIVE (NEGATIVE)
[2018-10-06 14:45] LABS: ALB/GLOB RATIO 1.2 (1.0-2.1); ALBUMIN 3.8 g/dL (3.5-5.0); ALT/SGPT 26 U/L (21-72); AST/SGOT 27 U/L (17-59); BLOOD UREA NITROGEN 15 mg/dl (9-20); GFR NON-AFRICAN AMERICAN > 60
--- NOTE | 2018-10-06 16:33 | RAD ---
Date of service: 10/06/2018 HISTORY: shortness of breath, cough COMPARISON: 07/28/2018. TECHNIQUE: Chest PA and lateral views FINDINGS: LUNGS: No active pulmonary disease. PLEURA: No significant pleural effusion identified. No pneumothorax apparent. CARDIOVASCULAR: No aortic atherosclerotic calcification present. Normal cardiac size. No pulmonary vascular congestion. OSSEOUS STRUCTURES: No significant abnormalities. VISUALIZED UPPER ABDOMEN: Normal. OTHER FINDINGS: None. IMPRESSION: No active disease. No significant interval change compared to the prior examination(s).
[2018-10-06 17:00] VITALS: O2SAT 98
[2018-10-06] MEDS ORDERED: Alum-Mag Hydrox-Simethicone Susp (30 mL) PO PRN (18:22)
[2018-10-06] MEDS ORDERED: DiphenhydrAMINE 50 mg/ml Inj IM PRN (18:22)
[2018-10-06] MEDS ORDERED: Magnesium Hydroxide Susp 30 ml UD PO PRN (18:22)
--- NOTE | 2018-10-06 19:19 | PCM.BM ---
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 ), resourceful, self-reliant, ADL independent, good support system (Circumstantial family support : Pt. identifies who resides in [place] as primary family support, although currently . Pt. reports having frequent communication with 4 brothers who reside in [place]. ), negotiates basic needs, cognitively intact Patient Liabilities: poor support system (patient misses his family and feels socially isolated), substance abuse (marijuana and cocaine), medical problems (multiple medical probems), other (homelessness) - Milieu Protocol Maintain good personal hygiene: daily Encourage regular showers, daily Remind patient to perform daily oral care, daily Assist patient to perform ADL's Maintain personal safety: daily Educate patient to report safety concerns to staff, daily Monitor environment for contraband/sharps, every shift Educate patient to report safety concerns to staff, every shift Monitor environment for contraband/sharps Medication safety: Monitor for expected outcome, potential side effects: daily, every shift, Assess barriers to learning: daily, every shift, Assess readiness for medication education: daily, every shift
--- NOTE | 2018-10-06 19:53 | CP.PCM.CON ---
History of Present Illness - History of Present Illness History of Present Illness: 53 y/o mlae with PMH DM type II, Schizophrenia, DVT ( on eliquis)Asthma came to ER for crisis eval. Patient has long history schizophrenia and is on multiple psychiatric meds with prior psychiatric admissions. He is admitted to psych unit for management . Medicine consult called. . History obtained from patient . He states that came to ER because of worsening auditory hallucinations telling him that he is worthless and that he should kill himself. He has prior suicidal attempt in the past. At present denies any visual hallucinations. He is compliant with his psych meds and denies any recent changes in his medications. He denies any chest pain , SOB, palpitations, PND, orthopnea, urinary sx or changes in bowel movements. Allergies : NKDA PMH : Schizophrenia, HTN, DVT, history drug abuse Surgery ;None Medications:see med rec, ( trazodone, Sertraline, Metformine, Eliquis) Social history: homeless, , has 1 daughter that lives in [place], Denies smoking ETOH abuse, uses cocaine ( last use was 2 weeks ago0 disabled Family history:Mother had schizophrenia ROS; 14 point review of system negative except above Code status : full Review of Systems - Review of Systems All systems: reviewed and no additional remarkable complaints except Past Patient History - Infectious Disease Hx of Infectious Diseases: MRSA - Past Medical History & Family History Past Medical History?: Yes Pertinent Family History: Mother had schizophrenia - Past Social History Smoking Status: Former Smoker Chewing Tobacco Use: No Cigar Use: No Alcohol: None Drugs: Cannabis, Cocaine Home Situation {Lives}: Homeless - CARDIAC Hx Hypertension: No - PULMONARY Hx Asthma: Yes - NEUROLOGICAL Hx Seizures: No - HEENT Hx HEENT Problems: No - RENAL Hx Chronic Kidney Disease: No - ENDOCRINE/METABOLIC Hx Endocrine Disorders: Yes (diabetes mellitus type 2) Hx Diabetes Mellitus Type 2: Yes - HEMATOLOGICAL/ONCOLOGICAL Hx Human Immunodeficiency Virus (HIV): No - INTEGUMENTARY Hx Dermatological Problems: Yes Hx Cellulitis: Yes (right leg) - MUSCULOSKELETAL/RHEUMATOLOGICAL Hx Musculoskeletal Disorders: No Hx Falls: Yes - GASTROINTESTINAL Hx Gastrointestinal Disorders: No - GENITOURINARY/GYNECOLOGICAL Hx Sexually Transmitted Disorders: No - PSYCHIATRIC Hx Anxiety: Yes Hx Depression: Yes Hx Schizophrenia: Yes - SURGICAL HISTORY Hx Surgeries: No - ANESTHESIA Hx Anesthesia: No Hx Anesthesia Reactions: No Hx Malignant Hyperthermia: No Meds Allergies/Adverse Reactions: Allergies Allergy/AdvReac Type Severity Reaction Status Date / Time No Known Allergies Allergy Verified 10/06/18 11:35 - Medications Medications: Current Medications Acetaminophen (Tylenol 325mg Tab) 650 mg PO Q4 PRN PRN Reason: Pain, moderate (4-7) Al Hydrox/Mg Hydrox/Simethicone (Maalox Plus 30 Ml) 30 ml PO Q4 PRN PRN Reason: Dyspepsia Diphenhydramine HCl (Benadryl) 50 mg IM Q6 PRN PRN Reason: Extrapyramidal S/S Unable PO Diphenhydramine HCl (Benadryl) 50 mg PO Q6 PRN PRN Reason: Extrapyramidal Symptoms Haloperidol (Haldol) 5 mg PO Q4 PRN PRN Reason: Agitation Haloperidol Lactate (Haldol) 5 mg IM Q4 PRN PRN Reason: Agitation, Unable to Take PO Lorazepam (Ativan) 2 mg IM Q4 PRN PRN Reason: Anxiety/Agitation,Unable PO Lorazepam (Ativan) 2 mg PO Q4 PRN PRN Reason: Anxiety/Agitation Magnesium Hydroxide (Milk Of Magnesia) 30 ml PO HS PRN PRN Reason: Constipation Sertraline HCl (Zoloft) 25 mg PO DAILY SAROJ Trazodone HCl (Desyrel) 100 mg PO HS SAROJ Ziprasidone (Geodon Cap) 40 mg PO BID SAROJ Physical Exam - Constitutional Appears: Non-toxic, No Acute Distress - Head Exam Head Exam: ATRAUMATIC, NORMAL INSPECTION, NORMOCEPHALIC - Eye Exam Eye Exam: EOMI, Normal appearance, PERRL Pupil Exam: NORMAL ACCOMODATION - ENT Exam ENT Exam: Mucous Membranes Moist - Neck Exam Neck exam: Positive for: Full Rom, Normal Inspection - Respiratory Exam Respiratory Exam: Clear to Auscultation Bilateral, NORMAL BREATHING PATTERN. absent: Rales, Rhonchi, Wheezes - Cardiovascular Exam Cardiovascular Exam: REGULAR RHYTHM, RRR, +S1, +S2. absent: JVD - GI/Abdominal Exam GI & Abdominal Exam: Normal Bowel Sounds, Soft. absent: Distended, Guarding, Rebound, Tenderness - Rectal Exam Rectal Exam: Deferred - Extremities Exam Extremities exam: Positive for: normal inspection, pedal pulses present. Negative for: calf tenderness, pedal edema Additional comments: RLE chronic skin hyperpigmentation with dry scab to medial aspect just above ankle - Back Exam Back exam: NORMAL INSPECTION - Neurological Exam Neurological exam: Alert, CN II-XII Intact, Oriented x3 - Psychiatric Exam Psychiatric exam: Flat Affect - Skin Skin Exam: Dry, Warm Results - Vital Signs Recent Vital Signs: Last Vital Signs Temp 98.3 F 10/06/18 18:05 Pulse 64 10/06/18 18:05 Resp 18 10/06/18 18:05 BP 126/75 10/06/18 18:05 Pulse Ox 98 10/06/18 18:05 - Labs Result Diagrams: 10/06/18 14:18 10/06/18 14:18 Labs: Laboratory Results - last 24 hr 10/06/18 10/06/18 10/06/18 13:13 14:18 14:18 WBC 5.5 RBC 4.29 L Hgb 12.6 Hct 37.6 MCV 87.6 MCH 29.3 MCHC 33.4 RDW 14.5 Plt Count 217 MPV 7.6 Neut % (Auto) 51.7 Lymph % (Auto) 31.2 [place] % (Auto) 10.3 H Eos % (Auto) 5.7 H Baso % (Auto) 1.1 Neut # (Auto) 2.8 Lymph # (Auto) 1.7 [place] # (Auto) 0.6 Eos # (Auto) 0.3 Baso # (Auto) 0.1 Sodium 139 Potassium 3.9 Chloride 103 Carbon Dioxide 26 Anion Gap 14 BUN 15 Creatinine 0.8 Est GFR ( Amer) > 60 Est GFR (Non-Af Amer) > 60 Random Glucose 127 H Calcium 9.0 Total Bilirubin 0.3 AST 27 ALT 26 Alkaline Phosphatase 59 Total Protein 7.1 Albumin 3.8 Globulin 3.3 Albumin/Globulin Ratio 1.2 Urine Color Urine Clarity Urine pH Ur Specific [place] Urine Protein Urine Glucose (UA) Urine Ketones Urine Blood Urine Nitrate Urine Bilirubin Urine Urobilinogen Ur Leukocyte Esterase Urine RBC (Auto) Urine Microscopic WBC Urine Opiates Screen Negative Urine Methadone Screen Negative Ur Barbiturates Screen Negative Ur Phencyclidine Scrn Negative Ur Amphetamines Screen Negative U Benzodiazepines Scrn Negative U Oth Cocaine Metabols Positive H U Cannabinoids Screen Negative Alcohol, Quantitative < 10 10/06/18 14:18 WBC RBC Hgb Hct MCV MCH MCHC RDW Plt Count MPV Neut % (Auto) Lymph % (Auto) [place] % (Auto) Eos % (Auto) Baso % (Auto) Neut # (Auto) Lymph # (Auto) [place] # (Auto) Eos # (Auto) Baso # (Auto) Sodium Potassium Chloride Carbon Dioxide Anion Gap BUN Creatinine Est GFR ( Amer) Est GFR (Non-Af Amer) Random Glucose Calcium Total Bilirubin AST ALT Alkaline Phosphatase Total Protein Albumin Globulin Albumin/Globulin Ratio Urine Color Straw Urine Clarity Clear Urine pH 7.0 Ur Specific [place] 1.008 Urine Protein Negative Urine Glucose (UA) Neg Urine Ketones Negative Urine Blood Negative Urine Nitrate Negative Urine Bilirubin Negative Urine Urobilinogen 0.2-1.0 Ur Leukocyte Esterase Neg Urine RBC (Auto) < 1 Urine Microscopic WBC 1 Urine Opiates Screen Urine Methadone Screen Ur Barbiturates Screen Ur Phencyclidine Scrn Ur Amphetamines Screen U Benzodiazepines Scrn U Oth Cocaine Metabols U Cannabinoids Screen Alcohol, Quantitative Assessment & Plan - Assessment and Plan (Free Text) Assessment: 53 y/o male with PMH DM type II, Schizophrenia, DVT ( on eliquis)Asthma came to ER with worsening auditory hallucinations telling him to kill himself. 1.Schizophrenia Continue management as per psych 2.DM Accuchecks, insulin coverage, diabetic diet Send Hgb A1c Resume Metformin and Januvia 3.History DVT resume Eliquis 4. Chronic RLE stasis dermatitis 5. Asthma resume albuterol 6. Drug abuse cocaine positive counselled
[2018-10-06] MEDS ORDERED: Albuterol HFA 90 mcg/actuation (8 g) INH PRN (21:27)
[2018-10-06] MEDS ORDERED: Glucagon Recombinant 1 mg Inj IM PRN (21:30)
[2018-10-06] MEDS ORDERED: Dextrose 50% SYRINGE Inj (50 ml) IV PRN (21:30)
[2018-10-06] MEDS: Insulin Regular 100 units/ml SC SCH (21:48)
[2018-10-07] MEDS: Insulin Regular 100 units/ml SC SCH ×3 (09:22→17:40)
--- NOTE | 2018-10-07 10:37 | CARD ---
APPROVED REPORT Date of service: 10/06/2018 EKG Measurement Heart [id number] <Conclusion> Normal sinus rhythm Nonspecific T wave abnormality Abnormal ECG
--- NOTE | 2018-10-07 13:40 | PCM.PSYCH ---
Initial Psychiatric Evaluation - Initial Psychiatric Evaluation Type of Admission: Voluntary Legal Status: Capacity Chief Complaint (in patient's own words): I am depressed and I am hearing voices History of Present Illness and Precipitating Events: pt is 53 ys old male with previous psychiatric diagnosis of schizophrenia/ depression and cocaine abuse presented to ER due to auditory hallucinations, increased depression and suicidal ideation by hanging himself pt has not been compliant with medications, or follow up has been depressed in context of being homeless , poor social support, financial stressors, and medical illness, pt reported poor sleep, decreased appetite, feeling hopeless and helpless . relapsed on cocaine , pt started experiencing auditory hallucinations putting him down , feeling worthless and having suicidal ideation to hang himself on the unit pt continues to present with depressed mood and affect, passive suicidal ideation without active plan denied command hallucinations, denied homicidal ideation Current Medications: Active Medications Generic Name Dose Route Start Last Admin Trade Name Freq PRN Reason Stop Dose Admin Acetaminophen 650 mg 10/06/18 18:22 Tylenol 325mg Tab PO Q4 PRN Pain, moderate (4-7) Al Hydrox/Mg Hydrox/Simethicone 30 ml 10/06/18 18:22 Maalox Plus 30 Ml PO Q4 PRN Dyspepsia Albuterol 1 puff 10/06/18 21:27 Ventolin Hfa 90 Mcg/Actuation (8 G) INH RQ6 PRN Wheezing Apixaban 5 mg 10/07/18 09:00 10/07/18 08:39 Eliquis PO 5 mg BID SAROJ Administration Protocol Dextrose 0 ml 10/06/18 21:30 Dextrose 50% Inj IV STAT PRN Hypoglycemia Protocol Protocol Dextrose 0 gm 10/06/18 21:30 Glutose 15 PO ONCE PRN Hypoglycemia Protocol Protocol Diphenhydramine HCl 50 mg 10/06/18 18:22 Benadryl IM Q6 PRN Extrapyramidal S/S Unable PO Diphenhydramine HCl 50 mg 10/06/18 18:22 Benadryl PO Q6 PRN Extrapyramidal Symptoms Glucagon 0 mg 10/06/18 21:30 Glucagen Diagnostic Kit IM STAT PRN Hypoglycemia Protocol Protocol Haloperidol 5 mg 10/06/18 18:22 Haldol PO Q4 PRN Agitation Haloperidol Lactate 5 mg 10/06/18 18:22 Haldol IM Q4 PRN Agitation, Unable to Take PO Insulin Human Regular 0 units 04/30/19 22:00 10/07/18 12:00 Humulin R SC Not Given ACHS SAROJ Protocol Lorazepam 2 mg 10/06/18 18:22 Ativan IM Q4 PRN Anxiety/Agitation,Unable PO Lorazepam 2 mg 10/06/18 18:22 Ativan PO Q4 PRN Anxiety/Agitation Magnesium Hydroxide 30 ml 10/06/18 18:22 Milk Of Magnesia PO HS PRN Constipation Metformin HCl 1,000 mg 10/06/18 21:30 10/07/18 08:39 Glucophage PO 1,000 mg BID SAROJ Administration Sertraline HCl 25 mg 10/07/18 09:00 10/07/18 08:38 Zoloft PO 25 mg DAILY SAROJ Administration Sitagliptin Phosphate 50 mg 10/07/18 09:00 10/07/18 08:38 Januvia PO 50 mg DAILY SAROJ Administration Trazodone HCl 100 mg 10/06/18 22:00 10/06/18 21:31 Desyrel PO 100 mg HS SAROJ Administration Ziprasidone 40 mg 10/06/18 18:30 10/07/18 08:38 Geodon Cap PO 40 mg BID SAROJ Administration Past Psychiatric History - Past Psychiatric History Explanation of prior treatment: multiple hospitalizations history of non compliance History of ETOH/Drug Use: cocaine and cannabis abuse Pertinent Medical Hx (Current Medical&Sleep Prob, Allergies): Allergies Allergy/AdvReac Type Severity Reaction Status Date / Time No Known Allergies Allergy Verified 10/06/18 11:35 Albuterol HFA [Ventolin HFA 90 mcg/actuation (8 g)] 1 puff INH RQ6 PRN #1 inhaler 09/04/18 Apixaban [Eliquis] 5 mg PO BID #60 tab 09/04/18 SITagliptin [Januvia] 50 mg PO DAILY #30 tab 09/04/18 Sertraline [Zoloft] 25 mg PO DAILY #30 tab 09/04/18 Ziprasidone [Geodon Cap] 40 mg PO BID #60 cap 09/04/18 metFORMIN [glucOPHAGE] 1,000 mg PO BIDCC #60 tab 09/04/18 traZODone [Desyrel] 100 mg PO HS #30 tab 09/04/18 Mental Status Examination - Personal Presentation Personal Presentation: Looks stated age - Affect Affect: Constricted, Depressed - Motor Activity Motor Activity: Psychomotor Retardation - Reliability in Providing Information Reliability in Providing Information: Fair - Speech Speech: Relevant - Mood Mood: Depressed - Formal Thought Process Formal Thought Process: Hallucinations, Circumstantial - Hallucinations/Delusions Hallucinations: Auditory - Obsessions/Compulsions Obsessions: No Compulsions: No - Cognitive Functions Orientation: Person, Place, Situation Sensorium: Alert Abstract Thinking: [place] Judgement: Imparied, as evidence by: Poor judgement, Imparied, as evidence by: Lack of insight into illness - Risk Risk: Suicidal, Diminished functioning - Strength & Assets Inventory Strength & Assets Inventory: Life experience - Limitations Additional comments: poor social support DSM 5 DX - DSM 5 DSM 5 Diagnosis: 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 increase gradually zoloft 25mg daily CBT motivational and group therapy [place]; medicine consult/ podiatry consult
[2018-10-08] MEDS: Insulin Regular 100 units/ml SC SCH ×4 (07:12→17:37)
--- NOTE | 2018-10-08 12:19 | PCM.PYCHPN ---
Psychiatric Progress Note - Psychiatric Progress Note Patient seen today, length of contact: pt evaluated discussed with team chart reviewed Patient Chief Complaint: I want to be alone Problems Identified/Issues Discussed: pt seen in bed presenting with depressed mood and affect reported feeling anxious, discussed with pt the effect of cocaine withdrawal on current mental status , discussed increasing dose of zoloft , encouraged pt to participate in treatment and attend groups, pt denied command hallucinations, denied suicidal or homicidal ideation, no reported side effects of medications Medical Problems: multiple hospitalizations history of non compliance DSM 5 Symptoms Update: major depression cocaine abuse Medication Change: Yes (increase zoloft) Medical Record Reviewed: Yes Mental Status Examination - Cognitive Function Orientation: Person, Place, Situation Attention: WNL Concentration: WNL Association: WNL Fund of Knowledge: Poor Decription of patient's judgement and insights: poor insight and judgment - Mood Mood: Depressed - Affect Affect: Constricted, Depressed - Speech Speech: Soft - Formal Thought Process Formal Thought Process: Hallucinations, Circumstantial - Suicidal Ideation Suicidal Ideation: No - Homicidal Ideation Homicidal Ideation: No Goal/Treatment Plan - Goal/Treatment Plan Need for Continued Stay: Severe depression anxiety, Discharge may exacerbated symptoms Progress Toward Problem(s) and Goals/Treatment Plan: abilify 10mg qhs . increase gradually increase zoloft 50mg daily CBT motivational and group therapy podiatry consult
--- NOTE | 2018-10-08 16:27 | CP.PCM.CON ---
History of Present Illness - History of Present Illness History of Present Illness: Podiatry consult note for Dr. Villalba, 53 y/o M with PMHx of DM, asthma and schizophrenia seen and evaluated for right lower extremity itching, xerosis, and erythema. Patient states it started about several days ago. Patient has history of ulceration to the same extremity and patient was treated with IV Abx at this time. Patient denies any open wounds or drainage at this time. Patient denies any pain at this time. Patient denies any fever, chills, nausea, vomiting, diarrhea, constipation, dizziness, CP or SOB. PMD: None PMHx: DM, asthma, Schizophrenia, depression PSHx: Denies Allergies: Denies Hospitalization: Multiple previous admission at [facility] for foot infection and ulcer. Family Hx: Denies Social Hx: + coccain use. + alcohol use. Review of Systems - Review of Systems All systems: reviewed and no additional remarkable complaints except Review of Systems: As per HPI Past Patient History - Infectious Disease Hx of Infectious Diseases: MRSA - Past Medical History & Family History Past Medical History?: Yes - Past Social History Smoking Status: Former Smoker Chewing Tobacco Use: No Cigar Use: No Alcohol: None Drugs: Cannabis, Cocaine Home Situation {Lives}: Homeless - CARDIAC Hx Hypertension: No - PULMONARY Hx Asthma: Yes - NEUROLOGICAL Hx Seizures: No - HEENT Hx HEENT Problems: No - RENAL Hx Chronic Kidney Disease: No - ENDOCRINE/METABOLIC Hx Endocrine Disorders: Yes (diabetes mellitus type 2) Hx Diabetes Mellitus Type 2: Yes - HEMATOLOGICAL/ONCOLOGICAL Hx Human Immunodeficiency Virus (HIV): No - INTEGUMENTARY Hx Dermatological Problems: Yes Hx Cellulitis: Yes (right leg) - MUSCULOSKELETAL/RHEUMATOLOGICAL Hx Musculoskeletal Disorders: No Hx Falls: Yes - GASTROINTESTINAL Hx Gastrointestinal Disorders: No - GENITOURINARY/GYNECOLOGICAL Hx Sexually Transmitted Disorders: No - PSYCHIATRIC Hx Anxiety: Yes Hx Depression: Yes Hx Schizophrenia: Yes - SURGICAL HISTORY Hx Surgeries: No - ANESTHESIA Hx Anesthesia: No Hx Anesthesia Reactions: No Hx Malignant Hyperthermia: No Meds Allergies/Adverse Reactions: Allergies Allergy/AdvReac Type Severity Reaction Status Date / Time No Known Allergies Allergy Verified 10/06/18 11:35 - Medications Medications: Current Medications Acetaminophen (Tylenol 325mg Tab) 650 mg PO Q4 PRN PRN Reason: Pain, moderate (4-7) Al Hydrox/Mg Hydrox/Simethicone (Maalox Plus 30 Ml) 30 ml PO Q4 PRN PRN Reason: Dyspepsia Albuterol (Ventolin Hfa 90 Mcg/Actuation (8 G)) 1 puff INH RQ6 PRN PRN Reason: Wheezing Apixaban (Eliquis) 5 mg PO BID [facility]; Protocol Last Admin: 10/08/18 08:35 Dose: 5 mg Aripiprazole (Abilify) 10 mg PO [facility] Last Admin: 10/07/18 21:04 Dose: 10 mg Dextrose (Dextrose 50% Inj) 0 ml IV STAT PRN; Protocol PRN Reason: Hypoglycemia Protocol Dextrose (Glutose 15) 0 gm PO ONCE PRN; Protocol PRN Reason: Hypoglycemia Protocol Diphenhydramine HCl (Benadryl) 50 mg IM Q6 PRN PRN Reason: Extrapyramidal S/S Unable PO Diphenhydramine HCl (Benadryl) 50 mg PO Q6 PRN PRN Reason: Extrapyramidal Symptoms Glucagon (Glucagen Diagnostic Kit) 0 mg IM STAT PRN; Protocol PRN Reason: Hypoglycemia Protocol Haloperidol (Haldol) 5 mg PO Q4 PRN PRN Reason: Agitation Haloperidol Lactate (Haldol) 5 mg IM Q4 PRN PRN Reason: Agitation, Unable to Take PO Insulin Human Regular (Humulin R) 0 units SC [facility]; Protocol Last Admin: 10/08/18 12:34 Dose: Not Given Lorazepam (Ativan) 2 mg IM Q4 PRN PRN Reason: Anxiety/Agitation,Unable PO Magnesium Hydroxide (Milk Of Magnesia) 30 ml PO HS PRN PRN Reason: Constipation Metformin HCl (Glucophage) 1,000 mg PO BID [facility] Last Admin: 10/08/18 08:35 Dose: 1,000 mg Sertraline HCl (Zoloft) 50 mg PO DAILY [facility] Sitagliptin Phosphate (Januvia) 50 mg PO DAILY [facility] Last Admin: 10/08/18 08:35 Dose: 50 mg Trazodone HCl (Desyrel) 100 mg PO [facility] Last Admin: 10/07/18 21:03 Dose: 100 mg Physical Exam - Constitutional Appears: Well, Non-toxic, No Acute Distress - Head Exam Head Exam: ATRAUMATIC, NORMOCEPHALIC - Extremities Exam Additional comments: Bilateral Lower Extremity Exam VASC: DP and PT 2/4 bilaterally, CFT less than 3 seconds X 10, no edema, positive erythema to the RLE NEURO: grossly intact DERM: superficial xerosis noted to the anterior aspect of the right leg with healed ulceration, xerosis also noted to the dorsum of right foot with minimal erythema, no open wounds, no probe to bone, no tunneling, no malodor, no interdigital maceration noted, dry scaling peeling skin noted ORTHO: pain on palpation to the abscess, MSK 5/5 - Neurological Exam Neurological exam: Alert, Oriented x3 - Psychiatric Exam Psychiatric exam: Normal Affect, Normal Mood Results - Vital Signs Recent Vital Signs: Last Vital Signs Temp 97.7 F 10/08/18 09:00 Pulse 85 10/08/18 09:00 Resp 18 10/08/18 09:00 BP 122/89 10/08/18 09:00 Pulse Ox 98 10/06/18 18:05 - Labs Result Diagrams: 10/06/18 14:18 10/06/18 14:18 Labs: Laboratory Results - last 24 hr 10/07/18 10/07/18 10/07/18 07:52 17:07 21:02 POC Glucose (mg/dL) 116 H 127 H RPR Nonreactive 10/08/18 10/08/18 06:48 12:27 POC Glucose (mg/dL) 99 90 RPR Assessment & Plan - Assessment and Plan (Free Text) Assessment: 53 y/o male patient seen and evaluated due to complaints of xerosis and itching to right lower extremity Plan: Patient seen and evaluated Plan discussed with Dr. Helen BORDEN, Chart reviewed Patient Rx Lotrimin Topical Cream for application to right lower extremity BID- to apply to affected areas Patient advised to keep RLE clean and dry, no dressing applied No clinical signs of infection noted at this time No other podiatric intervention at this time- no imaging or labs indicated at this time Please re-consult Podiatry as needed Thank You for the consult - Date & Time Date: 10/09/18 Time: 05:24
[2018-10-09] MEDS: Insulin Regular 100 units/ml SC SCH ×4 (08:00→21:36)
[2018-10-09 09:35] VITALS: RESP 18
--- NOTE | 2018-10-09 14:07 | PCM.PYCHPN ---
Psychiatric Progress Note - Psychiatric Progress Note Patient seen today, length of contact: pt evaluated discussed with team chart reviewed Patient Chief Complaint: I feel better with current medicine Problems Identified/Issues Discussed: pt evaluated, reported improved mood with increasing the zoloft, no reported side effects, more visible on the unit, interacting more with staff and other patients, reported improved sleep , no changes in appetite, , reported clearing off of the auditory hallucinations denied current suicidal or homicidal ideation, Medical Problems: multiple hospitalizations history of non compliance DSM 5 Symptoms Update: major depression cocaine abuse cannabis abuse Medication Change: No Medical Record Reviewed: Yes Mental Status Examination - Cognitive Function Orientation: Person, Place, Situation Attention: WNL Concentration: WNL Association: WNL Fund of Knowledge: Poor Decription of patient's judgement and insights: poor insight and judgment - Mood Mood: Depressed - Affect Affect: Constricted, Depressed - Speech Speech: Soft - Formal Thought Process Formal Thought Process: Hallucinations, Circumstantial - Suicidal Ideation Suicidal Ideation: No - Homicidal Ideation Homicidal Ideation: No Goal/Treatment Plan - Goal/Treatment Plan Need for Continued Stay: Severe depression anxiety, Discharge may exacerbated symptoms Progress Toward Problem(s) and Goals/Treatment Plan: abilify 10mg qhs . increase gradually i zoloft 50mg daily CBT motivational and group therapy podiatry consult appreciated
[2018-10-09] MEDS ORDERED: Permethrin 5% CREAM TOP ONE (20:59)
--- NOTE | 2018-10-09 21:19 | CP.PCM.PN ---
Subjective - Date & Time of Evaluation Date of Evaluation: 10/09/18 Time of Evaluation: 21:19 - Subjective Subjective: Called to evaluate this patient with a painful lesion on the right wrist and he complains of generalized pruritus. Examination: Right wrist dorsal aspect with a localized area of raised erythema, warm, swollen painful. Not flocculent. Also there is an area lf loss of skin approximately 3x2cm at the distal right leg. The patient referred that he had he had a wound with dry skin that slushed off after he began applying a cream recommended by Podiatry. Also there were generalized diffuse Pruritic papular rashes at both shoulders, the back and thighs I&P 1. The localized lesion at the right wrist is a Folliculitis -I recommended warm compressors - Antibiotics Bactrim DS after blood culture. The bactrim is because the patient has hx of MRSA 2. The right lower leg has an open wound which is clean and free of Pus -Podiatry will be recalled - Wound culture - The above antibiotic will also cover this wound 3. The Diffuse pruritic skin lesions appears to be that of Scabies. - Treat for Scabies with Permethrin - Contact isolation - Consider ID consult #. Treat Diabetes Mellitus Nino Toney MD Objective - Vital Signs/Intake and Output Vital Signs (last 24 hours): Temp Pulse Resp BP Pulse Ox 98.0 F 62 18 117/71 98 10/09/18 09:00 10/09/18 09:00 10/09/18 09:00 10/09/18 09:00 10/06/18 18:05 - Medications Medications: Current Medications Acetaminophen (Tylenol 325mg Tab) 650 mg PO Q4 PRN PRN Reason: Pain, moderate (4-7) Al Hydrox/Mg Hydrox/Simethicone (Maalox Plus 30 Ml) 30 ml PO Q4 PRN PRN Reason: Dyspepsia Albuterol (Ventolin Hfa 90 Mcg/Actuation (8 G)) 1 puff INH RQ6 PRN PRN Reason: Wheezing Apixaban (Eliquis) 5 mg PO BID [facility]; Protocol Last Admin: 10/09/18 16:43 Dose: 5 mg Aripiprazole (Abilify) 10 mg PO HS [facility] Last Admin: 10/08/18 21:03 Dose: 10 mg Clotrimazole (Lotrimin 1% Cream) 1 applic TOP BID [facility] Last Admin: 10/09/18 16:43 Dose: 1 applic Dextrose (Dextrose 50% Inj) 0 ml IV STAT PRN; Protocol PRN Reason: Hypoglycemia Protocol Dextrose (Glutose 15) 0 gm PO ONCE PRN; Protocol PRN Reason: Hypoglycemia Protocol Diphenhydramine HCl (Benadryl) 50 mg IM Q6 PRN PRN Reason: Extrapyramidal S/S Unable PO Diphenhydramine HCl (Benadryl) 50 mg PO Q6 PRN PRN Reason: Extrapyramidal Symptoms Glucagon (Glucagen Diagnostic Kit) 0 mg IM STAT PRN; Protocol PRN Reason: Hypoglycemia Protocol Haloperidol (Haldol) 5 mg PO Q4 PRN PRN Reason: Agitation Haloperidol Lactate (Haldol) 5 mg IM Q4 PRN PRN Reason: Agitation, Unable to Take PO Insulin Human Regular (Humulin R) [address] [facility]; Protocol Last Admin: 10/09/18 19:51 Dose: Not Given Lorazepam (Ativan) 2 mg IM Q4 PRN PRN Reason: Anxiety/Agitation,Unable PO Magnesium Hydroxide (Milk Of Magnesia) 30 ml PO HS PRN PRN Reason: Constipation Metformin HCl (Glucophage) 1,000 mg PO BID [facility] Last Admin: 10/09/18 16:43 Dose: 1,000 mg Permethrin (Permethrin 5% Cream) 1 applic TOP ONCE ONE Stop: 10/09/18 21:00 Sertraline HCl (Zoloft) 50 mg PO DAILY [facility] Last Admin: 10/09/18 08:35 Dose: 50 mg Sitagliptin Phosphate (Januvia) 50 mg PO DAILY [facility] Last Admin: 10/09/18 08:35 Dose: 50 mg Trazodone HCl (Desyrel) 100 mg PO HS [facility] Last Admin: 10/08/18 21:03 Dose: 100 mg - Labs Labs: 10/06/18 14:18 10/06/18 14:18
[2018-10-09 22:17] LABS: BASO % 0.7 % (0.0-2.0); EOS # 0.2 K/uL (0.0-0.7); EOS % 3.2 % (0.0-4.0); HEMOGLOBIN 14.1 g/dL (12.0-18.0); LYMPH # 1.3 K/uL (1.0-4.3); LYMPH % 23.8 % (20.0-40.0); MEAN CORPUSCULAR HEMOGLOBIN 29.4 pg (27.0-31.0); MEAN CORPUSCULAR HGB CONC 33.4 g/dL (33.0-37.0); MONO # 0.8 K/uL (0.0-0.8); MONO % 14.6 % (0.0-10.0); NEUT # 3.2 K/uL (1.8-7.0); NEUT % 57.7 % (50.0-75.0); NRBC % 0.2 % (0.0-0.0); RBC 4.79 Mil/uL (4.40-5.90); RED CELL DISTRIBUTION WIDTH 14.6 % (11.5-14.5); WHITE BLOOD COUNT 5.6 K/uL (4.8-10.8)
[2018-10-09] MEDS: Tmp-Smz 800 mg-160 mg DS Tab PO SCH (22:22)
--- NOTE | 2018-10-10 08:59 | PCM.PYCHPN ---
Psychiatric Progress Note - Psychiatric Progress Note Patient seen today, length of contact: pt evaluated discussed with team chart reviewed Patient Chief Complaint: pt has remained very depressed and still internally preoccupied and responding to hallucinations .pt still has poor insight about his psychosis and need further stabilization. Medication Change: No Medical Record Reviewed: Yes Mental Status Examination - Cognitive Function Orientation: Person, Place, Situation Attention: WNL Concentration: WNL Association: WNL Fund of Knowledge: Poor - Mood Mood: Depressed - Affect Affect: Constricted, Depressed - Speech Speech: Soft - Formal Thought Process Formal Thought Process: Hallucinations, Circumstantial - Suicidal Ideation Suicidal Ideation: No - Homicidal Ideation Homicidal Ideation: No Goal/Treatment Plan - Goal/Treatment Plan Need for Continued Stay: Severe depression anxiety, Discharge may exacerbated symptoms Progress Toward Problem(s) and Goals/Treatment Plan: will continue to stabilize the pt with therapy and meds . Disposition as per dr fofana.
[2018-10-10] MEDS: Tmp-Smz 800 mg-160 mg DS Tab PO SCH ×2 (09:31→21:03)
[2018-10-10] MEDS: Insulin Regular 100 units/ml SC SCH ×4 (09:32→23:42)
[2018-10-11] MEDS: Tmp-Smz 800 mg-160 mg DS Tab PO SCH ×2 (09:15→21:08)
[2018-10-11] MEDS: Insulin Regular 100 units/ml SC SCH ×3 (09:17→17:59)
--- NOTE | 2018-10-11 14:26 | PCM.PYCHPN ---
Psychiatric Progress Note - Psychiatric Progress Note Patient seen today, length of contact: pt evaluated discussed with team chart reviewed Patient Chief Complaint: pt has remained somewhat guarded and paranoid today and still very depressed and still internally preoccupied and responding to hallucinations .pt still has poor insight about his psychosis and need further stabilization. Medication Change: No Medical Record Reviewed: Yes Mental Status Examination - Cognitive Function Orientation: Person, Place, Situation Attention: WNL Concentration: WNL Association: WNL Fund of Knowledge: Poor - Mood Mood: Depressed - Affect Affect: Constricted, Depressed - Speech Speech: Soft - Formal Thought Process Formal Thought Process: Hallucinations, Circumstantial - Suicidal Ideation Suicidal Ideation: No - Homicidal Ideation Homicidal Ideation: No Goal/Treatment Plan - Goal/Treatment Plan Need for Continued Stay: Severe depression anxiety, Discharge may exacerbated symptoms Progress Toward Problem(s) and Goals/Treatment Plan: will continue to stabilize the pt with therapy and meds . Disposition as per dr fofana.
[2018-10-12] MEDS ORDERED: Insulin Regular 100 units/ml SC SCH (07:30)
[2018-10-12 09:07] VITALS: BP 118/76; PULSE 62; TEMP 97.7
[2018-10-12] MEDS: Tmp-Smz 800 mg-160 mg DS Tab PO SCH (09:33)
--- NOTE | 2018-10-12 09:44 | PCM.PYCHDC ---
Mental Status Examination - Mental Status Examination Orientation: Person, Place, Situation Memory: Intact Mood: Neutral Affect: Broad Speech: Appropriate Attention: WNL Concentration: WNL Association: WNL Fund of Knowledge: WNL Formal Thought Process: No Impairment Description of patient's judgement and insight: poor insight and judgment Psychotic Thoughts and Behaviors: pt on discharge denied perceptual disturbances, non elicited Suicidal Ideation: No Current Homicidal Ideation?: No Discharge Summary - Discharge Note Reason for Hospitalization: pt is 53 ys old male with previous psychiatric diagnosis of schizophrenia/ depression and cocaine abuse presented to ER due to auditory hallucinations, increased depression and suicidal ideation by hanging himself pt has not been compliant with medications, or follow up has been depressed in context of being homeless , poor social support, financial stressors, and medical illness, pt reported poor sleep, decreased appetite, feeling hopeless and helpless . relapsed on cocaine , pt started experiencing auditory hallucinations putting him down , feeling worthless and having suicidal ideation to hang himself on the unit pt continues to present with depressed mood and affect, passive suicidal ideation without active plan denied command hallucinations, denied homicidal ideation Laboratory Data: Abnormal Lab Results 10/11/18 10/12/18 20:09 06:17 POC Glucose (mg/dL) 88 92 Consultations:: List each consultation separately and include: 1. Reason for request. 2. Findings. 3. Follow-up Summary of Hospital Course include:: 1. Description of specific treatment plan utilized for patients during their course of treatmen. 2. Summarize the time- course for resolution of acute symptoms and/or regressed behaviors. 3. Describe issues identified and worked on during hospitalization. 4. Describe medication utilized. 5. Describe medical problems identified and treated. 6. Reassessment of suicide risk Summary of Hospital Course: pt on admission presented with depressed mood and reported non command auditory hallucinations, pt was started on abilify and zoloft, motivational therapy provided in reference to cocaine use internal medicine and podiatry consults done pt gradually presented with brighter affect, was compliant with treatment , no reported side effects of medications on discharge mental status was stable, pt denied suicidal or homicidal ideation denied perceptual disturbances, follow up arranged by outreach and education social worker at outpatient [facility] program/ freedom of choice - Final Diagnosis (DSM 5) Condition upon Discharge: FAIR 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 increase gradually i zoloft 50mg daily CBT motivational and group therapy podiatry consult appreciated Prescriptions/Medication Reconciliation: ARIPiprazole [Abilify] 10 mg PO HS 30 Days #30 tab Clotrimazole 1% Cream [Lotrimin 1% CREAM] 1 applic TOP BID 14 Days #1 tube Sertraline [Zoloft] 50 mg PO DAILY 30 Days #30 tab Sulfamethoxazole/Trimethoprim [Bactrim DS Tab] 1 tab PO Q12 7 Days #14 tab traZODone [Desyrel] 100 mg PO HS 30 Days #30 tab - Antipsychotic Medications Pt discharged on 2 or more routine antipsychotic medications: No
== END 2018-10-12 12:31 | disposition home or self-care (01) | DRG 430 ==
LOC: H.ER 11:28 → H.ERHOLD 15:37 → H.PSYCH 18:10
PROVIDERS: ADMIT Psychiatry & Neurology Psychiatry; ATTEND Psychiatry & Neurology Psychiatry
PROC: GZHZZZZ Group Psychotherapy (ICD-10-PCS; principal; 2018-10-06)
PROC: HZ52ZZZ Individual Psychotherapy for Substance Abuse Treatment, Cognitive-Behavioral (ICD-10-PCS; 2018-10-06)
PROC: HZ57ZZZ Individual Psychotherapy for Substance Abuse Treatment, Motivational Enhancement (ICD-10-PCS; 2018-10-06)
DX: F33.3 Major depressive disorder, recurrent, severe with psychotic symptoms (principal); F14.20 Cocaine dependence, uncomplicated; Z91.14 Patient's other noncompliance with medication regimen; Z91.19 Patient's noncompliance with other medical treatment and regimen; Z86.718 Personal history of other venous thrombosis and embolism; R45.851 Suicidal ideations; Z79.01 Long term (current) use of anticoagulants; Z79.84 Long term (current) use of oral hypoglycemic drugs; Z87.891 Personal history of nicotine dependence; Z59.0 Homelessness; E11.9 Type 2 diabetes mellitus without complications; J45.909 Unspecified asthma, uncomplicated; L85.3 Xerosis cutis; B86 Scabies; Z71.51 Drug abuse counseling and surveillance of drug abuser